=== PATIENT | female | born 1955 | race Caucasian/White ===

== ENCOUNTER 2016-10-23 09:10 | Outpatient (CLI) | payer OTHER ==
[~2016-10-23] VITALS: Ht 139.7 cm; Wt 700.0 kg
[~2016-10-23 09:10] MED LIST: CATS CLAW OR; CIPR-250 PO; EFFE37.527 OR; FISH1000 OR; HYDR50TA8 OR; INFL10VL IV; NS 1,000 ML IV SCH; PAXI10TA OR; PRED5TAB OR; PRIMI25TA OR; SIMV40TA2 OR; TYL PO; VICO5TAB16 PO; VITAMIN D50000 UNT OR; ZOCO5TAB OR; [UNRECOGNIZED DRUG - OTHER] OR; diphenhydrAMINE 25 MG CAP PO SCH
[2016-10-23] MEDS ORDERED: inFLIXimab INJECTION 700 MG in NS 180 ML IV ONE (09:15)
== END 2016-10-23 12:00 | disposition home or self-care (01) ==
LOC: M INFU 09:10
PROVIDERS: ATTEND Internal Medicine Gastroenterology
DX: K50.00 Crohn's disease of small intestine without complications (principal); Z79.52 Long term (current) use of systemic steroids; Z79.899 Other long term (current) drug therapy; Z88.2 Allergy status to sulfonamides; Z88.8 Allergy status to other drugs, medicaments and biological substances
CPT/HCPCS: 96413; 96415; J1745

== ENCOUNTER 2016-11-16 09:13 | Outpatient (CLI) | payer OTHER ==
[~2016-11-16] VITALS: Ht 139.7 cm; Wt 62.0 kg
[~2016-11-16 09:13] MED LIST changes: -NS 1,000 ML IV SCH; -diphenhydrAMINE 25 MG CAP PO SCH
[2016-11-16] MEDS ORDERED: NS 1,000 ML IV SCH (09:15)
[2016-11-16] MEDS ORDERED: diphenhydrAMINE 25 MG CAP PO ONE (09:30)
[2016-11-16] MEDS ORDERED: inFLIXimab INJECTION 700 MG in NS 180 ML IV ONE (10:00)
== END 2016-11-16 12:15 | disposition home or self-care (01) ==
LOC: M INFU 09:13
PROVIDERS: ATTEND Internal Medicine Gastroenterology
DX: K50.00 Crohn's disease of small intestine without complications (principal); Z91.041 Radiographic dye allergy status; Z88.8 Allergy status to other drugs, medicaments and biological substances; Z88.1 Allergy status to other antibiotic agents; Z88.2 Allergy status to sulfonamides; Z79.899 Other long term (current) drug therapy
CPT/HCPCS: 96413; 96415; J1745

== ENCOUNTER 2016-12-14 08:44 | Outpatient (CLI) | payer OTHER ==
[~2016-12-14] VITALS: Ht 139.7 cm; Wt 62.0 kg
[~2016-12-14 08:44] MED LIST changes: +diphenhydrAMINE 25 MG CAP PO SCH
[2016-12-14] MEDS ORDERED: NS 1,000 ML IV SCH (09:00)
[2016-12-14] MEDS ORDERED: inFLIXimab INJECTION 700 MG in NS 180 ML IV ONE (09:00)
== END 2016-12-14 11:45 | disposition home or self-care (01) ==
LOC: M INFU 08:44
PROVIDERS: ATTEND Internal Medicine Gastroenterology
DX: K50.00 Crohn's disease of small intestine without complications (principal); Z79.899 Other long term (current) drug therapy; Z88.8 Allergy status to other drugs, medicaments and biological substances; Z88.2 Allergy status to sulfonamides
CPT/HCPCS: 96413; 96415; J1745

== ENCOUNTER → 2016-12-21 | Outpatient (CLI) | payer OTHER ==
[~2016-12-21] MED LIST changes: -diphenhydrAMINE 25 MG CAP PO SCH
--- NOTE | 2016-12-21 18:15 | REP ---
RIGHT KNEE: HISTORY: Swelling and pain. COMPARISON: 10/31/2006. There is tricompartmental marginal osteophytosis which has increased. Two limited views show no evidence of an acute fracture. 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 These two limited views show no evidence of an acute fracture. IMPRESSION: Chronic changes as described above. If an effusion is of clinical concern, then an MRI would be warranted. Signed by Drew Domingo DO 12/21/2016 06:43 P
== END ==
LOC: M RAD 16:59
PROVIDERS: ATTEND Physician Assistant Medical
DX: M25.561 Pain in right knee (principal); M79.89 Other specified soft tissue disorders

== ENCOUNTER 2017-01-11 09:30 | Outpatient (CLI) | payer OTHER ==
[~2017-01-11] VITALS: Ht 139.7 cm; Wt 62.0 kg
[~2017-01-11 09:30] MED LIST changes: +diphenhydrAMINE 25 MG CAP PO SCH
[2017-01-11] MEDS ORDERED: NS 1,000 ML IV SCH (09:45)
[2017-01-11] MEDS ORDERED: inFLIXimab INJECTION 700 MG in NS 180 ML IV ONE (09:45)
== END 2017-01-11 12:35 | disposition home or self-care (01) ==
LOC: M INFU 09:30
PROVIDERS: ATTEND Internal Medicine Gastroenterology
DX: K50.00 Crohn's disease of small intestine without complications (principal); Z79.899 Other long term (current) drug therapy; Z79.52 Long term (current) use of systemic steroids; Z88.8 Allergy status to other drugs, medicaments and biological substances
CPT/HCPCS: 96413; 96415; J1745

== ENCOUNTER 2017-02-08 08:57 | Outpatient (CLI) | payer OTHER ==
[~2017-02-08] VITALS: Ht 139.7 cm; Wt 62.0 kg
[2017-02-08] MEDS ORDERED: NS 1,000 ML IV SCH (09:15)
[2017-02-08] MEDS ORDERED: inFLIXimab INJECTION 700 MG in NS 180 ML IV ONE (10:00)
== END 2017-02-08 12:00 | disposition home or self-care (01) ==
LOC: M INFU 08:57
PROVIDERS: ATTEND Internal Medicine Gastroenterology
DX: K50.00 Crohn's disease of small intestine without complications (principal); Z91.041 Radiographic dye allergy status; Z88.8 Allergy status to other drugs, medicaments and biological substances; Z88.2 Allergy status to sulfonamides; Z88.1 Allergy status to other antibiotic agents; Z79.899 Other long term (current) drug therapy
CPT/HCPCS: 96413; 96415; J1745

== ENCOUNTER → 2017-03-06 | Outpatient (CLI) | payer OTHER ==
[~2017-03-06] MED LIST changes: -diphenhydrAMINE 25 MG CAP PO SCH
[2017-03-06 14:16] LABS: BASO % 0.4 % (0.0-1.0); EOS # 0.1 K/mm3 (0.0-0.50); LARGE UNSTAINED CELL # 0.1 K/mm3 (0.0-0.4); LARGE UNSTAINED CELL % 2.8 % (0.0-4.0); LYMPH # 1.6 K/mm3 (1.5-4.5); LYMPH % 38.8 % (24.0-44.0); MEAN CORPUSCULAR HEMOGLOBIN 30.7 pg (27.0-33.0); MEAN CORPUSCULAR HGB CONC 32.9 g/dl (32.0-36.5); MEAN CORPUSCULAR VOLUME 93.3 fl (80.0-96.0); MONO # 0.3 K/mm3 (0.0-0.8); MONO % 6.8 % (0.0-5.0); NEUTROPHILS # 1.9 K/mm3 (1.8-7.7); NEUTROPHILS % 49.3 % (36.0-66.0); PLATELET COUNT, AUTOMATED 289 k/mm3 (150-450); RED CELL DISTRIBUTION WIDTH 14.6 % (11.5-14.5); WHITE BLOOD COUNT 3.9 K/mm3 (4.0-10.0)
[2017-03-06 15:26] LABS: ALBUMIN 3.9 GM/DL (3.2-5.2); ALBUMIN/GLOBULIN RATIO 1.18 (1.00-1.93); ALKALINE PHOSPHATASE 52 U/L (45-117); ALT/SGPT 55 U/L (12-78); ANION GAP 8 MEQ/L (8-16); AST/SGOT 27 U/L (15-37); BILIRUBIN,TOTAL 0.3 MG/DL (0.2-1.0); BLOOD UREA NITROGEN 14 MG/DL (7-18); CALCIUM LEVEL 9.2 MG/DL (8.8-10.2); CARBON DIOXIDE LEVEL 29 MEQ/L (21-32); CHLORIDE LEVEL 103 MEQ/L (98-107); CHOLESTEROL LEVEL 204 MG/DL (<200); CREATININE FOR GFR 0.79 MG/DL (0.55-1.02); GLOMERULAR FILTRATION RATE > 60.0 (>45); GLUCOSE, FASTING 85 MG/DL (80-110); POTASSIUM SERUM 4.7 MEQ/L (3.5-5.1); SODIUM LEVEL 140 MEQ/L (136-145); TOTAL PROTEIN 7.2 GM/DL (6.4-8.2); TRIGLYCERIDES LEVEL 180 MG/DL (<150)
== END ==
LOC: M SMT 11:52
PROVIDERS: ATTEND Family Medicine
DX: E78.2 Mixed hyperlipidemia (principal); K21.9 Gastro-esophageal reflux disease without esophagitis

== ENCOUNTER 2017-03-08 08:29 | Outpatient (CLI) | payer OTHER ==
[~2017-03-08] VITALS: Ht 139.7 cm; Wt 62.0 kg
[~2017-03-08 08:29] MED LIST changes: +diphenhydrAMINE 25 MG CAP PO SCH
[2017-03-08] MEDS ORDERED: NS 1,000 ML IV SCH (08:45)
[2017-03-08] MEDS ORDERED: inFLIXimab INJECTION 700 MG in NS 180 ML IV ONE (09:00)
== END 2017-03-08 11:35 | disposition home or self-care (01) ==
LOC: M INFU 08:29
PROVIDERS: ATTEND Internal Medicine Gastroenterology
DX: K50.00 Crohn's disease of small intestine without complications (principal); Z91.041 Radiographic dye allergy status; Z88.8 Allergy status to other drugs, medicaments and biological substances; Z88.2 Allergy status to sulfonamides; Z88.1 Allergy status to other antibiotic agents; Z79.899 Other long term (current) drug therapy
CPT/HCPCS: 96413; 96415; J1745

== ENCOUNTER → 2017-04-02 | Outpatient (CLI) | payer OTHER ==
[~2017-04-02] MED LIST changes: -diphenhydrAMINE 25 MG CAP PO SCH
--- NOTE | 2017-04-04 10:50 | REPMRS ---
Patient History The patient states she had a clinical breast exam in 12/15 Patient is postmenopausal and had first child at age 31. Family history of prostate cancer in maternal grandfather at age 81. Digital Woman Screen Mammo: April 02, 2017 - Exam #: [id number] Bilateral CC and MLO view(s) were taken. Technologist: Christelle Alatorre, Technologist Prior study comparison: November 19, 2015, digital woman screen mammo performed at [facility] to [facility]. February 17, 2014, digital woman screen mammo performed at [facility] to [facility]. November 18, 2012, digital woman screen mammo performed at [facility]. FINDINGS: The breast tissue is heterogeneously dense. This may lower the sensitivity of mammography. There is a moderate amount of heterogeneously dense fibroglandular tissue which is fairly symmetric. There is no interval development of dominant mass, architectural distortion, or clustered microcalcification typical of malignancy. There has been no change in the appearance of the mammogram from the prior studies. ASSESSMENT: BI-RADS/ACR category 1 mammogram. Negative. Recommendation Routine screening mammogram of both breasts in 1 year (for women over age 40). This mammogram was interpreted with the aid of an FDA-approved computer-aided dectection system. Electronically Signed By: Kyrie Dewey MD 04/04/17 [id number]
== END ==
LOC: M WHC 14:33
PROVIDERS: ATTEND Family Medicine
DX: Z12.31 Encounter for screening mammogram for malignant neoplasm of breast (principal)

== ENCOUNTER 2017-04-04 08:00 | Outpatient (CLI) | payer OTHER ==
[~2017-04-04 08:00] MED LIST changes: +diphenhydrAMINE 25 MG CAP PO SCH
[2017-04-04] MEDS ORDERED: inFLIXimab INJECTION 700 MG in NS 180 ML IV ONE (09:00)
[2017-04-04] MEDS ORDERED: NS 1,000 ML IV SCH (09:00)
== END 2017-04-04 11:00 | disposition home or self-care (01) ==
LOC: M INFU 08:00
PROVIDERS: ATTEND Internal Medicine Gastroenterology
DX: K50.00 Crohn's disease of small intestine without complications (principal); Z79.899 Other long term (current) drug therapy; Z91.041 Radiographic dye allergy status; Z88.8 Allergy status to other drugs, medicaments and biological substances; Z88.2 Allergy status to sulfonamides
CPT/HCPCS: 96413; 96415; J1745

== ENCOUNTER 2017-05-01 08:53 | Outpatient (CLI) | payer OTHER ==
[2017-05-01] MEDS ORDERED: NS 1,000 ML IV SCH (09:15)
[2017-05-01] MEDS ORDERED: inFLIXimab INJECTION 700 MG in NS 180 ML IV ONE (09:15)
== END 2017-05-01 12:00 | disposition home or self-care (01) ==
LOC: M INFU 08:53
PROVIDERS: ATTEND Internal Medicine Gastroenterology
DX: K50.00 Crohn's disease of small intestine without complications (principal); Z91.041 Radiographic dye allergy status; Z88.8 Allergy status to other drugs, medicaments and biological substances; Z88.2 Allergy status to sulfonamides; Z88.1 Allergy status to other antibiotic agents; Z79.899 Other long term (current) drug therapy
CPT/HCPCS: 96413; 96415; J1745

== ENCOUNTER → 2017-05-02 | Outpatient (CLI) | payer OTHER ==
[~2017-05-02] MED LIST changes: +E-Z-GAS II EFFERVESCENT PACKET (SODIUM BICARB./CITRIC ACID/SIMETHICONE) As Ordered ONE; +E-Z-HD 98% w/w 340GM SUSP BTL As Ordered ONE; +E-Z-PAQUE 96% w/w SUSP 176GM BTL As Ordered ONE; -diphenhydrAMINE 25 MG CAP PO SCH
--- NOTE | 2017-05-02 16:50 | REP ---
UPPER GI, AIR CONTRAST, AND SMALL BOWEL FOLLOW THROUGH: The procedure was performed under the direct supervision of Dr. Sebastian. The images were reviewed with Dr. Sebastian. The formulator compounder film shows no organomegaly or pathological masses. The intestinal gas pattern is nonspecific. There is suggestion of bilateral sacroiliitis. Liquid barium and gas-producing granules were given in the erect position as well as liquid barium in the prone oblique positions in order to perform a double contrast upper GI examination. Additionally, liquid barium was given at the end of the examination in order to perform a small bowel follow through. The oral and pharyngeal stages of deglutition are unremarkable. Esophageal transport is prompt and efficient and there is no esophagitis, stricture, mucosal ring or hiatal hernia. Gastroesophageal reflux is not demonstrated on this examination. Within the stomach, there is question of nodularity within the folds. However, this may be due to lack of distention. The stomach is otherwise unremarkable. The duodenal liao are normally outlined. The mucosal folds are smooth and regular. There is no duodenitis, pancreatitis, peptic ulcer disease or neoplasm. The visualized portion of the proximal small bowel appears normal in course and caliber. The barium column was followed through the small bowel to the level of the terminal ileum. Small bowel transit time is approximately 30 minutes. During fluoroscopy, gentle palpation shows all loops are freely movable and pliable. There are no fixed or angulated loops. The small bowel mucosal pattern is normal in course and caliber. There is no transition to suggest a partial small bowel obstruction. Spot filming of the terminal ileum shows it to be unremarkable. There is no evidence of Crohn's disease on today's examination. IMPRESSION: 1. Within the stomach, there is questionable nodularity within the gastric folds, however, this may be due to lack of distention. 2. Small bowel follow through examination within normal limits. There is no evidence of Crohn's disease on today's examination. 2 minutes and 28 seconds of fluoroscopy time was utilized for this procedure. Reviewed by WILY Woods 05/03/2017 05:40 PEdited and Signed by Lambert Sebastian MD 05/03/2017 06:48 P
== END ==
LOC: M RAD 09:15
PROVIDERS: ATTEND Internal Medicine Gastroenterology
DX: K50.00 Crohn's disease of small intestine without complications (principal)

== ENCOUNTER → 2017-05-09 | Outpatient (CLI) | payer OTHER ==
[~2017-05-09] MED LIST changes: -E-Z-GAS II EFFERVESCENT PACKET (SODIUM BICARB./CITRIC ACID/SIMETHICONE) As Ordered ONE; -E-Z-HD 98% w/w 340GM SUSP BTL As Ordered ONE; -E-Z-PAQUE 96% w/w SUSP 176GM BTL As Ordered ONE
[2017-05-09 11:13] LABS: BASO % 0.4 % (0.0-1.0); EOS # 0.1 K/mm3 (0.0-0.50); EOS % 1.7 % (0.0-3.0); LARGE UNSTAINED CELL # 0.2 K/mm3 (0.0-0.4); LARGE UNSTAINED CELL % 4.4 % (0.0-4.0); LYMPH # 1.1 K/mm3 (1.5-4.5); LYMPH % 30.4 % (24.0-44.0); MEAN CORPUSCULAR HEMOGLOBIN 31.2 pg (27.0-33.0); MEAN CORPUSCULAR HGB CONC 32.8 g/dl (32.0-36.5); MEAN CORPUSCULAR VOLUME 95.3 fl (80.0-96.0); MONO # 0.2 K/mm3 (0.0-0.8); MONO % 5.9 % (0.0-5.0); NEUTROPHILS # 2.1 K/mm3 (1.8-7.7); NEUTROPHILS % 57.2 % (36.0-66.0); PLATELET COUNT, AUTOMATED 301 k/mm3 (150-450); RED CELL DISTRIBUTION WIDTH 14.5 % (11.5-14.5); WHITE BLOOD COUNT 3.6 K/mm3 (4.0-10.0)
[2017-05-09 11:40] LABS: ERYTHROCYTE SEDIMENTATION RATE 17 mm/hr (0-30)
[2017-05-09 11:53] LABS: ALBUMIN 3.9 GM/DL (3.2-5.2); ALBUMIN/GLOBULIN RATIO 1.11 (1.00-1.93); ALKALINE PHOSPHATASE 55 U/L (45-117); ALT/SGPT 60 U/L (12-78); ANION GAP 5 MEQ/L (8-16); AST/SGOT 36 U/L (15-37); BILIRUBIN,TOTAL 0.3 MG/DL (0.2-1.0); BLOOD UREA NITROGEN 11 MG/DL (7-18); CARBON DIOXIDE LEVEL 30 MEQ/L (21-32); CHLORIDE LEVEL 103 MEQ/L (98-107); CREATININE FOR GFR 0.73 MG/DL (0.55-1.02); GLOMERULAR FILTRATION RATE > 60.0 (>45); GLUCOSE, FASTING 86 MG/DL (80-110); POTASSIUM SERUM 4.5 MEQ/L (3.5-5.1); SODIUM LEVEL 138 MEQ/L (136-145); TOTAL PROTEIN 7.4 GM/DL (6.4-8.2)
[2017-05-11 00:06] LABS: PHENOBARBITAL (PRIMIDONE) 12 ug/mL (15-40)
== END ==
LOC: M LAB 10:14
PROVIDERS: ATTEND Psychiatry & Neurology Neurology
DX: R51 Headache (principal)

== ENCOUNTER 2017-05-29 11:55 | Outpatient (CLI) | payer OTHER ==
[2017-05-29] MEDS ORDERED: NS 1,000 ML IV SCH (12:15)
[2017-05-29] MEDS ORDERED: diphenhydrAMINE 25 MG CAP PO ONE (12:15)
[2017-05-29] MEDS ORDERED: inFLIXimab INJECTION 700 MG in NS 180 ML IV ONE (12:15)
== END 2017-05-29 15:00 | disposition home or self-care (01) ==
LOC: M INFU 11:55
PROVIDERS: ATTEND Internal Medicine Gastroenterology
DX: K50.00 Crohn's disease of small intestine without complications (principal); Z91.041 Radiographic dye allergy status; Z88.1 Allergy status to other antibiotic agents; Z88.2 Allergy status to sulfonamides; Z88.8 Allergy status to other drugs, medicaments and biological substances; Z79.899 Other long term (current) drug therapy
CPT/HCPCS: 96413; 96415; J1745

== ENCOUNTER 2017-06-26 08:42 | Outpatient (CLI) | payer OTHER ==
[2017-06-26] MEDS ORDERED: diphenhydrAMINE 25 MG CAP PO ONE (09:00)
[2017-06-26] MEDS ORDERED: NS 1,000 ML IV SCH (09:00)
[2017-06-26] MEDS ORDERED: inFLIXimab INJECTION 700 MG in NS 180 ML IV ONE (09:00)
== END 2017-06-26 11:40 | disposition home or self-care (01) ==
LOC: M INFU 08:42
PROVIDERS: ATTEND Internal Medicine Gastroenterology
DX: K50.00 Crohn's disease of small intestine without complications (principal); Q07.00 Arnold-Chiari syndrome without spina bifida or hydrocephalus; Z72.0 Tobacco use; Z88.8 Allergy status to other drugs, medicaments and biological substances; Z88.2 Allergy status to sulfonamides; Z91.041 Radiographic dye allergy status; Z88.3 Allergy status to other anti-infective agents; Z79.899 Other long term (current) drug therapy
CPT/HCPCS: 96413; 96415; J1745

== ENCOUNTER 2017-07-24 08:23 | Outpatient (CLI) | payer OTHER ==
[~2017-07-24] VITALS: Ht 139.7 cm; Wt 62.0 kg
[2017-07-24] MEDS ORDERED: diphenhydrAMINE 25 MG CAP PO ONE (08:45)
[2017-07-24] MEDS ORDERED: NS 1,000 ML IV SCH (08:45)
[2017-07-24] MEDS ORDERED: ACETAMINOPHEN TAB 650MG DOSE (2X325MG) PO ONE (08:45)
[2017-07-24] MEDS ORDERED: INFLIXIMAB BIOSIMILAR 700 MG in NS 180 ML IV ONE (09:00)
== END 2017-07-24 12:20 | disposition home or self-care (01) ==
LOC: M INFU 08:23
PROVIDERS: ATTEND Internal Medicine Gastroenterology
DX: K50.00 Crohn's disease of small intestine without complications (principal); K21.9 Gastro-esophageal reflux disease without esophagitis; I10 Essential (primary) hypertension; E78.00 Pure hypercholesterolemia, unspecified; M54.2 Cervicalgia; M19.90 Unspecified osteoarthritis, unspecified site; F17.210 Nicotine dependence, cigarettes, uncomplicated; Z79.891 Long term (current) use of opiate analgesic; Z79.899 Other long term (current) drug therapy; Z88.2 Allergy status to sulfonamides; Z88.3 Allergy status to other anti-infective agents; Z88.8 Allergy status to other drugs, medicaments and biological substances; Z91.041 Radiographic dye allergy status
CPT/HCPCS: 96413; 96415; Q5102

== ENCOUNTER 2017-08-22 07:59 | Outpatient (CLI) | payer OTHER ==
[2017-08-22] MEDS ORDERED: NS 1,000 ML IV SCH (08:30)
[2017-08-22] MEDS ORDERED: diphenhydrAMINE 25 MG CAP PO ONE (08:30)
[2017-08-22] MEDS ORDERED: ACETAMINOPHEN TAB 650MG DOSE (2X325MG) PO ONE (08:30)
[2017-08-22] MEDS ORDERED: inFLIXimab INJECTION 700 MG in NS 180 ML IV ONE (09:00)
== END 2017-08-22 11:05 | disposition home or self-care (01) ==
LOC: M INFU 07:59
PROVIDERS: ATTEND Internal Medicine Gastroenterology
DX: K50.00 Crohn's disease of small intestine without complications (principal); Q07.00 Arnold-Chiari syndrome without spina bifida or hydrocephalus; Z91.041 Radiographic dye allergy status; Z88.8 Allergy status to other drugs, medicaments and biological substances; Z88.2 Allergy status to sulfonamides; Z88.3 Allergy status to other anti-infective agents; Z72.0 Tobacco use; Z79.899 Other long term (current) drug therapy
CPT/HCPCS: 96413; 96415; J1745

== ENCOUNTER 2017-10-04 08:54 | Outpatient (CLI) | payer OTHER ==
[2017-10-04] MEDS: diphenhydrAMINE 25 MG CAP PO (09:09)
[2017-10-04] MEDS: NS 1,000 ML IV (09:10)
[2017-10-04] MEDS: inFLIXimab INJECTION 700 MG in NS 180 ML IV (09:16)
== END 2017-10-04 11:30 | disposition home or self-care (01) ==
LOC: M INFU 08:54
DX: K50.00 Crohn's disease of small intestine without complications (principal); Z79.899 Other long term (current) drug therapy; I10 Essential (primary) hypertension; M19.90 Unspecified osteoarthritis, unspecified site; M54.2 Cervicalgia; Z87.891 Personal history of nicotine dependence; Z88.2 Allergy status to sulfonamides; Z88.3 Allergy status to other anti-infective agents
CPT/HCPCS: 96413

== ENCOUNTER 2017-11-05 08:00 | Outpatient (CLI) | payer OTHER ==
[2017-11-05] MEDS: diphenhydrAMINE 25 MG CAP PO (08:25)
[2017-11-05] MEDS: NS 1,000 ML IV (08:25)
[2017-11-05] MEDS: inFLIXimab INJECTION 700 MG in NS 180 ML IV (08:49)
== END 2017-11-05 11:05 | disposition home or self-care (01) ==
LOC: M INFU 08:00
DX: K50.00 Crohn's disease of small intestine without complications (principal); Z79.899 Other long term (current) drug therapy; Z91.041 Radiographic dye allergy status; Z88.8 Allergy status to other drugs, medicaments and biological substances; Z88.3 Allergy status to other anti-infective agents; Z88.2 Allergy status to sulfonamides
CPT/HCPCS: J1745

== ENCOUNTER 2017-12-03 08:41 | Outpatient (CLI) | payer OTHER ==
[2017-12-03] MEDS: ACETAMINOPHEN TAB 650MG DOSE (2X325MG) PO (09:00)
[2017-12-03] MEDS: diphenhydrAMINE 25 MG CAP PO (09:00)
[2017-12-03] MEDS: NS 1,000 ML IV (09:06)
[2017-12-03] MEDS: inFLIXimab INJECTION 700 MG in NS 180 ML IV (09:43)
[2017-12-03] MEDS ORDERED: INFLIXIMAB BIOSIMILAR 700 MG in NS 180 ML IV (10:00)
== END 2017-12-03 12:15 | disposition home or self-care (01) ==
LOC: M INFU 08:41
DX: K50.10 Crohn's disease of large intestine without complications (principal); K21.9 Gastro-esophageal reflux disease without esophagitis; M19.90 Unspecified osteoarthritis, unspecified site; M54.2 Cervicalgia; F17.210 Nicotine dependence, cigarettes, uncomplicated; Z79.899 Other long term (current) drug therapy; Z91.040 Latex allergy status; Z88.8 Allergy status to other drugs, medicaments and biological substances
CPT/HCPCS: J1745

== ENCOUNTER 2018-01-10 08:31 | Outpatient (CLI) | payer OTHER ==
[2018-01-10] MEDS: diphenhydrAMINE 25 MG CAP PO (09:14)
[2018-01-10] MEDS: NS 1,000 ML IV (09:14)
[2018-01-10] MEDS: inFLIXimab INJECTION 700 MG in NS 180 ML IV (09:31)
== END 2018-01-10 11:35 | disposition home or self-care (01) ==
LOC: M INFU 08:31
DX: K50.00 Crohn's disease of small intestine without complications (principal); K21.9 Gastro-esophageal reflux disease without esophagitis; F17.210 Nicotine dependence, cigarettes, uncomplicated; M12.9 Arthropathy, unspecified; Z79.891 Long term (current) use of opiate analgesic; Z79.899 Other long term (current) drug therapy; Z91.041 Radiographic dye allergy status; Z88.8 Allergy status to other drugs, medicaments and biological substances
CPT/HCPCS: J1745

== ENCOUNTER → 2018-01-31 | Outpatient (CLI) | payer OTHER ==
[2018-01-31 18:26] LABS: BASO % 0.6 % (0.0-1.0); EOS # 0.1 10^3/uL (0.0-0.50); EOS % 1.9 % (0.0-3.0); HEMATOCRIT 35.4 % (36.0-47.0); HEMOGLOBIN 11.5 g/dl (12.0-15.5); LYMPH # 1.6 10^3/uL (1.5-4.5); LYMPH % 42.9 % (24.0-44.0); MEAN CORPUSCULAR HEMOGLOBIN 31.4 pg (27.0-33.0); MEAN CORPUSCULAR HGB CONC 32.5 g/dl (32.0-36.5); MEAN CORPUSCULAR VOLUME 96.7 fl (80.0-96.0); MONO # 0.4 10^3/uL (0.0-0.8); MONO % 9.7 % (0.0-5.0); NEUTROPHILS # 1.6 10^3/uL (1.8-7.7); NEUTROPHILS % 44.9 % (36.0-66.0); PLATELET COUNT, AUTOMATED 309 10^3/uL (150-450); RED BLOOD COUNT 3.66 10^6/uL (4.00-5.40); RED CELL DISTRIBUTION WIDTH 15.5 % (11.5-14.5); WHITE BLOOD COUNT 3.6 10^3/uL (4.0-10.0)
[2018-01-31 18:57] LABS: ALBUMIN 3.6 GM/DL (3.2-5.2); ALBUMIN/GLOBULIN RATIO 1.03 (1.00-1.93); ALKALINE PHOSPHATASE 60 U/L (45-117); ALT/SGPT 74 U/L (12-78); ANION GAP 4 MEQ/L (8-16); AST/SGOT 32 U/L (7-37); BILIRUBIN,TOTAL 0.3 MG/DL (0.2-1.0); BLOOD UREA NITROGEN 10 MG/DL (7-18); CALCIUM LEVEL 8.7 MG/DL (8.8-10.2); CARBON DIOXIDE LEVEL 31 MEQ/L (21-32); CHLORIDE LEVEL 105 MEQ/L (98-107); CHOLESTEROL LEVEL 136 MG/DL (<200); CHOLESTEROL RISK RATIO 1.915 (<5); CREATININE FOR GFR 0.68 MG/DL (0.55-1.30); FREE T4 0.75 NG/DL (0.76-1.46); GLOMERULAR FILTRATION RATE > 60.0 (>45); GLUCOSE, FASTING 85 MG/DL (70-100); HDL CHOLESTEROL 71 MG/DL (>40); LDL CHOLESTEROL 46.2 MG/DL (<100); NON-HDL-C 65 MG/DL; POTASSIUM SERUM 4.6 MEQ/L (3.5-5.1); SODIUM LEVEL 140 MEQ/L (136-145); TOTAL PROTEIN 7.1 GM/DL (6.4-8.2); TRIGLYCERIDES LEVEL 94 MG/DL (<150)
== END ==
LOC: M SMT 13:50
DX: E78.2 Mixed hyperlipidemia (principal); K50.00 Crohn's disease of small intestine without complications
CPT/HCPCS: 84443

== ENCOUNTER → 2018-01-31 | Outpatient (CLI) | payer OTHER ==
[2018-01-31 18:47] LABS: ALBUMIN 3.6 GM/DL (3.2-5.2); ALBUMIN/GLOBULIN RATIO 1.06 (1.00-1.93); ALKALINE PHOSPHATASE 60 U/L (45-117); ALT/SGPT 79 U/L (12-78); ANION GAP 5 MEQ/L (8-16); AST/SGOT 33 U/L (7-37); BILIRUBIN,TOTAL 0.3 MG/DL (0.2-1.0); BLOOD UREA NITROGEN 10 MG/DL (7-18); CALCIUM LEVEL 8.6 MG/DL (8.8-10.2); CARBON DIOXIDE LEVEL 30 MEQ/L (21-32); CHLORIDE LEVEL 105 MEQ/L (98-107); CREATININE FOR GFR 0.68 MG/DL (0.55-1.30); GLOMERULAR FILTRATION RATE > 60.0 (>45); GLUCOSE, FASTING 86 MG/DL (70-100); POTASSIUM SERUM 4.6 MEQ/L (3.5-5.1); SODIUM LEVEL 140 MEQ/L (136-145)
== END ==
LOC: M SMT 13:45
DX: R94.5 Abnormal results of liver function studies (principal)
CPT/HCPCS: 80053

== ENCOUNTER 2018-02-07 08:28 | Outpatient (CLI) | payer OTHER ==
[2018-02-07] MEDS: ACETAMINOPHEN 650 MG PO PO (08:45)
[2018-02-07] MEDS ORDERED: NS 1,000 ML IV (08:45)
[2018-02-07] MEDS: diphenhydrAMINE 25 MG CAP PO (08:56)
[2018-02-07] MEDS: inFLIXimab INJECTION 700 MG in NS 180 ML IV (09:48)
[2018-02-07] MEDS: FILTER 1.2 MICRON (ADULT TPN/MANNITOL/REMICADE) XX (09:48)
== END 2018-02-07 12:30 | disposition home or self-care (01) ==
LOC: M INFU 08:28
DX: K50.00 Crohn's disease of small intestine without complications (principal); I10 Essential (primary) hypertension; K21.9 Gastro-esophageal reflux disease without esophagitis; M54.9 Dorsalgia, unspecified; F17.210 Nicotine dependence, cigarettes, uncomplicated; Z79.891 Long term (current) use of opiate analgesic; Z79.899 Other long term (current) drug therapy; Z88.8 Allergy status to other drugs, medicaments and biological substances; Z91.041 Radiographic dye allergy status; Z90.711 Acquired absence of uterus with remaining cervical stump
CPT/HCPCS: J1745

== ENCOUNTER → 2018-03-05 | Outpatient (CLI) | payer OTHER ==
[2018-03-05 17:42] LABS: FOLATE 14.9 NG/ML; VITAMIN B12 LEVEL 543 PG/ML
[2018-03-05 18:16] LABS: BASO % 0.5 % (0.0-1.0); EOS # 0.1 10^3/uL (0.0-0.50); EOS % 1.7 % (0.0-3.0); HEMATOCRIT 37.6 % (36.0-47.0); HEMOGLOBIN 12.4 g/dl (12.0-15.5); IMMATURE GRANULOCYTE % 0.2 % (0-3.0); LYMPH # 1.7 10^3/uL (1.5-4.5); MEAN CORPUSCULAR HEMOGLOBIN 31.6 pg (27.0-33.0); MEAN CORPUSCULAR VOLUME 95.9 fl (80.0-96.0); MONO # 0.4 10^3/uL (0.0-0.8); MONO % 9.5 % (0.0-5.0); NEUTROPHILS # 1.9 10^3/uL (1.8-7.7); NEUTROPHILS % 46.1 % (36.0-66.0); PLATELET COUNT, AUTOMATED 288 10^3/uL (150-450); RED BLOOD COUNT 3.92 10^6/uL (4.00-5.40); RED CELL DISTRIBUTION WIDTH 15.1 % (11.5-14.5); WHITE BLOOD COUNT 4.1 10^3/uL (4.0-10.0)
== END ==
LOC: M SMT 13:34
DX: D64.9 Anemia, unspecified (principal)

== ENCOUNTER 2018-03-07 14:56 | Outpatient (CLI) | payer OTHER ==
[2018-03-07] MEDS: ACETAMINOPHEN TAB 650MG DOSE (2X325MG) PO (15:00)
[2018-03-07] MEDS: diphenhydrAMINE 25 MG CAP PO (15:00)
[2018-03-07] MEDS: FILTER 1.2 MICRON (ADULT TPN/MANNITOL/REMICADE) XX (15:00)
[2018-03-07] MEDS: NS 1,000 ML IV (15:54)
[2018-03-07] MEDS: inFLIXimab INJECTION 700 MG in NS 180 ML IV (15:55)
== END 2018-03-07 18:25 | disposition home or self-care (01) ==
LOC: M INFU 14:56
DX: K50.014 Crohn's disease of small intestine with abscess (principal); I10 Essential (primary) hypertension; K21.9 Gastro-esophageal reflux disease without esophagitis; M12.9 Arthropathy, unspecified; M54.2 Cervicalgia; Z79.899 Other long term (current) drug therapy; Z88.8 Allergy status to other drugs, medicaments and biological substances; Z91.041 Radiographic dye allergy status; Z88.3 Allergy status to other anti-infective agents
CPT/HCPCS: J1745

== ENCOUNTER 2018-04-04 07:58 | Outpatient (CLI) | payer OTHER ==
[2018-04-04] MEDS ORDERED: NS 1,000 ML IV (08:15)
[2018-04-04] MEDS: ACETAMINOPHEN TAB 650MG DOSE (2X325MG) PO (08:15)
[2018-04-04] MEDS ORDERED: FILTER 1.2 MICRON (ADULT TPN/MANNITOL/REMICADE) XX (08:15)
[2018-04-04] MEDS: diphenhydrAMINE 25 MG CAP PO (08:21)
[2018-04-04] MEDS ORDERED: inFLIXimab INJECTION 700 MG in NS 180 ML IV (09:00)
== END 2018-04-04 11:20 | disposition home or self-care (01) ==
LOC: M INFU 07:58
DX: K50.00 Crohn's disease of small intestine without complications (principal); Z91.041 Radiographic dye allergy status; Z88.8 Allergy status to other drugs, medicaments and biological substances; Z88.3 Allergy status to other anti-infective agents; Z88.2 Allergy status to sulfonamides; Z79.899 Other long term (current) drug therapy
CPT/HCPCS: 96413

== ENCOUNTER → 2018-04-15 | Outpatient (CLI) | payer OTHER | LOC: M WHC 11:41 | DX: Z12.31 Encounter for screening mammogram for malignant neoplasm of breast (principal); M85.80 Other specified disorders of bone density and structure, unspecified site | CPT/HCPCS: 77067 ==

== ENCOUNTER → 2018-04-15 | Outpatient (REF) | payer OTHER | LOC: M SFHCWAGY 15:33 | DX: N76.6 Ulceration of vulva (principal) ==

== ENCOUNTER 2018-05-02 08:03 | Outpatient (CLI) | payer OTHER ==
[2018-05-02] MEDS: ACETAMINOPHEN TAB 650MG DOSE (2X325MG) PO (08:15)
[2018-05-02] MEDS: FILTER 1.2 MICRON (ADULT TPN/MANNITOL/REMICADE) XX (08:15)
[2018-05-02] MEDS: diphenhydrAMINE 25 MG CAP PO (08:26)
[2018-05-02] MEDS: NS 1,000 ML IV (08:27)
[2018-05-02] MEDS: inFLIXimab INJECTION 700 MG in NS 180 ML IV (08:42)
== END 2018-05-02 11:15 | disposition home or self-care (01) ==
LOC: M INFU 08:03
DX: K50.00 Crohn's disease of small intestine without complications (principal); Z91.041 Radiographic dye allergy status; Z88.8 Allergy status to other drugs, medicaments and biological substances; Z88.3 Allergy status to other anti-infective agents; Z88.2 Allergy status to sulfonamides; Z79.899 Other long term (current) drug therapy
CPT/HCPCS: J1745

== ENCOUNTER 2018-05-30 07:58 | Outpatient (CLI) | payer OTHER ==
[2018-05-30] MEDS ORDERED: diphenhydrAMINE 25 MG CAP As Ordered (08:13)
[2018-05-30] MEDS: diphenhydrAMINE 25 MG CAP PO (08:25)
[2018-05-30] MEDS ORDERED: NS 1,000 ML IV (08:30)
[2018-05-30] MEDS ORDERED: FILTER 1.2 MICRON (ADULT TPN/MANNITOL/REMICADE) XX (08:30)
[2018-05-30] MEDS: ACETAMINOPHEN TAB 650MG DOSE (2X325MG) PO (08:30)
[2018-05-30] MEDS: inFLIXimab INJECTION 700 MG in NS 180 ML IV (09:09)
== END 2018-05-30 11:30 | disposition home or self-care (01) ==
LOC: M INFU 07:58
DX: K50.00 Crohn's disease of small intestine without complications (principal); Z91.041 Radiographic dye allergy status; Z88.8 Allergy status to other drugs, medicaments and biological substances; Z88.2 Allergy status to sulfonamides; Z88.3 Allergy status to other anti-infective agents
CPT/HCPCS: J1745

== ENCOUNTER 2018-06-27 07:27 | Outpatient (CLI) | payer OTHER ==
[2018-06-27] MEDS: ACETAMINOPHEN TAB 650MG DOSE (2X325MG) PO (08:00)
[2018-06-27] MEDS ORDERED: NS 1,000 ML IV (08:00)
[2018-06-27] MEDS: FILTER 1.2 MICRON (ADULT TPN/MANNITOL/REMICADE) XX (08:00)
[2018-06-27] MEDS: diphenhydrAMINE 25 MG CAP PO (08:04)
[2018-06-27] MEDS: inFLIXimab INJECTION 700 MG in NS 180 ML IV (08:36)
== END 2018-06-27 11:30 | disposition home or self-care (01) ==
LOC: M INFU 07:27
DX: K50.00 Crohn's disease of small intestine without complications (principal); Z91.041 Radiographic dye allergy status; Z88.8 Allergy status to other drugs, medicaments and biological substances; Z88.2 Allergy status to sulfonamides; Z88.3 Allergy status to other anti-infective agents
CPT/HCPCS: J1745

== ENCOUNTER 2018-07-25 07:26 | Outpatient (CLI) | payer MEDICARE, OTHER ==
[2018-07-25] MEDS: diphenhydrAMINE 25 MG CAP PO (07:45)
[2018-07-25] MEDS: ACETAMINOPHEN TAB 650MG DOSE (2X325MG) PO (07:45)
[2018-07-25] MEDS ORDERED: NS 1,000 ML IV (08:00)
[2018-07-25] MEDS ORDERED: FILTER 1.2 MICRON (ADULT TPN/MANNITOL/REMICADE) XX (08:00)
[2018-07-25] MEDS: inFLIXimab INJECTION 700 MG in NS 180 ML IV (08:11)
== END 2018-07-25 10:55 | disposition home or self-care (01) ==
LOC: M INFU 07:26
DX: K50.90 Crohn's disease, unspecified, without complications (principal); Z79.891 Long term (current) use of opiate analgesic; Z79.899 Other long term (current) drug therapy; Z88.2 Allergy status to sulfonamides; Z88.3 Allergy status to other anti-infective agents; Z88.8 Allergy status to other drugs, medicaments and biological substances; Z91.041 Radiographic dye allergy status
CPT/HCPCS: J1745

== ENCOUNTER 2018-08-30 13:48 | Outpatient (CLI) | payer MEDICARE, OTHER ==
[2018-08-30] MEDS: diphenhydrAMINE 25MG PO PRIOR TO INFUSION PO (14:15)
[2018-08-30] MEDS: ACETAMINOPHEN 650MG PO PRIOR TO INFUSION PO (14:15)
[2018-08-30] MEDS ORDERED: NS 1,000 ML IV (14:15)
[2018-08-30] MEDS: FILTER 1.2 MICRON (ADULT TPN/MANNITOL/REMICADE) XX (14:30)
[2018-08-30] MEDS: inFLIXimab INJECTION 700 MG in NS 180 ML IV (14:34)
== END 2018-08-30 17:15 | disposition home or self-care (01) ==
LOC: M INFU 13:48
DX: K50.00 Crohn's disease of small intestine without complications (principal); Z79.899 Other long term (current) drug therapy; Z91.041 Radiographic dye allergy status; Z88.8 Allergy status to other drugs, medicaments and biological substances
CPT/HCPCS: J1745

== ENCOUNTER 2018-09-27 10:30 | Outpatient (CLI) | payer MEDICARE, OTHER ==
[~2018-09-27] VITALS: Ht 138.7 cm; Wt 62.0 kg
[2018-09-27] VITALS (9 sets, daily range): BP systolic 118–147; BP diastolic 60–87
[2018-09-27] MEDS ORDERED: ACETAMINOPHEN 650MG PO PRIOR TO INFUSION PO ONE (11:00)
[2018-09-27] MEDS ORDERED: FILTER 1.2 MICRON (ADULT TPN/MANNITOL/REMICADE) XX ONE (11:00)
[2018-09-27] MEDS ORDERED: inFLIXimab INJECTION 700 MG in NS 180 ML IV ONE (11:00)
[2018-09-27] MEDS ORDERED: diphenhydrAMINE 25MG PO PRIOR TO INFUSION PO ONE (11:00)
[2018-09-27] MEDS ORDERED: NS 1,000 ML IV SCH (11:00)
== END 2018-09-27 13:15 | disposition home or self-care (01) ==
LOC: M INFU 10:30
PROVIDERS: ATTEND Internal Medicine Gastroenterology
DX: K50.00 Crohn's disease of small intestine without complications (principal)
CPT/HCPCS: 96413; 96415; J1745

== ENCOUNTER 2018-10-29 07:54 | Outpatient (CLI) | payer MEDICARE, OTHER ==
[~2018-10-29] VITALS: Ht 139.7 cm; Wt 62.0 kg
[2018-10-29 08:00] VITALS: BP 133/87
[2018-10-29] MEDS ORDERED: FILTER 1.2 MICRON (ADULT TPN/MANNITOL/REMICADE) XX ONE (08:15)
[2018-10-29] MEDS ORDERED: diphenhydrAMINE 25MG PO PRIOR TO INFUSION PO ONE (08:15)
[2018-10-29] MEDS ORDERED: ACETAMINOPHEN 650MG PO PRIOR TO INFUSION PO ONE (08:15)
[2018-10-29] MEDS ORDERED: inFLIXimab INJECTION 700 MG in NS 180 ML IV ONE (08:15)
[2018-10-29] MEDS ORDERED: NS 1,000 ML IV SCH (08:15)
[2018-10-29 09:15] VITALS: BP 143/67
[2018-10-29 09:30] VITALS: BP 134/68
[2018-10-29 09:45] VITALS: BP 124/68
[2018-10-29 10:00] VITALS: BP 113/60
[2018-10-29 10:30] VITALS: BP 125/63
== END 2018-10-29 11:20 | disposition home or self-care (01) ==
LOC: M INFU 07:54
PROVIDERS: ATTEND Internal Medicine Gastroenterology
DX: K50.00 Crohn's disease of small intestine without complications (principal)
CPT/HCPCS: 96413; 96415; J1745

== ENCOUNTER 2018-11-26 08:50 | Outpatient (CLI) | payer MEDICARE, OTHER ==
[~2018-11-26] VITALS: Ht 134.6 cm; Wt 62.0 kg
[2018-11-26] VITALS (8 sets, daily range): BP systolic 128–168; BP diastolic 60–79
[2018-11-26] MEDS ORDERED: diphenhydrAMINE 25MG PO PRIOR TO INFUSION PO ONE (09:15)
[2018-11-26] MEDS ORDERED: FILTER 1.2 MICRON (ADULT TPN/MANNITOL/REMICADE) XX ONE (09:15)
[2018-11-26] MEDS ORDERED: ACETAMINOPHEN 650MG PO PRIOR TO INFUSION PO ONE (09:15)
[2018-11-26] MEDS ORDERED: NS 1,000 ML IV SCH (09:15)
[2018-11-26] MEDS ORDERED: inFLIXimab INJECTION 700 MG in NS 180 ML IV ONE (09:15)
== END 2018-11-26 12:15 | disposition home or self-care (01) ==
LOC: M INFU 08:50
PROVIDERS: ATTEND Internal Medicine Gastroenterology
DX: K50.00 Crohn's disease of small intestine without complications (principal); Z79.899 Other long term (current) drug therapy; Z88.1 Allergy status to other antibiotic agents; Z88.3 Allergy status to other anti-infective agents; Z88.8 Allergy status to other drugs, medicaments and biological substances; Z91.041 Radiographic dye allergy status
CPT/HCPCS: 96413; 96415; J1745

== ENCOUNTER → 2018-12-20 | Outpatient (CLI) | payer MEDICARE, OTHER ==
[2018-12-20 18:37] LABS: CHOLESTEROL RISK RATIO 1.654 (<5); IMMUNOGLOBULIN E 11.4 IU/ML (<100)
== END ==
LOC: M SMT 13:39
PROVIDERS: ATTEND Otolaryngology
DX: J30.89 Other allergic rhinitis (principal); Z79.899 Other long term (current) drug therapy

== ENCOUNTER 2018-12-24 08:48 | Outpatient (CLI) | payer MEDICARE, OTHER ==
[~2018-12-24] VITALS: Ht 134.6 cm; Wt 62.0 kg
[2018-12-24] VITALS (9 sets, daily range): BP systolic 124–164; BP diastolic 68–86
[2018-12-24] MEDS ORDERED: ACETAMINOPHEN 650MG PO PRIOR TO INFUSION PO ONE (09:00)
[2018-12-24] MEDS ORDERED: NS 1,000 ML IV SCH (09:00)
[2018-12-24] MEDS ORDERED: FILTER 1.2 MICRON (ADULT TPN/MANNITOL/REMICADE) XX ONE (09:00)
[2018-12-24] MEDS ORDERED: diphenhydrAMINE 25MG PO PRIOR TO INFUSION PO ONE (09:00)
[2018-12-24] MEDS ORDERED: inFLIXimab INJECTION 700 MG in NS 180 ML IV ONE (09:00)
== END 2018-12-24 12:45 | disposition home or self-care (01) ==
LOC: M INFU 08:48
PROVIDERS: ATTEND Internal Medicine Gastroenterology
DX: K50.80 Crohn's disease of both small and large intestine without complications (principal); Z79.899 Other long term (current) drug therapy; Z88.1 Allergy status to other antibiotic agents; Z88.3 Allergy status to other anti-infective agents; Z88.8 Allergy status to other drugs, medicaments and biological substances; Z91.041 Radiographic dye allergy status
CPT/HCPCS: 96413; 96415; J1745

== ENCOUNTER → 2019-01-08 | Outpatient (CLI) | payer MEDICARE, OTHER ==
[~2019-01-08] MED LIST changes: -VICO5TAB16 PO; +VICO5TAB17 PO
[2019-01-08 17:57] LABS: BASO % 0.2 % (0.0-1.0); EOS # 0.1 10^3/uL (0.0-0.50); HEMATOCRIT 35.5 % (36.0-47.0); HEMOGLOBIN 11.4 g/dl (12.0-15.5); LYMPH # 2.1 10^3/uL (1.5-4.5); LYMPH % 40.5 % (24.0-44.0); MEAN CORPUSCULAR HEMOGLOBIN 33.3 pg (27.0-33.0); MEAN CORPUSCULAR HGB CONC 32.1 g/dl (32.0-36.5); MEAN CORPUSCULAR VOLUME 103.8 fl (80.0-96.0); MONO # 0.5 10^3/uL (0.0-0.8); MONO % 9.3 % (0.0-5.0); NEUTROPHILS # 2.5 10^3/uL (1.8-7.7); NEUTROPHILS % 48.8 % (36.0-66.0); PLATELET COUNT, AUTOMATED 315 10^3/uL (150-450); RED BLOOD COUNT 3.42 10^6/uL (4.00-5.40); WHITE BLOOD COUNT 5.2 10^3/uL (4.0-10.0)
[2019-01-08 18:45] LABS: FREE T4 0.78 NG/DL (0.76-1.46); THYROID STIMULATING HORMONE 1.53 uIU/ML (0.358-3.740)
== END ==
LOC: M SMT 15:10
PROVIDERS: ATTEND Family Medicine
DX: R63.4 Abnormal weight loss (principal)

== ENCOUNTER 2019-01-28 09:20 | Outpatient (CLI) | payer MEDICARE, OTHER ==
[~2019-01-28] VITALS: Ht 139.7 cm; Wt 62.0 kg
[2019-01-28] MEDS ORDERED: FILTER 1.2 MICRON (ADULT TPN/MANNITOL/REMICADE) XX ONE (09:45)
[2019-01-28] MEDS ORDERED: NS 1,000 ML IV SCH (09:45)
[2019-01-28 10:05] VITALS: BP 159/73
[2019-01-28] MEDS ORDERED: diphenhydrAMINE 25MG PO PRIOR TO INFUSION PO ONE (10:30)
[2019-01-28] MEDS ORDERED: ACETAMINOPHEN 650MG PO PRIOR TO INFUSION PO ONE (10:30)
[2019-01-28] MEDS ORDERED: inFLIXimab INJECTION 700 MG in NS 180 ML IV ONE (11:00)
[2019-01-28 12:30] VITALS: BP 124/68
== END 2019-01-28 12:50 | disposition home or self-care (01) ==
LOC: M INFU 09:20
PROVIDERS: ATTEND Internal Medicine Gastroenterology
DX: K50.00 Crohn's disease of small intestine without complications (principal)
CPT/HCPCS: 96413; 96415; J1745

== ENCOUNTER 2019-02-25 08:30 | Outpatient (CLI) | payer MEDICARE, OTHER ==
[~2019-02-25] VITALS: Ht 149.9 cm; Wt 62.0 kg
[2019-02-25 08:40] VITALS: BP 148/68
[2019-02-25] MEDS ORDERED: diphenhydrAMINE 25MG PO PRIOR TO INFUSION PO ONE (09:00)
[2019-02-25] MEDS ORDERED: ACETAMINOPHEN 650MG PO PRIOR TO INFUSION PO ONE (09:00)
[2019-02-25] MEDS ORDERED: NS 1,000 ML IV SCH (09:00)
[2019-02-25] MEDS ORDERED: FILTER 1.2 MICRON (ADULT TPN/MANNITOL/REMICADE) XX ONE (09:00)
[2019-02-25] MEDS ORDERED: inFLIXimab INJECTION 700 MG in NS 180 ML IV ONE (09:00)
== END 2019-02-25 11:20 | disposition home or self-care (01) ==
LOC: M INFU 08:30
PROVIDERS: ATTEND Internal Medicine Gastroenterology
DX: K50.90 Crohn's disease, unspecified, without complications (principal); Z79.899 Other long term (current) drug therapy; Z88.2 Allergy status to sulfonamides; Z88.3 Allergy status to other anti-infective agents; Z88.8 Allergy status to other drugs, medicaments and biological substances; Z91.041 Radiographic dye allergy status
CPT/HCPCS: 96413; 96415; J1745

== ENCOUNTER 2019-03-25 09:00 | Outpatient (CLI) | payer MEDICARE, OTHER ==
[~2019-03-25] VITALS: Ht 142.2 cm; Wt 62.0 kg
[2019-03-25 09:12] VITALS: BP 132/86
[2019-03-25] MEDS: NS 1,000 ML IV SCH ×2 (09:30→10:43)
[2019-03-25] MEDS: inFLIXimab INJECTION 700 MG in NS 180 ML IV ONE ×2 (09:45→10:41)
[2019-03-25] MEDS ORDERED: FILTER 1.2 MICRON (ADULT TPN/MANNITOL/REMICADE) XX ONE (10:00)
[2019-03-25] MEDS ORDERED: diphenhydrAMINE 25MG PO PRIOR TO INFUSION PO ONE (10:00)
[2019-03-25] MEDS ORDERED: ACETAMINOPHEN 650MG PO PRIOR TO INFUSION PO ONE (10:00)
[2019-03-25 12:26] VITALS: BP 131/70
== END 2019-03-25 12:30 | disposition home or self-care (01) ==
LOC: M INFU 09:00
PROVIDERS: ATTEND Internal Medicine Gastroenterology
DX: K50.00 Crohn's disease of small intestine without complications (principal); Z91.041 Radiographic dye allergy status; Z88.1 Allergy status to other antibiotic agents; Z88.2 Allergy status to sulfonamides; Z88.4 Allergy status to anesthetic agent; Z88.8 Allergy status to other drugs, medicaments and biological substances
CPT/HCPCS: 96413; 96415; J1745

== ENCOUNTER → 2019-04-16 | Outpatient (REF) | payer MEDICARE, OTHER ==
[2019-04-16 14:10] LABS: CHOLESTEROL RISK RATIO 1.644 (<5); FREE T4 0.77 NG/DL (0.76-1.46); THYROID STIMULATING HORMONE 2.38 uIU/ML (0.358-3.740)
== END ==
LOC: M LABSMT 13:03
PROVIDERS: ATTEND Physician Assistant
DX: R63.4 Abnormal weight loss (principal); E78.2 Mixed hyperlipidemia

== ENCOUNTER 2019-04-22 08:47 | Outpatient (CLI) | payer MEDICARE, OTHER ==
[~2019-04-22] VITALS: Ht 142.2 cm; Wt 62.0 kg
[2019-04-22 08:45] VITALS: BP 143/75
[2019-04-22] MEDS ORDERED: FILTER 1.2 MICRON (ADULT TPN/MANNITOL/REMICADE) XX ONE (09:30)
[2019-04-22] MEDS ORDERED: ACETAMINOPHEN 650MG PO PRIOR TO INFUSION PO ONE (09:30)
[2019-04-22] MEDS ORDERED: diphenhydrAMINE 25MG PO PRIOR TO INFUSION PO ONE (09:30)
[2019-04-22] MEDS ORDERED: NS 1,000 ML IV SCH (09:30)
[2019-04-22] MEDS ORDERED: inFLIXimab INJECTION 700 MG in NS 180 ML IV ONE (10:00)
[2019-04-22 12:19] VITALS: BP 139/62
== END 2019-04-22 12:15 | disposition home or self-care (01) ==
LOC: M INFU 08:47
PROVIDERS: ATTEND Internal Medicine Gastroenterology
DX: K50.00 Crohn's disease of small intestine without complications (principal); Z88.1 Allergy status to other antibiotic agents; Z88.2 Allergy status to sulfonamides; Z88.6 Allergy status to analgesic agent; Z88.8 Allergy status to other drugs, medicaments and biological substances; Z91.041 Radiographic dye allergy status
CPT/HCPCS: 96413; 96415; J1745

== ENCOUNTER 2019-05-20 08:55 | Outpatient (CLI) | payer MEDICARE, OTHER ==
[2019-05-20] VITALS (8 sets, daily range): BP systolic 130–149; BP diastolic 60–83
[~2019-05-20] VITALS: Ht 142.2 cm; Wt 53.3 kg
[2019-05-20] MEDS: diphenhydrAMINE 25MG PO PRIOR TO INFUSION PO ONE (09:33)
[2019-05-20] MEDS: ACETAMINOPHEN 650MG PO PRIOR TO INFUSION PO ONE (09:33)
[2019-05-20] MEDS: FILTER 1.2 MICRON (ADULT TPN/MANNITOL/REMICADE) XX ONE (09:34)
[2019-05-20] MEDS: NS 1,000 ML IV SCH (09:34)
[2019-05-20] MEDS: inFLIXimab INJECTION 700 MG in NS 180 ML IV ONE (09:52)
[2019-05-20] MEDS ORDERED: AZAT50TA2 PO (12:14)
[2019-05-20] MEDS ORDERED: B-12100T2 PO (12:15)
[2019-05-20] MEDS ORDERED: FLON1SPR NARES (12:16)
== END 2019-05-20 12:10 | disposition home or self-care (01) ==
LOC: M INFU 08:55
PROVIDERS: ATTEND Internal Medicine Gastroenterology
DX: K50.00 Crohn's disease of small intestine without complications (principal); Z79.899 Other long term (current) drug therapy; Z91.041 Radiographic dye allergy status; Z88.2 Allergy status to sulfonamides; Z88.3 Allergy status to other anti-infective agents; Z88.8 Allergy status to other drugs, medicaments and biological substances
CPT/HCPCS: 96413; 96415; J1745

== ENCOUNTER 2019-06-17 08:56 | Outpatient (CLI) | payer MEDICARE, OTHER ==
[~2019-06-17] VITALS: Ht 142.2 cm; Wt 62.0 kg
[~2019-06-17 08:56] MED LIST changes: +AZAT50TA2 PO; +B-12100T2 PO; +FLON1SPR NARES
[2019-06-17 09:00] VITALS: BP 140/60
[2019-06-17] MEDS ORDERED: inFLIXimab INJECTION 700 MG in NS 180 ML IV ONE (09:30)
[2019-06-17] MEDS ORDERED: NS 1,000 ML IV SCH (09:30)
[2019-06-17] MEDS ORDERED: ACETAMINOPHEN 650MG PO PRIOR TO INFUSION PO ONE (09:30)
[2019-06-17] MEDS ORDERED: diphenhydrAMINE 25MG PO PRIOR TO INFUSION PO ONE (09:30)
[2019-06-17] MEDS ORDERED: FILTER 1.2 MICRON (ADULT TPN/MANNITOL/REMICADE) XX ONE (09:30)
[2019-06-17 12:40] VITALS: BP 142/66
== END 2019-06-17 12:40 | disposition home or self-care (01) ==
LOC: M INFU 08:56
PROVIDERS: ATTEND Internal Medicine Gastroenterology
DX: K50.00 Crohn's disease of small intestine without complications (principal); Z91.041 Radiographic dye allergy status; Z88.8 Allergy status to other drugs, medicaments and biological substances; Z88.2 Allergy status to sulfonamides; Z88.3 Allergy status to other anti-infective agents
CPT/HCPCS: 96413; 96415; J1745

== ENCOUNTER 2019-07-15 08:57 | Outpatient (CLI) | payer MEDICARE, OTHER ==
[~2019-07-15] VITALS: Ht 142.2 cm; Wt 62.0 kg
[2019-07-15 09:00] VITALS: BP 115/71
[2019-07-15] MEDS ORDERED: FILTER 1.2 MICRON (ADULT TPN/MANNITOL/REMICADE) XX ONE (09:15)
[2019-07-15] MEDS ORDERED: diphenhydrAMINE 25MG PO PRIOR TO INFUSION PO ONE (09:15)
[2019-07-15] MEDS ORDERED: ACETAMINOPHEN 650MG PO PRIOR TO INFUSION PO ONE (09:15)
[2019-07-15] MEDS ORDERED: NS 1,000 ML IV SCH (09:15)
[2019-07-15] MEDS ORDERED: inFLIXimab INJECTION 700 MG in NS 180 ML IV ONE (09:15)
[2019-07-15] MEDS ORDERED: VALA500T5 PO (11:35)
[2019-07-15 11:45] VITALS: BP 156/67
== END 2019-07-15 11:45 | disposition home or self-care (01) ==
LOC: M INFU 08:57
PROVIDERS: ATTEND Internal Medicine Gastroenterology
DX: K50.00 Crohn's disease of small intestine without complications (principal); Z88.2 Allergy status to sulfonamides; Z88.3 Allergy status to other anti-infective agents; Z88.8 Allergy status to other drugs, medicaments and biological substances; Z91.041 Radiographic dye allergy status
CPT/HCPCS: 96413; 96415; J1745

== ENCOUNTER 2019-08-14 08:58 | Outpatient (CLI) | payer MEDICARE, OTHER ==
[~2019-08-14] VITALS: Ht 142.2 cm; Wt 62.0 kg
[~2019-08-14 08:58] MED LIST changes: +VALA500T5 PO
[2019-08-14 09:00] VITALS: BP 120/58
[2019-08-14] MEDS ORDERED: inFLIXimab INJECTION 700 MG in NS 180 ML IV ONE (09:30)
[2019-08-14] MEDS ORDERED: NS 1,000 ML IV SCH (09:30)
[2019-08-14] MEDS ORDERED: diphenhydrAMINE 25MG PO PRIOR TO INFUSION PO ONE (09:30)
[2019-08-14] MEDS ORDERED: ACETAMINOPHEN 650MG PO PRIOR TO INFUSION PO ONE (09:30)
[2019-08-14] MEDS ORDERED: FILTER 1.2 MICRON (ADULT TPN/MANNITOL/REMICADE) XX ONE (09:30)
[2019-08-14 11:05] VITALS: BP 134/80
== END 2019-08-14 11:05 | disposition home or self-care (01) ==
LOC: M INFU 08:58
PROVIDERS: ATTEND Internal Medicine Gastroenterology
DX: K50.00 Crohn's disease of small intestine without complications (principal); Z88.2 Allergy status to sulfonamides; Z88.6 Allergy status to analgesic agent; Z88.8 Allergy status to other drugs, medicaments and biological substances; Z91.041 Radiographic dye allergy status
CPT/HCPCS: 96413; J1745

== ENCOUNTER → 2019-08-26 | Outpatient (CLI) | payer MEDICARE, OTHER ==
[2019-08-26 14:08] LABS: BASO % 0.3 % (0.0-1.0); EOS # 0.1 10^3/uL (0.0-0.5); EOS % 2.8 % (0.0-3.0); HEMATOCRIT 35.6 % (36.0-47.0); HEMOGLOBIN 11.3 g/dl (12.0-15.5); LYMPH # 1.4 10^3/uL (1.5-5.0); LYMPH % 45.6 % (24.0-44.0); MEAN CORPUSCULAR HEMOGLOBIN 33.1 pg (27.0-33.0); MEAN CORPUSCULAR HGB CONC 31.7 g/dl (32.0-36.5); MEAN CORPUSCULAR VOLUME 104.4 fl (80.0-96.0); MONO # 0.2 10^3/uL (0.0-0.8); NEUTROPHILS # 1.4 10^3/uL (1.5-8.5); PLATELET COUNT, AUTOMATED 313 10^3/uL (150-450); RED BLOOD COUNT 3.41 10^6/uL (4.00-5.40); WHITE BLOOD COUNT 3.2 10^3/uL (4.0-10.0)
[2019-08-26 14:25] LABS: ALBUMIN 3.7 GM/DL (3.2-5.2); ALT/SGPT 65 U/L (12-78); BILIRUBIN,TOTAL 0.4 MG/DL (0.2-1.0); BLOOD UREA NITROGEN 18 MG/DL (7-18); CARBON DIOXIDE LEVEL 29 MEQ/L (21-32); CHLORIDE LEVEL 104 MEQ/L (98-107); CHOLESTEROL LEVEL 130 MG/DL (<200); CHOLESTEROL RISK RATIO 1.585 (<5); FREE T4 0.89 NG/DL (0.76-1.46); GLOMERULAR FILTRATION RATE > 60.0 (>45); GLUCOSE, FASTING 81 MG/DL (70-100); HDL CHOLESTEROL 82 MG/DL (>40); LDL CHOLESTEROL 32 MG/DL (<100); NON-HDL-C 48 MG/DL; POTASSIUM SERUM 4.6 MEQ/L (3.5-5.1); SODIUM LEVEL 140 MEQ/L (136-145); TOTAL PROTEIN 7.2 GM/DL (6.4-8.2); TRIGLYCERIDES LEVEL 80 MG/DL (<150)
== END ==
LOC: M PLALAB 11:31
PROVIDERS: ATTEND Family Medicine
DX: E78.2 Mixed hyperlipidemia (principal); K50.00 Crohn's disease of small intestine without complications

== ENCOUNTER 2019-09-11 08:59 | Outpatient (CLI) | payer MEDICARE, OTHER ==
[~2019-09-11] VITALS: Ht 142.2 cm; Wt 62.0 kg
[2019-09-11 09:05] VITALS: BP 136/87
[2019-09-11] MEDS ORDERED: ACETAMINOPHEN 650MG PO PRIOR TO INFUSION PO ONE (10:00)
[2019-09-11] MEDS ORDERED: diphenhydrAMINE 25MG PO PRIOR TO INFUSION PO ONE (10:00)
[2019-09-11] MEDS ORDERED: inFLIXimab INJECTION 700 MG in NS 180 ML IV ONE (10:00)
[2019-09-11] MEDS ORDERED: NS 1,000 ML IV SCH (10:00)
== END 2019-09-11 11:00 | disposition home or self-care (01) ==
LOC: M INFU 08:59
PROVIDERS: ATTEND Internal Medicine Gastroenterology
DX: K50.00 Crohn's disease of small intestine without complications (principal); Z88.2 Allergy status to sulfonamides; Z88.6 Allergy status to analgesic agent; Z88.8 Allergy status to other drugs, medicaments and biological substances; Z91.041 Radiographic dye allergy status
CPT/HCPCS: 96413; J1745

== ENCOUNTER 2019-10-09 08:53 | Outpatient (CLI) | payer MEDICARE, OTHER ==
[~2019-10-09] VITALS: Ht 142.2 cm; Wt 62.0 kg
[2019-10-09 09:00] VITALS: BP 122/75
[2019-10-09] MEDS ORDERED: ACETAMINOPHEN 650MG PO PRIOR TO INFUSION PO ONE (10:00)
[2019-10-09] MEDS ORDERED: NS 1,000 ML IV SCH (10:00)
[2019-10-09] MEDS ORDERED: diphenhydrAMINE 25MG PO PRIOR TO INFUSION PO ONE (10:00)
[2019-10-09] MEDS ORDERED: inFLIXimab INJECTION 700 MG in NS 180 ML IV ONE (10:00)
[2019-10-09 12:30] VITALS: BP 119/69
== END 2019-10-09 12:30 | disposition home or self-care (01) ==
LOC: M INFU 08:53
PROVIDERS: ATTEND Internal Medicine Gastroenterology
DX: K50.00 Crohn's disease of small intestine without complications (principal); Z88.1 Allergy status to other antibiotic agents; Z88.2 Allergy status to sulfonamides; Z88.3 Allergy status to other anti-infective agents; Z91.041 Radiographic dye allergy status
CPT/HCPCS: 96413; 96415; J1745

== ENCOUNTER 2019-11-13 09:44 | Outpatient (CLI) | payer MEDICARE, OTHER ==
[~2019-11-13] VITALS: Ht 167.6 cm; Wt 51.0 kg
[2019-11-13] MEDS ORDERED: inFLIXimab INJECTION 600 MG in NS 190 ML IV ONE (11:00)
[2019-11-13] MEDS ORDERED: ACETAMINOPHEN 650MG PO PRIOR TO INFUSION PO ONE (11:00)
[2019-11-13] MEDS ORDERED: NS 1,000 ML IV SCH (11:00)
[2019-11-13] MEDS ORDERED: diphenhydrAMINE 25MG PO PRIOR TO INFUSION PO ONE (11:00)
[2019-11-13 11:50] VITALS: BP 133/64
== END 2019-11-13 12:00 | disposition home or self-care (01) ==
LOC: M INFU 09:44
PROVIDERS: ATTEND Internal Medicine Gastroenterology
DX: K50.00 Crohn's disease of small intestine without complications (principal); Z88.2 Allergy status to sulfonamides; Z88.6 Allergy status to analgesic agent; Z91.041 Radiographic dye allergy status
CPT/HCPCS: 96413; J1745

== ENCOUNTER 2019-12-11 09:25 | Outpatient (CLI) | payer MEDICARE, OTHER ==
[~2019-12-11] VITALS: Ht 142.2 cm; Wt 51.0 kg
[2019-12-11] MEDS ORDERED: inFLIXimab INJECTION 600 MG in NS 190 ML IV ONE (10:00)
[2019-12-11] MEDS ORDERED: diphenhydrAMINE 25MG PO PRIOR TO INFUSION PO ONE (10:00)
[2019-12-11] MEDS ORDERED: ACETAMINOPHEN 650MG PO PRIOR TO INFUSION PO ONE (10:00)
[2019-12-11] MEDS ORDERED: NS 1,000 ML IV SCH (10:00)
[2019-12-11 11:40] VITALS: BP 147/68
== END 2019-12-11 11:40 | disposition home or self-care (01) ==
LOC: M INFU 09:25
PROVIDERS: ATTEND Internal Medicine Gastroenterology
DX: K50.00 Crohn's disease of small intestine without complications (principal); Z88.6 Allergy status to analgesic agent; Z91.041 Radiographic dye allergy status; Z88.8 Allergy status to other drugs, medicaments and biological substances
CPT/HCPCS: 96413; J1745

== ENCOUNTER 2020-01-08 08:56 | Outpatient (CLI) | payer MEDICARE, OTHER ==
[~2020-01-08] VITALS: Ht 142.2 cm; Wt 51.0 kg
[2020-01-08 09:00] VITALS: BP 133/78
[2020-01-08] MEDS ORDERED: inFLIXimab INJECTION 600 MG in NS 190 ML IV ONE (09:30)
[2020-01-08] MEDS ORDERED: NS 1,000 ML IV SCH (09:30)
[2020-01-08] MEDS ORDERED: diphenhydrAMINE 25MG PO PRIOR TO INFUSION PO ONE (09:30)
[2020-01-08] MEDS ORDERED: ACETAMINOPHEN 650MG PO PRIOR TO INFUSION PO ONE (09:30)
[2020-01-08 11:00] VITALS: BP 124/72
== END 2020-01-08 11:00 | disposition home or self-care (01) ==
LOC: M INFU 08:56
PROVIDERS: ATTEND Internal Medicine Gastroenterology
DX: K50.90 Crohn's disease, unspecified, without complications (principal); Z88.2 Allergy status to sulfonamides; Z88.6 Allergy status to analgesic agent; Z88.8 Allergy status to other drugs, medicaments and biological substances; Z91.041 Radiographic dye allergy status
CPT/HCPCS: 96413; J1745

== ENCOUNTER → 2020-01-22 | Outpatient (CLI) | payer MEDICARE, OTHER ==
[2020-01-22 12:24] LABS: BASO % 0.3 % (0.0-1.0); EOS % 1.2 % (0.0-3.0); HEMATOCRIT 35.1 % (36.0-47.0); HEMOGLOBIN 11.4 g/dl (12.0-15.5); LYMPH % 46.9 % (24.0-44.0); MEAN CORPUSCULAR HEMOGLOBIN 34.1 pg (27.0-33.0); MEAN CORPUSCULAR HGB CONC 32.5 g/dl (32.0-36.5); MEAN CORPUSCULAR VOLUME 105.1 fl (80.0-96.0); MONO % 7.7 % (0.0-5.0); NEUTROPHILS % 43.6 % (36.0-66.0); PLATELET COUNT, AUTOMATED 262 10^3/uL (150-450); RED BLOOD COUNT 3.34 10^6/uL (4.00-5.40); WHITE BLOOD COUNT 3.4 10^3/uL (4.0-10.0)
[2020-01-22 12:25] LABS: LYMPH # 1.6 10^3/uL (1.5-5.0); MONO # 0.3 10^3/uL (0.0-0.8); NEUTROPHILS # 1.5 10^3/uL (1.5-8.5)
[2020-01-22 13:02] LABS: ALBUMIN 3.4 GM/DL (3.2-5.2); ALT/SGPT 66 U/L (12-78); BILIRUBIN,TOTAL 0.3 MG/DL (0.2-1.0); BLOOD UREA NITROGEN 17 MG/DL (7-18); CALCIUM LEVEL 8.5 MG/DL (8.8-10.2); CARBON DIOXIDE LEVEL 28 MEQ/L (21-32); CHLORIDE LEVEL 106 MEQ/L (98-107); CHOLESTEROL LEVEL 126 MG/DL (<200); CHOLESTEROL RISK RATIO 1.536 (<5); CREATININE FOR GFR 0.66 MG/DL (0.55-1.30); FREE T4 0.84 NG/DL (0.76-1.46); GLOMERULAR FILTRATION RATE > 60.0 (>45); GLUCOSE, FASTING 90 MG/DL (70-100); HDL CHOLESTEROL 82 MG/DL (>40); LDL CHOLESTEROL 33 MG/DL (<100); NON-HDL-C 44 MG/DL; POTASSIUM SERUM 4.5 MEQ/L (3.5-5.1); SODIUM LEVEL 141 MEQ/L (136-145); TRIGLYCERIDES LEVEL 54 MG/DL (<150)
[2020-01-22 13:06] LABS: TOTAL 25(OH) VITAMIN D 91.6 NG/ML (30.0-100.0)
[2020-01-22 13:07] LABS: FOLATE 12.9 NG/ML; VITAMIN B12 LEVEL > 2000 PG/ML
== END ==
LOC: M PLALAB 10:03
PROVIDERS: ATTEND Family Medicine
DX: D51.9 Vitamin B12 deficiency anemia, unspecified (principal); K50.00 Crohn's disease of small intestine without complications; E78.2 Mixed hyperlipidemia

== ENCOUNTER 2020-02-05 09:21 | Outpatient (CLI) | payer MEDICARE, OTHER ==
[~2020-02-05] VITALS: Ht 144.8 cm; Wt 51.0 kg
[2020-02-05 09:25] VITALS: BP 120/82
[2020-02-05] MEDS ORDERED: ACETAMINOPHEN 650MG PO PRIOR TO INFUSION PO ONE (09:30)
[2020-02-05] MEDS ORDERED: diphenhydrAMINE 25MG PO PRIOR TO INFUSION PO ONE (09:30)
[2020-02-05] MEDS ORDERED: NS 1,000 ML IV SCH (09:30)
[2020-02-05] MEDS ORDERED: inFLIXimab INJECTION 600 MG in NS 190 ML IV ONE (09:30)
[2020-02-05 10:00] VITALS: BP 120/82
[2020-02-05 10:15] VITALS: BP 137/63
[2020-02-05 11:15] VITALS: BP 133/60
== END 2020-02-05 11:15 | disposition home or self-care (01) ==
LOC: M INFU 09:21
PROVIDERS: ATTEND Internal Medicine Gastroenterology
DX: K50.90 Crohn's disease, unspecified, without complications (principal); Z88.2 Allergy status to sulfonamides; Z88.8 Allergy status to other drugs, medicaments and biological substances; Z88.4 Allergy status to anesthetic agent; Z91.041 Radiographic dye allergy status
CPT/HCPCS: 96413; J1745

== ENCOUNTER 2020-03-04 08:57 | Outpatient (CLI) | payer MEDICARE, OTHER ==
[~2020-03-04] VITALS: Ht 167.6 cm; Wt 51.0 kg
[2020-03-04] MEDS ORDERED: NS 1,000 ML IV SCH (09:15)
[2020-03-04] MEDS ORDERED: diphenhydrAMINE 25MG PO PRIOR TO INFUSION PO ONE (09:15)
[2020-03-04] MEDS ORDERED: ACETAMINOPHEN 650MG PO PRIOR TO INFUSION PO ONE (09:15)
[2020-03-04] MEDS ORDERED: inFLIXimab INJECTION 600 MG in NS 190 ML IV ONE (09:15)
[2020-03-04 09:20] VITALS: BP 145/76
[2020-03-04 09:45] VITALS: BP 153/70
[2020-03-04 10:33] VITALS: BP 130/60
== END 2020-03-04 10:40 | disposition home or self-care (01) ==
LOC: M INFU 08:57
PROVIDERS: ATTEND Internal Medicine Gastroenterology
DX: K50.00 Crohn's disease of small intestine without complications (principal); Z88.2 Allergy status to sulfonamides; Z88.4 Allergy status to anesthetic agent; Z88.8 Allergy status to other drugs, medicaments and biological substances; Z91.041 Radiographic dye allergy status
CPT/HCPCS: 96413; J1745

== ENCOUNTER 2020-04-01 08:55 | Outpatient (CLI) | payer MEDICARE, OTHER ==
[~2020-04-01] VITALS: Ht 142.2 cm; Wt 51.0 kg
[2020-04-01] MEDS ORDERED: diphenhydrAMINE 25MG PO PRIOR TO INFUSION PO ONE (09:15)
[2020-04-01] MEDS ORDERED: NS 1,000 ML IV SCH (09:15)
[2020-04-01] MEDS ORDERED: ACETAMINOPHEN 650MG PO PRIOR TO INFUSION PO ONE (09:15)
[2020-04-01] MEDS ORDERED: inFLIXimab INJECTION 600 MG in NS 190 ML IV ONE (09:15)
[2020-04-01 09:50] VITALS: BP 135/77
[2020-04-01 10:06] VITALS: BP 131/68
[2020-04-01 10:50] VITALS: BP 139/68
== END 2020-04-01 10:50 | disposition home or self-care (01) ==
LOC: M INFU 08:55
PROVIDERS: ATTEND Internal Medicine Gastroenterology
DX: K50.00 Crohn's disease of small intestine without complications (principal); Z88.2 Allergy status to sulfonamides; Z88.6 Allergy status to analgesic agent; Z88.8 Allergy status to other drugs, medicaments and biological substances; Z91.041 Radiographic dye allergy status
CPT/HCPCS: 96413; J1745

== ENCOUNTER 2020-04-29 12:00 | Outpatient (CLI) | payer MEDICARE, OTHER ==
[~2020-04-29 12:00] MED LIST changes: +inFLIXimab 100MG/10ML VIAL (REMICADE) J1745 PER 10MG ONE
[2020-04-29] MEDS ORDERED: ACETAMINOPHEN TAB 650MG DOSE (2X325MG) As Ordered ONE (12:14)
[2020-04-29] MEDS ORDERED: diphenhydrAMINE 25MG CAP As Ordered ONE (12:15)
== END 2020-04-29 13:45 | disposition home or self-care (01) ==
LOC: M INFU 12:00
PROVIDERS: ATTEND Internal Medicine Gastroenterology
DX: K50.00 Crohn's disease of small intestine without complications (principal)
CPT/HCPCS: 96413; J1745

== ENCOUNTER → 2020-05-20 | Outpatient (CLI) | payer MEDICARE, OTHER ==
[~2020-05-20] MED LIST changes: -inFLIXimab 100MG/10ML VIAL (REMICADE) J1745 PER 10MG ONE
[2020-05-20 15:52] LABS: ALBUMIN 3.9 GM/DL (3.2-5.2); ALT/SGPT 56 U/L (12-78); BILIRUBIN,TOTAL 0.4 MG/DL (0.2-1.0); BLOOD UREA NITROGEN 17 MG/DL (7-18); CALCIUM LEVEL 9.2 MG/DL (8.8-10.2); CARBON DIOXIDE LEVEL 32 MEQ/L (21-32); CHLORIDE LEVEL 103 MEQ/L (98-107); CHOLESTEROL LEVEL 190 MG/DL (<200); CHOLESTEROL RISK RATIO 2.209 (<5); CREATININE FOR GFR 0.74 MG/DL (0.55-1.30); GLOMERULAR FILTRATION RATE > 60.0 (>45); GLUCOSE, FASTING 87 MG/DL (70-100); HDL CHOLESTEROL 86 MG/DL (>40); LDL CHOLESTEROL 85 MG/DL (<100); NON-HDL-C 104 MG/DL; POTASSIUM SERUM 4.5 MEQ/L (3.5-5.1); SODIUM LEVEL 138 MEQ/L (136-145); TOTAL PROTEIN 7.7 GM/DL (6.4-8.2); TRIGLYCERIDES LEVEL 93 MG/DL (<150)
== END ==
LOC: M PLALAB 09:26
PROVIDERS: ATTEND Family Medicine
DX: E78.2 Mixed hyperlipidemia (principal)

== ENCOUNTER → 2020-05-25 | Outpatient (CLI) | payer MEDICARE, OTHER ==
--- NOTE | 2020-05-26 16:25 | REPMRS ---
Patient History The patient states she has not had a clinical breast exam in over a year. Family history of prostate cancer at age 81 in maternal grandfather. No Hormone Replacement Therapy Digital Woman Screen Mammo: May 25, 2020 - Exam #: [id number] Bilateral CC and MLO view(s) were taken. Technologist: Rosana Henson, Technologist Prior study comparison: April 17, 2019, bilateral digital mammo screening bilat, performed at [facility]. April 15, 2018, bilateral digital woman screen mammo performed at [facility]. April 02, 2017, digital woman screen mammo performed at [facility]. FINDINGS: The breast tissue is heterogeneously dense. This may lower the sensitivity of mammography. The Volpara volumetric breast density category is: C. There is a moderate amount of heterogeneously dense fibroglandular tissue which is fairly symmetric. There is no interval development of dominant mass, architectural distortion, or grouped microcalcification typical of malignancy. There has been no change in the appearance of the mammogram from the prior studies. 3-D tomosynthesis shows no additional findings. Assessment: BI-RADS/ACR category 1 mammogram. Negative Mammogram. Recommendation Routine screening mammogram of both breasts in 1 year (for women over age 40). This patient's Lifetime Breast Cancer RIsk is estimated at 7.7 %. This mammogram was interpreted with the aid of an FDA-approved computer-aided dectection system. Electronically Signed By: Kyrie Dewey MD 05/26/20 [id number]
== END ==
LOC: M WHC 13:05
PROVIDERS: ATTEND Family Medicine
DX: Z12.31 Encounter for screening mammogram for malignant neoplasm of breast (principal)

== ENCOUNTER 2020-05-27 08:53 | Outpatient (CLI) | payer MEDICARE, OTHER ==
[~2020-05-27] VITALS: Ht 147.3 cm; Wt 51.0 kg
[2020-05-27] MEDS ORDERED: ACETAMINOPHEN 650MG PO PRIOR TO INFUSION PO ONE (09:00)
[2020-05-27] MEDS ORDERED: inFLIXimab INJECTION 600 MG in NS 190 ML IV ONE (09:00)
[2020-05-27] MEDS ORDERED: NS 1,000 ML IV SCH (09:00)
[2020-05-27] MEDS ORDERED: diphenhydrAMINE 25MG PO PRIOR TO INFUSION PO ONE (09:00)
[2020-05-27 09:03] VITALS: BP 128/75
[2020-05-27 09:10] VITALS: BP 128/75
[2020-05-27] MEDS ORDERED: ACETAMINOPHEN TAB 650MG DOSE (2X325MG) As Ordered ONE (09:15)
[2020-05-27] MEDS ORDERED: diphenhydrAMINE 25MG CAP As Ordered ONE (09:16)
[2020-05-27 09:30] VITALS: BP 128/75
[2020-05-27 09:45] VITALS: BP 132/74
[2020-05-27 10:30] VITALS: BP 138/81
[2020-05-27 10:50] VITALS: BP 138/81
== END 2020-05-27 10:50 | disposition home or self-care (01) ==
LOC: M INFU 08:53
PROVIDERS: ATTEND Internal Medicine Gastroenterology
DX: K50.00 Crohn's disease of small intestine without complications (principal)
CPT/HCPCS: 96413; J1745

== ENCOUNTER 2020-06-24 09:47 | Outpatient (CLI) | payer MEDICARE, OTHER ==
[~2020-06-24] VITALS: Ht 142.2 cm; Wt 51.0 kg
[2020-06-24] MEDS ORDERED: ACETAMINOPHEN TAB 650MG DOSE (2X325MG) As Ordered ONE (09:57)
[2020-06-24] MEDS ORDERED: diphenhydrAMINE 25MG CAP As Ordered ONE (09:57)
[2020-06-24 10:00] VITALS: BP 132/63
[2020-06-24] MEDS ORDERED: inFLIXimab INJECTION 600 MG in NS 190 ML IV ONE (10:00)
[2020-06-24] MEDS ORDERED: ACETAMINOPHEN 650MG PO PRIOR TO INFUSION PO ONE (10:00)
[2020-06-24] MEDS ORDERED: diphenhydrAMINE 25MG PO PRIOR TO INFUSION PO ONE (10:00)
[2020-06-24] MEDS ORDERED: NS 1,000 ML IV SCH (10:00)
[2020-06-24 10:25] VITALS: BP 132/63
[2020-06-24 10:40] VITALS: BP 124/59
[2020-06-24 11:30] VITALS: BP 124/59
== END 2020-06-24 11:45 | disposition home or self-care (01) ==
LOC: M INFU 09:47
PROVIDERS: ATTEND Internal Medicine Gastroenterology
DX: K50.00 Crohn's disease of small intestine without complications (principal)
CPT/HCPCS: 96413; J1745

== ENCOUNTER 2020-07-22 08:55 | Outpatient (CLI) | payer MEDICARE, OTHER ==
[~2020-07-22] VITALS: Ht 142.2 cm; Wt 46.8 kg
[2020-07-22] MEDS ORDERED: inFLIXimab INJECTION 600 MG in NS 190 ML IV ONE (09:00)
[2020-07-22] MEDS ORDERED: diphenhydrAMINE 25MG PO PRIOR TO INFUSION PO ONE (09:00)
[2020-07-22] MEDS ORDERED: ACETAMINOPHEN 650MG PO PRIOR TO INFUSION PO ONE (09:00)
[2020-07-22] MEDS ORDERED: NS 1,000 ML IV SCH (09:00)
[2020-07-22 09:10] VITALS: BP 138/65
[2020-07-22 09:35] VITALS: BP 138/65
[2020-07-22 09:48] VITALS: BP 133/63
[2020-07-22 10:39] VITALS: BP 131/67
[2020-07-22 11:00] VITALS: BP 129/72
== END 2020-07-22 11:00 | disposition home or self-care (01) ==
LOC: M INFU 08:55
PROVIDERS: ATTEND Internal Medicine Gastroenterology
DX: K50.00 Crohn's disease of small intestine without complications (principal)
CPT/HCPCS: 96413; J1745

== ENCOUNTER 2020-08-19 08:46 | Outpatient (CLI) | payer MEDICARE, OTHER ==
[~2020-08-19] VITALS: Ht 147.3 cm; Wt 51.0 kg
[2020-08-19 08:55] VITALS: BP 128/76
[2020-08-19 08:56] VITALS: BP 128/76
[2020-08-19] MEDS ORDERED: NS 1,000 ML IV SCH (09:00)
[2020-08-19] MEDS ORDERED: ACETAMINOPHEN 650MG PO PRIOR TO INFUSION PO ONE (09:00)
[2020-08-19] MEDS ORDERED: diphenhydrAMINE 25MG PO PRIOR TO INFUSION PO ONE (09:00)
[2020-08-19] MEDS ORDERED: inFLIXimab INJECTION 600 MG in NS 190 ML IV ONE (09:00)
[2020-08-19 09:41] VITALS: BP 148/66
[2020-08-19 10:32] VITALS: BP 128/64
== END 2020-08-19 10:30 | disposition home or self-care (01) ==
LOC: M INFU 08:46
PROVIDERS: ATTEND Internal Medicine Gastroenterology
DX: K50.00 Crohn's disease of small intestine without complications (principal); Z88.2 Allergy status to sulfonamides; Z88.8 Allergy status to other drugs, medicaments and biological substances; Z91.041 Radiographic dye allergy status
CPT/HCPCS: 96413; J1745

== ENCOUNTER 2020-09-16 08:49 | Outpatient (CLI) | payer MEDICARE, OTHER ==
[2020-09-16] VITALS (7 sets, daily range): BP systolic 128–148; BP diastolic 48–74
[~2020-09-16] VITALS: Ht 172.7 cm; Wt 51.0 kg
[2020-09-16] MEDS ORDERED: diphenhydrAMINE 25MG PO PRIOR TO INFUSION PO ONE (09:00)
[2020-09-16] MEDS ORDERED: inFLIXimab INJECTION 600 MG in NS 190 ML IV ONE (09:00)
[2020-09-16] MEDS ORDERED: NS 1,000 ML IV SCH (09:00)
[2020-09-16] MEDS ORDERED: ACETAMINOPHEN 650MG PO PRIOR TO INFUSION PO ONE (09:00)
== END 2020-09-16 11:35 | disposition home or self-care (01) ==
LOC: M INFU 08:49
PROVIDERS: ATTEND Internal Medicine Gastroenterology
DX: K50.00 Crohn's disease of small intestine without complications (principal); Z88.1 Allergy status to other antibiotic agents; Z88.8 Allergy status to other drugs, medicaments and biological substances; Z91.041 Radiographic dye allergy status; M31.5 Giant cell arteritis with polymyalgia rheumatica
CPT/HCPCS: 36415; 85025; 96365; 96366; J1745

== ENCOUNTER → 2020-09-16 | Outpatient (CLI) | payer MEDICARE, OTHER ==
[2020-09-16 15:52] LABS: BASO % 0.3 % (0.0-1.0); EOS % 0.5 % (0.0-3.0); HEMATOCRIT 34.3 % (36.0-47.0); HEMOGLOBIN 11.3 g/dl (12.0-15.5); LYMPH # 1.8 10^3/uL (1.5-5.0); LYMPH % 48.1 % (24.0-44.0); MEAN CORPUSCULAR HEMOGLOBIN 35.1 pg (27.0-33.0); MEAN CORPUSCULAR HGB CONC 32.9 g/dl (32.0-36.5); MEAN CORPUSCULAR VOLUME 106.5 fl (80.0-96.0); MONO # 0.6 10^3/uL (0.0-0.8); MONO % 14.9 % (0.0-5.0); NEUTROPHILS # 1.3 10^3/uL (1.5-8.5); NEUTROPHILS % 35.9 % (36.0-66.0); PLATELET COUNT, AUTOMATED 231 10^3/uL (150-450); RED BLOOD COUNT 3.22 10^6/uL (4.00-5.40); WHITE BLOOD COUNT 3.7 10^3/uL (4.0-10.0)
== END ==
LOC: M PLALAB 13:27
PROVIDERS: ATTEND Internal Medicine Rheumatology
DX: M31.5 Giant cell arteritis with polymyalgia rheumatica (principal)

== ENCOUNTER → 2020-10-13 | Outpatient (CLI) | payer MEDICARE, OTHER ==
[2020-10-13 16:05] LABS: BASO % 0.5 % (0.0-1.0); EOS # 0.1 10^3/uL (0.0-0.5); EOS % 1.4 % (0.0-3.0); HEMATOCRIT 36.4 % (36.0-47.0); HEMOGLOBIN 11.5 g/dl (12.0-15.5); LYMPH # 1.9 10^3/uL (1.5-5.0); LYMPH % 42.9 % (24.0-44.0); MEAN CORPUSCULAR HEMOGLOBIN 33.4 pg (27.0-33.0); MEAN CORPUSCULAR HGB CONC 31.6 g/dl (32.0-36.5); MEAN CORPUSCULAR VOLUME 105.8 fl (80.0-96.0); MONO # 0.3 10^3/uL (0.0-0.8); MONO % 7.3 % (0.0-5.0); NEUTROPHILS # 2.1 10^3/uL (1.5-8.5); NEUTROPHILS % 47.4 % (36.0-66.0); PLATELET COUNT, AUTOMATED 249 10^3/uL (150-450); RED BLOOD COUNT 3.44 10^6/uL (4.00-5.40); WHITE BLOOD COUNT 4.4 10^3/uL (4.0-10.0)
== END ==
LOC: M PLALAB 13:29
PROVIDERS: ATTEND Internal Medicine Rheumatology
DX: R79.89 Other specified abnormal findings of blood chemistry (principal)

== ENCOUNTER 2020-10-19 10:19 | Outpatient (CLI) | payer MEDICARE, OTHER ==
[~2020-10-19] VITALS: Ht 147.3 cm; Wt 51.0 kg
[~2020-10-19 10:19] MED LIST changes: +ACETAMINOPHEN 650MG PO PRIOR TO INFUSION PO ONE; +NS 1,000 ML IV SCH; +diphenhydrAMINE 25MG PO PRIOR TO INFUSION PO ONE; +inFLIXimab INJECTION 600 MG in NS 190 ML IV ONE
[2020-10-19] MEDS ORDERED: ACETAMINOPHEN 650MG ER TAB (TYLENOL ARTHRITIS) PO ONE (10:30)
[2020-10-19] MEDS ORDERED: NS 1,000 ML IV SCH (10:30)
[2020-10-19] MEDS ORDERED: diphenhydrAMINE 25MG CAP PO ONE (10:30)
[2020-10-19] MEDS ORDERED: inFLIXimab INJECTION 600 MG in NS 190 ML IV ONE (10:30)
[2020-10-19 10:31] VITALS: BP 127/88
[2020-10-19 10:37] VITALS: BP 127/80
[2020-10-19 11:05] VITALS: BP 127/60
[2020-10-19 12:18] VITALS: BP 133/70
== END 2020-10-19 12:20 | disposition home or self-care (01) ==
LOC: M INFU 10:19
PROVIDERS: ATTEND Internal Medicine Gastroenterology
DX: K50.00 Crohn's disease of small intestine without complications (principal); Z88.6 Allergy status to analgesic agent; Z88.8 Allergy status to other drugs, medicaments and biological substances; Z91.041 Radiographic dye allergy status
CPT/HCPCS: 96413; J1745

== ENCOUNTER → 2020-11-10 | Outpatient (CLI) | payer MEDICARE, OTHER ==
[~2020-11-10] MED LIST changes: -ACETAMINOPHEN 650MG PO PRIOR TO INFUSION PO ONE; -NS 1,000 ML IV SCH; -diphenhydrAMINE 25MG PO PRIOR TO INFUSION PO ONE; -inFLIXimab INJECTION 600 MG in NS 190 ML IV ONE
[2020-11-10 13:53] LABS: BASO % 0.7 % (0.0-1.0); EOS # 0.1 10^3/uL (0.0-0.5); EOS % 1.9 % (0.0-3.0); HEMATOCRIT 36.6 % (36.0-47.0); HEMOGLOBIN 12.4 g/dl (12.0-15.5); LYMPH # 2.2 10^3/uL (1.5-5.0); LYMPH % 52.5 % (24.0-44.0); MEAN CORPUSCULAR HEMOGLOBIN 33.9 pg (27.0-33.0); MEAN CORPUSCULAR HGB CONC 33.9 g/dl (32.0-36.5); MONO # 0.6 10^3/uL (0.0-0.8); MONO % 13.5 % (0.0-5.0); NEUTROPHILS # 1.3 10^3/uL (1.5-8.5); NEUTROPHILS % 31.2 % (36.0-66.0); PLATELET COUNT, AUTOMATED 219 10^3/uL (150-450); RED BLOOD COUNT 3.66 10^6/uL (4.00-5.40); WHITE BLOOD COUNT 4.2 10^3/uL (4.0-10.0)
[2020-11-10 14:26] LABS: ALBUMIN 3.8 GM/DL (3.2-5.2); ALT/SGPT 31 U/L (12-78); BILIRUBIN,TOTAL 0.1 MG/DL (0.2-1.0); BLOOD UREA NITROGEN 14 MG/DL (7-18); CALCIUM LEVEL 9.2 MG/DL (8.8-10.2); CARBON DIOXIDE LEVEL 30 MEQ/L (21-32); CHLORIDE LEVEL 102 MEQ/L (98-107); CHOLESTEROL LEVEL 257 MG/DL (<200); CHOLESTEROL RISK RATIO 2.336 (<5); FREE T4 0.73 NG/DL (0.76-1.46); GLOMERULAR FILTRATION RATE > 60.0 (>45); GLUCOSE, FASTING 89 MG/DL (70-100); HDL CHOLESTEROL 110 MG/DL (>40); LDL CHOLESTEROL 124 MG/DL (<100); NON-HDL-C 147 MG/DL; POTASSIUM SERUM 4.7 MEQ/L (3.5-5.1); SODIUM LEVEL 138 MEQ/L (136-145); TOTAL PROTEIN 7.2 GM/DL (6.4-8.2); TRIGLYCERIDES LEVEL 113 MG/DL (<150)
[2020-11-10 14:31] LABS: FOLATE 9.4 NG/ML; VITAMIN B12 LEVEL 1726 PG/ML
== END ==
LOC: M PLALAB 11:30
PROVIDERS: ATTEND Physician Assistant
DX: D51.9 Vitamin B12 deficiency anemia, unspecified (principal); E78.2 Mixed hyperlipidemia

== ENCOUNTER 2020-11-16 08:53 | Outpatient (CLI) | payer MEDICARE, OTHER ==
[2020-11-16] VITALS (7 sets, daily range): BP systolic 115–144; BP diastolic 65–75
[~2020-11-16] VITALS: Ht 147.3 cm; Wt 45.0 kg
[2020-11-16] MEDS ORDERED: diphenhydrAMINE 25MG PO PRIOR TO INFUSION PO ONE (09:00)
[2020-11-16] MEDS ORDERED: inFLIXimab INJECTION 500 MG in NS 200 ML IV ONE (09:00)
[2020-11-16] MEDS ORDERED: NS 1,000 ML IV SCH (09:00)
[2020-11-16] MEDS ORDERED: inFLIXimab INJECTION 600 MG in NS 190 ML IV ONE (09:00)
[2020-11-16] MEDS ORDERED: ACETAMINOPHEN 650MG PO PRIOR TO INFUSION PO ONE (09:00)
== END 2020-11-16 11:40 | disposition home or self-care (01) ==
LOC: M INFU 08:53
PROVIDERS: ATTEND Internal Medicine Gastroenterology
DX: K50.00 Crohn's disease of small intestine without complications (principal); Z88.6 Allergy status to analgesic agent; Z88.8 Allergy status to other drugs, medicaments and biological substances; Z91.041 Radiographic dye allergy status
CPT/HCPCS: 96413; 96415; J1745

== ENCOUNTER 2020-12-16 07:40 | Outpatient (CLI) | payer MEDICARE, OTHER ==
[~2020-12-16] VITALS: Ht 147.3 cm; Wt 45.0 kg
[~2020-12-16 07:40] MED LIST changes: +ACETAMINOPHEN TAB 650MG DOSE (2X325MG) PO ONE; +NS 1,000 ML IV SCH; +diphenhydrAMINE 25MG CAP PO ONE; +inFLIXimab INJECTION 500 MG in NS 200 ML IV ONE
[2020-12-16] MEDS ORDERED: diphenhydrAMINE 25MG CAP PO ONE (08:00)
[2020-12-16] MEDS ORDERED: inFLIXimab INJECTION 500 MG in NS 200 ML IV ONE (08:00)
[2020-12-16] MEDS ORDERED: ACETAMINOPHEN TAB 650MG DOSE (2X325MG) PO ONE (08:00)
[2020-12-16] MEDS ORDERED: NS 1,000 ML IV SCH (08:00)
[2020-12-16 08:50] VITALS: BP 139/72
[2020-12-16 09:05] VITALS: BP 128/61
[2020-12-16 09:20] VITALS: BP 125/64
[2020-12-16 09:35] VITALS: BP 118/62
[2020-12-16 09:50] VITALS: BP 118/62
[2020-12-16 10:20] VITALS: BP 122/64
== END 2020-12-16 11:10 | disposition home or self-care (01) ==
LOC: M INFU 07:40
PROVIDERS: ATTEND Internal Medicine Gastroenterology
DX: K50.00 Crohn's disease of small intestine without complications (principal); Z88.2 Allergy status to sulfonamides; Z88.6 Allergy status to analgesic agent; Z88.8 Allergy status to other drugs, medicaments and biological substances; Z91.041 Radiographic dye allergy status
CPT/HCPCS: 96413; 96415; J1745

== ENCOUNTER 2021-01-13 08:43 | Outpatient (CLI) | payer MEDICARE, OTHER ==
[~2021-01-13] VITALS: Ht 147.3 cm; Wt 45.0 kg
[~2021-01-13 08:43] MED LIST changes: -ACETAMINOPHEN TAB 650MG DOSE (2X325MG) PO ONE; -NS 1,000 ML IV SCH; -diphenhydrAMINE 25MG CAP PO ONE; -inFLIXimab INJECTION 500 MG in NS 200 ML IV ONE
[2021-01-13 08:45] VITALS: BP 137/82
[2021-01-13] MEDS ORDERED: ACETAMINOPHEN 650MG PO PRIOR TO INFUSION PO ONE (09:00)
[2021-01-13] MEDS ORDERED: diphenhydrAMINE 25MG PO PRIOR TO INFUSION PO ONE (09:00)
[2021-01-13] MEDS ORDERED: inFLIXimab INJECTION 500 MG in NS 200 ML IV ONE (09:00)
[2021-01-13] MEDS ORDERED: NS 1,000 ML IV SCH (09:00)
[2021-01-13 09:07] VITALS: BP 137/82
[2021-01-13 09:48] VITALS: BP 131/60
[2021-01-13 10:38] VITALS: BP 122/69
== END 2021-01-13 10:45 | disposition home or self-care (01) ==
LOC: M INFU 08:43
PROVIDERS: ATTEND Internal Medicine Gastroenterology
DX: K50.00 Crohn's disease of small intestine without complications (principal); Z88.6 Allergy status to analgesic agent; Z88.8 Allergy status to other drugs, medicaments and biological substances
CPT/HCPCS: 96413; J1745

== ENCOUNTER 2021-02-10 08:43 | Outpatient (CLI) | payer MEDICARE, OTHER ==
[~2021-02-10] VITALS: Ht 147.3 cm; Wt 45.0 kg
[2021-02-10 08:59] VITALS: BP 144/80
[2021-02-10] MEDS ORDERED: diphenhydrAMINE 25MG PO PRIOR TO INFUSION PO ONE (09:00)
[2021-02-10] MEDS ORDERED: ACETAMINOPHEN 650MG PO PRIOR TO INFUSION PO ONE (09:00)
[2021-02-10] MEDS ORDERED: inFLIXimab INJECTION 500 MG in NS 200 ML IV ONE (09:00)
[2021-02-10] MEDS ORDERED: NS 1,000 ML IV SCH (09:00)
[2021-02-10 09:45] VITALS: BP 131/67
[2021-02-10 10:00] VITALS: BP 123/59
[2021-02-10 10:30] VITALS: BP 127/64
[2021-02-10 11:37] VITALS: BP 145/68
== END 2021-02-10 11:35 | disposition home or self-care (01) ==
LOC: M INFU 08:43
PROVIDERS: ATTEND Internal Medicine Gastroenterology
DX: K50.00 Crohn's disease of small intestine without complications (principal); Z88.6 Allergy status to analgesic agent; Z88.8 Allergy status to other drugs, medicaments and biological substances; Z91.041 Radiographic dye allergy status
CPT/HCPCS: 96365; 96366; J1745

== ENCOUNTER 2021-03-10 11:24 | Outpatient (CLI) | payer MEDICARE, OTHER ==
[2021-03-10] VITALS (7 sets, daily range): BP systolic 114–133; BP diastolic 60–89
[~2021-03-10] VITALS: Ht 147.3 cm; Wt 45.0 kg
[2021-03-10] MEDS ORDERED: ACETAMINOPHEN 650MG PO PRIOR TO INFUSION PO ONE (11:30)
[2021-03-10] MEDS ORDERED: inFLIXimab INJECTION 500 MG in NS 200 ML IV ONE (11:30)
[2021-03-10] MEDS ORDERED: diphenhydrAMINE 25MG PO PRIOR TO INFUSION PO ONE (11:30)
[2021-03-10] MEDS ORDERED: NS 1,000 ML IV SCH (11:30)
== END 2021-03-10 14:35 | disposition home or self-care (01) ==
LOC: M INFU 11:24
PROVIDERS: ATTEND Internal Medicine Gastroenterology
DX: K50.00 Crohn's disease of small intestine without complications (principal)
CPT/HCPCS: 96413; 96415; J1745

== ENCOUNTER → 2021-04-06 | Outpatient (CLI) | payer MEDICARE, OTHER ==
[2021-04-06 17:28] LABS: BASO % 0.6 % (0.0-1.0); EOS # 0.1 10^3/uL (0.0-0.5); EOS % 1.6 % (0.0-3.0); HEMATOCRIT 35.9 % (36.0-47.0); HEMOGLOBIN 11.5 g/dl (12.0-15.5); LYMPH # 1.4 10^3/uL (1.5-5.0); LYMPH % 45.8 % (24.0-44.0); MEAN CORPUSCULAR HEMOGLOBIN 32.4 pg (27.0-33.0); MEAN CORPUSCULAR VOLUME 101.1 fl (80.0-96.0); MONO # 0.4 10^3/uL (0.0-0.8); MONO % 11.2 % (2.0-8.0); NEUTROPHILS # 1.3 10^3/uL (1.5-8.5); NEUTROPHILS % 40.5 % (36.0-66.0); PLATELET COUNT, AUTOMATED 274 10^3/uL (150-450); RED BLOOD COUNT 3.55 10^6/uL (4.00-5.40); WHITE BLOOD COUNT 3.1 10^3/uL (4.0-10.0)
[2021-04-06 17:58] LABS: ALBUMIN 3.7 GM/DL (3.2-5.2); ALT/SGPT 42 U/L (12-78); BLOOD UREA NITROGEN 14 MG/DL (7-18); C REACTIVE PROTEIN QUANTITATIV < 0.30 MG/DL (0.00-0.30); CREATININE FOR GFR 0.62 MG/DL (0.55-1.30); GLOMERULAR FILTRATION RATE > 60.0 (>45)
[2021-04-06 17:59] LABS: ERYTHROCYTE SEDIMENTATION RATE 18 mm/hr (0-30)
== END ==
LOC: M PLALAB 13:09
PROVIDERS: ATTEND Physician Assistant Medical
DX: M05.79 Rheumatoid arthritis with rheumatoid factor of multiple sites without organ or systems involvement (principal); K50.90 Crohn's disease, unspecified, without complications; Z79.899 Other long term (current) drug therapy

== ENCOUNTER 2021-04-07 08:54 | Outpatient (CLI) | payer MEDICARE, OTHER ==
[~2021-04-07] VITALS: Ht 142.2 cm; Wt 45.0 kg
[2021-04-07 09:00] VITALS: BP 154/71
[2021-04-07] MEDS ORDERED: ACETAMINOPHEN 650MG PO PRIOR TO INFUSION PO ONE (09:00)
[2021-04-07] MEDS ORDERED: inFLIXimab INJECTION 500 MG in NS 200 ML IV ONE (09:00)
[2021-04-07] MEDS ORDERED: diphenhydrAMINE 25MG PO PRIOR TO INFUSION PO ONE (09:00)
[2021-04-07] MEDS ORDERED: NS 1,000 ML IV SCH (09:00)
[2021-04-07 09:30] VITALS: BP 154/71
[2021-04-07 09:57] VITALS: BP 117/56
[2021-04-07 11:04] VITALS: BP 145/72
== END 2021-04-07 11:00 | disposition home or self-care (01) ==
LOC: M INFU 08:54
PROVIDERS: ATTEND Internal Medicine Gastroenterology
DX: K50.00 Crohn's disease of small intestine without complications (principal)
CPT/HCPCS: 96413; J1745

== ENCOUNTER → 2021-04-29 | Outpatient (CLI) | payer MEDICARE, OTHER ==
[2021-04-29 16:07] LABS: BASO % 0.4 % (0.0-1.0); EOS % 0.8 % (0.0-3.0); HEMATOCRIT 35.9 % (36.0-47.0); HEMOGLOBIN 11.7 g/dl (12.0-15.5); LYMPH % 42.8 % (24.0-44.0); MEAN CORPUSCULAR HEMOGLOBIN 32.6 pg (27.0-33.0); MEAN CORPUSCULAR HGB CONC 32.6 g/dl (32.0-36.5); MONO # 0.5 10^3/uL (0.0-0.8); NEUTROPHILS # 2.1 10^3/uL (1.5-8.5); NEUTROPHILS % 44.6 % (36.0-66.0); PLATELET COUNT, AUTOMATED 242 10^3/uL (150-450); RED BLOOD COUNT 3.59 10^6/uL (4.00-5.40); WHITE BLOOD COUNT 4.7 10^3/uL (4.0-10.0)
== END ==
LOC: M PLALAB 14:30
PROVIDERS: ATTEND Physician Assistant Medical
DX: R79.89 Other specified abnormal findings of blood chemistry (principal)

== ENCOUNTER 2021-05-10 08:45 | Outpatient (CLI) | payer MEDICARE, OTHER ==
[~2021-05-10] VITALS: Ht 142.2 cm; Wt 45.0 kg
[~2021-05-10 08:45] MED LIST changes: +ACETAMINOPHEN 650MG PO PRIOR TO INFUSION PO ONE; +NS 1,000 ML IV SCH; +diphenhydrAMINE 25MG PO PRIOR TO INFUSION PO ONE; +inFLIXimab INJECTION 500 MG in NS 200 ML IV ONE
[2021-05-10 08:55] VITALS: BP 136/90
[2021-05-10] MEDS ORDERED: diphenhydrAMINE 25MG PO PRIOR TO INFUSION PO ONE (09:00)
[2021-05-10] MEDS ORDERED: ACETAMINOPHEN 650MG PO PRIOR TO INFUSION PO ONE (09:00)
[2021-05-10] MEDS ORDERED: inFLIXimab INJECTION 500 MG in NS 200 ML IV ONE (09:00)
[2021-05-10] MEDS ORDERED: NS 1,000 ML IV SCH (09:00)
[2021-05-10 10:15] VITALS: BP 134/72
[2021-05-10 10:45] VITALS: BP 124/71
[2021-05-10 11:15] VITALS: BP 122/68
[2021-05-10 11:55] VITALS: BP 127/62
== END 2021-05-10 11:55 | disposition home or self-care (01) ==
LOC: M INFU 08:45
PROVIDERS: ATTEND Internal Medicine Gastroenterology
DX: K50.00 Crohn's disease of small intestine without complications (principal); Z88.6 Allergy status to analgesic agent; Z88.8 Allergy status to other drugs, medicaments and biological substances
CPT/HCPCS: 96413; 96415; J1745

== ENCOUNTER → 2021-05-19 | Outpatient (CLI) | payer MEDICARE, OTHER ==
[~2021-05-19] MED LIST changes: -ACETAMINOPHEN 650MG PO PRIOR TO INFUSION PO ONE; -NS 1,000 ML IV SCH; -diphenhydrAMINE 25MG PO PRIOR TO INFUSION PO ONE; -inFLIXimab INJECTION 500 MG in NS 200 ML IV ONE
[2021-05-19 16:22] LABS: BLOOD UREA NITROGEN 14 MG/DL (7-18); CALCIUM LEVEL 9.4 MG/DL (8.8-10.2); CARBON DIOXIDE LEVEL 31 MEQ/L (21-32); CHLORIDE LEVEL 102 MEQ/L (98-107); CHOLESTEROL LEVEL 274 MG/DL (<200); CHOLESTEROL RISK RATIO 2.245 (<5); CREATININE FOR GFR 0.72 MG/DL (0.55-1.30); FERRITIN 39 NG/ML (8-252); GLOMERULAR FILTRATION RATE > 60.0 (>45); GLUCOSE, FASTING 90 MG/DL (70-100); HDL CHOLESTEROL 122 MG/DL (>40); IRON (FE) 116 UG/DL (50-170); LDL CHOLESTEROL 132 MG/DL (<100); NON-HDL-C 152 MG/DL; PERCENT SATURATION 43.4 % (13.2-45.0); SODIUM LEVEL 138 MEQ/L (136-145); TOTAL IRON BINDING CAPACITY 267 UG/DL (250-450); TRIGLYCERIDES LEVEL 100 MG/DL (<150); VITAMIN B12 LEVEL 549 PG/ML
[2021-05-19 16:23] LABS: FOLATE 12.2 NG/ML
== END ==
LOC: M PLALAB 11:52
PROVIDERS: ATTEND Family Medicine
DX: D51.9 Vitamin B12 deficiency anemia, unspecified (principal); E78.2 Mixed hyperlipidemia; M05.70 Rheumatoid arthritis with rheumatoid factor of unspecified site without organ or systems involvement

== ENCOUNTER → 2021-06-08 | Outpatient (CLI) | payer MEDICARE, OTHER ==
--- NOTE | 2021-06-08 11:41 | REPMRS ---
Patient History The patient states she has not had a clinical breast exam in over a year. Patient is postmenopausal and had first child at age 31. Family history of prostate cancer at age 81 in maternal grandfather, breast cancer at age 91 and pancreatic cancer at age 91 in mother. No Hormone Replacement Therapy Patient states no breast complaints today. Patient has signed MRS History Sheet. Digital Woman Screen Mammo: June 08, 2021 - Exam #: [id number] Bilateral CC and MLO view(s) were taken. Technologist: Christelle Alatorre, Technologist Prior study comparison: May 25, 2020, bilateral digital woman screen mammo performed at [facility]. April 17, 2019, bilateral digital mammo screening bilat, performed at [facility]. FINDINGS: The breast tissue is heterogeneously dense. This may lower the sensitivity of mammography. Screening. Digital screening (2D) mammography was performed bilaterally in the CC and MLO projections. Additionally, breast tomosynthesis (3D mammography) was performed bilaterally in the CC and MLO projections. Todays exam was compared to the prior exam/exams. By history, the patient has no complaints of a palpable breast abnormality or other significant breast complaints. The breasts are unchanged in size and shape. Once again, dense heterogenous fibroglandular elements are seen bilaterally in a stable appearing pattern but to such a degree that the sensitivity of the mammogram in detecting cancer is decreased.There are no robert-soft tissue densities or spiculated masses. There is no internal architectural distortion. Once again, stable benign appearing calcifications are seen.There are no suspicious robert-calcific clusters. Skin thickening or nipple retraction is not present. IMPRESSION: BI-RADS Category 2- Benign Findings. There is no evidence of malignant alteration of the breasts. Followup examination recommended in one year. The Volpara volumetric breast density category is C, the breasts are heterogenously dense which may obscure small masses. This mammogram was read with the assistance of [employer],an FDA approved computer aided detection system for mammography. The lifetime Tyrer-Cuzick score is 13.6 % Due to the density of the breasts or Tyrer Cuzick score of 20% or greater, MRI/whole breast screening ultrasound is warranted. Negative x-ray reports should not delay surgical consultation if a dominant or clinically suspicious mass is present. Not all breast cancers can be identified by mammography. Therefore, we recommend that you continue to perform regular breast self-examination and physical examination and then promptly contact your physician of any concerns or changes. Adenosis and dense breasts may obscure an underlying neoplasm. Assessment: BI-RADS/ACR category 2 mammogram. Benign Findings. Recommendation Routine screening mammogram of both breasts in 1 year. Electronically Signed By: Drew Domingo DO 06/08/21 [id number]
--- NOTE | 2021-06-08 13:06 | DEXAMM ---
INDICATION: NURSING HOME USE OF SYSTEMIC STEROIDS, OTHER DISORDER OF BONE. COMPARISON: 04/15/2018 as well as other prior exams. TECHNIQUE: Bone density was measured using dual-energy x-ray absorptiometry (DEXA). FINDINGS: AP SPINE L1-L4 BMD 0.876 g/cm2 Young Adult T-Score -2.6 Age Matched Z-Score -0.9. LT FEMUR, TOTAL BMD 0.952 g/cm2 Young Adult T-Score -0.4 Age Matched Z-Score 0.9. LT NECK BMD 0.848 g/cm2 Young Adult T-Score -1.4 Age Matched Z-Score 0.2. RT FEMUR, TOTAL BMD 0.974 g/cm2 Young Adult T-Score -0.3 Age Matched Z-Score 1.1. RT NECK BMD 0.878 g/cm2 Young Adult T-Score -1.1 Age Matched Z-Score 0.4. IMPRESSION: There is osteoporosis of the spine. There is low bone density of the left hip. There is low bone density of the right hip. The density of the spine has decreased 18.1% since the initial exam on 05/15/2007. The density of the spine decreased 13.4% since most recent exam on 04/15/2018. The density of the left hip has decreased 10.4% since initial exam on 05/15/2007. The density of the left hip has decreased 5.9% since most recent exam on 04/15/2018. The density of the right hip has decreased 9.0% since the initial exam on 05/15/2007. The density of the right hip has decreased 6.6% since the most recent exam on 04/15/2018. FOLLOW-UP: Recommendation for the next bone density exam: 2 years. <Electronically signed by Edi Rivas > 06/08/21 [id number]
== END ==
LOC: M WHC 10:49
PROVIDERS: ATTEND Physician Assistant
DX: Z12.31 Encounter for screening mammogram for malignant neoplasm of breast (principal); Z79.52 Long term (current) use of systemic steroids; M85.80 Other specified disorders of bone density and structure, unspecified site

== ENCOUNTER 2021-06-09 08:17 | Outpatient (CLI) | payer MEDICARE, OTHER ==
[2021-06-09] VITALS (7 sets, daily range): BP systolic 118–152; BP diastolic 57–71
[~2021-06-09] VITALS: Ht 142.2 cm; Wt 45.0 kg
[~2021-06-09 08:17] MED LIST changes: +ACETAMINOPHEN 650MG PO PRIOR TO INFUSION PO ONE; +NS 1,000 ML IV SCH; +diphenhydrAMINE 25MG PO PRIOR TO INFUSION PO ONE; +inFLIXimab INJECTION 500 MG in NS 200 ML IV ONE
== END 2021-06-09 11:20 | disposition home or self-care (01) ==
LOC: M INFU 08:17
PROVIDERS: ATTEND Internal Medicine Gastroenterology
DX: K50.00 Crohn's disease of small intestine without complications (principal); Z88.6 Allergy status to analgesic agent; Z88.8 Allergy status to other drugs, medicaments and biological substances
CPT/HCPCS: 96413; 96415; J1745

== ENCOUNTER → 2021-07-01 | Outpatient (CLI) | payer MEDICARE, OTHER ==
[~2021-07-01] MED LIST changes: -ACETAMINOPHEN 650MG PO PRIOR TO INFUSION PO ONE; -NS 1,000 ML IV SCH; -diphenhydrAMINE 25MG PO PRIOR TO INFUSION PO ONE; -inFLIXimab INJECTION 500 MG in NS 200 ML IV ONE
[2021-07-04 14:08] LABS: G6PD2 3.63 x10E6/uL (3.77-5.28)
== END ==
LOC: M PLALAB 12:00
PROVIDERS: ATTEND Physician Assistant Medical
DX: M05.79 Rheumatoid arthritis with rheumatoid factor of multiple sites without organ or systems involvement (principal); Z79.899 Other long term (current) drug therapy

== ENCOUNTER 2021-07-07 08:57 | Outpatient (CLI) | payer MEDICARE, OTHER ==
[~2021-07-07] VITALS: Ht 139.7 cm; Wt 48.1 kg
[2021-07-07] MEDS ORDERED: inFLIXimab INJECTION 500 MG in NS 200 ML IV ONE (09:00)
[2021-07-07] MEDS ORDERED: NS 1,000 ML IV SCH (09:00)
[2021-07-07] MEDS ORDERED: diphenhydrAMINE 25MG PO PRIOR TO INFUSION PO ONE (09:00)
[2021-07-07] MEDS ORDERED: ACETAMINOPHEN 650MG PO PRIOR TO INFUSION PO ONE (09:00)
[2021-07-07 09:10] VITALS: BP 128/75
[2021-07-07 09:16] VITALS: BP 128/75
[2021-07-07 10:00] VITALS: BP 126/64
[2021-07-07 10:50] VITALS: BP 143/70
== END 2021-07-07 11:00 | disposition home or self-care (01) ==
LOC: M INFU 08:57
PROVIDERS: ATTEND Internal Medicine Gastroenterology
DX: K50.90 Crohn's disease, unspecified, without complications (principal); Z88.8 Allergy status to other drugs, medicaments and biological substances; Z88.6 Allergy status to analgesic agent
CPT/HCPCS: 96413; J1745

== ENCOUNTER 2021-08-04 08:57 | Outpatient (CLI) | payer MEDICARE, OTHER ==
[~2021-08-04] VITALS: Ht 147.3 cm; Wt 48.1 kg
[2021-08-04] VITALS (7 sets, daily range): BP systolic 121–146; BP diastolic 64–84
[~2021-08-04 08:57] MED LIST changes: +ACETAMINOPHEN 650MG PO PRIOR TO INFUSION PO ONE; +NS 1,000 ML IV SCH; +diphenhydrAMINE 25MG PO PRIOR TO INFUSION PO ONE; +inFLIXimab INJECTION 500 MG in NS 200 ML IV ONE
[2021-08-04] MEDS ORDERED: ACETAMINOPHEN 650MG PO PRIOR TO INFUSION PO ONE (09:00)
[2021-08-04] MEDS ORDERED: diphenhydrAMINE 25MG PO PRIOR TO INFUSION PO ONE (09:00)
[2021-08-04] MEDS ORDERED: inFLIXimab INJECTION 500 MG in NS 200 ML IV ONE (09:00)
[2021-08-04] MEDS ORDERED: NS 1,000 ML IV SCH (09:00)
== END 2021-08-04 10:15 | disposition home or self-care (01) ==
LOC: M INFU 08:57
PROVIDERS: ATTEND Internal Medicine Gastroenterology
DX: K50.019 Crohn's disease of small intestine with unspecified complications (principal); Z88.2 Allergy status to sulfonamides; Z88.6 Allergy status to analgesic agent; Z88.8 Allergy status to other drugs, medicaments and biological substances
CPT/HCPCS: 96413; 96415; J1745

== ENCOUNTER 2021-09-01 08:39 | Outpatient (CLI) | payer MEDICARE, OTHER ==
[~2021-09-01] VITALS: Ht 147.3 cm; Wt 48.1 kg
[2021-09-01 08:45] VITALS: BP 140/79
[2021-09-01 09:00] VITALS: BP 140/79
[2021-09-01 09:45] VITALS: BP 148/66
[2021-09-01 10:20] VITALS: BP 146/67
== END 2021-09-01 10:30 | disposition home or self-care (01) ==
LOC: M INFU 08:39
PROVIDERS: ATTEND Internal Medicine Gastroenterology
DX: K50.90 Crohn's disease, unspecified, without complications (principal); Z88.2 Allergy status to sulfonamides; Z88.6 Allergy status to analgesic agent; Z88.8 Allergy status to other drugs, medicaments and biological substances
CPT/HCPCS: 96413; J1745

== ENCOUNTER → 2021-09-19 | Outpatient (CLI) | payer MEDICARE, OTHER ==
[~2021-09-19] MED LIST changes: -ACETAMINOPHEN 650MG PO PRIOR TO INFUSION PO ONE; -NS 1,000 ML IV SCH; -diphenhydrAMINE 25MG PO PRIOR TO INFUSION PO ONE; -inFLIXimab INJECTION 500 MG in NS 200 ML IV ONE
[2021-09-19 15:22] LABS: BASO % 0.3 % (0.0-1.0); EOS # 0.1 10^3/uL (0.0-0.5); EOS % 1.4 % (0.0-3.0); HEMATOCRIT 35.7 % (36.0-47.0); HEMOGLOBIN 11.5 g/dl (12.0-15.5); LYMPH # 1.5 10^3/uL (1.5-5.0); LYMPH % 41.9 % (24.0-44.0); MEAN CORPUSCULAR HEMOGLOBIN 31.9 pg (27.0-33.0); MEAN CORPUSCULAR HGB CONC 32.2 g/dl (32.0-36.5); MEAN CORPUSCULAR VOLUME 99.2 fl (80.0-96.0); MONO # 0.3 10^3/uL (0.0-0.8); MONO % 9.4 % (2.0-8.0); NEUTROPHILS # 1.7 10^3/uL (1.5-8.5); PLATELET COUNT, AUTOMATED 257 10^3/uL (150-450); WHITE BLOOD COUNT 3.6 10^3/uL (4.0-10.0)
[2021-09-19 15:45] LABS: ALBUMIN 3.7 GM/DL (3.2-5.2); ALT/SGPT 30 U/L (12-78); BILIRUBIN,TOTAL 0.3 MG/DL (0.2-1.0); BLOOD UREA NITROGEN 16 MG/DL (7-18); CALCIUM LEVEL 9.2 MG/DL (8.8-10.2); CARBON DIOXIDE LEVEL 31 MEQ/L (21-32); CHLORIDE LEVEL 106 MEQ/L (98-107); CHOLESTEROL LEVEL 217 MG/DL (<200); CHOLESTEROL RISK RATIO 2.106 (<5); CREATININE FOR GFR 0.76 MG/DL (0.55-1.30); GLOMERULAR FILTRATION RATE > 60.0 (>45); GLUCOSE, FASTING 85 MG/DL (70-100); HDL CHOLESTEROL 103 MG/DL (>40); LDL CHOLESTEROL 95 MG/DL (<100); NON-HDL-C 114 MG/DL; POTASSIUM SERUM 4.8 MEQ/L (3.5-5.1); SODIUM LEVEL 139 MEQ/L (136-145); TOTAL PROTEIN 7.1 GM/DL (6.4-8.2); TRIGLYCERIDES LEVEL 93 MG/DL (<150)
== END ==
LOC: M PLALAB 12:07
PROVIDERS: ATTEND Family Medicine
DX: E78.2 Mixed hyperlipidemia (principal)

== ENCOUNTER 2021-09-29 08:50 | Outpatient (CLI) | payer MEDICARE, OTHER ==
[~2021-09-29] VITALS: Ht 139.7 cm; Wt 50.0 kg
[2021-09-29 08:55] VITALS: BP 129/74
[2021-09-29] MEDS ORDERED: diphenhydrAMINE 25MG PO PRIOR TO INFUSION PO ONE (09:00)
[2021-09-29] MEDS ORDERED: ACETAMINOPHEN 650MG PO PRIOR TO INFUSION PO ONE (09:00)
[2021-09-29] MEDS ORDERED: NS 1,000 ML IV SCH (09:00)
[2021-09-29] MEDS ORDERED: inFLIXimab INJECTION 500 MG in NS 200 ML IV ONE (09:00)
[2021-09-29 09:40] VITALS: BP 129/74
[2021-09-29 09:59] VITALS: BP 146/61
[2021-09-29 10:30] VITALS: BP 132/66
[2021-09-29 11:10] VITALS: BP 127/60
== END 2021-09-29 11:10 | disposition home or self-care (01) ==
LOC: M INFU 08:50
PROVIDERS: ATTEND Internal Medicine Gastroenterology
DX: K50.00 Crohn's disease of small intestine without complications (principal); Z88.6 Allergy status to analgesic agent
CPT/HCPCS: 96413; 96415; J1745

== ENCOUNTER 2021-10-27 09:32 | Outpatient (CLI) | payer MEDICARE, OTHER ==
[~2021-10-27] VITALS: Ht 147.3 cm; Wt 45.0 kg
[~2021-10-27 09:32] MED LIST changes: +ACETAMINOPHEN 650MG PO PRIOR TO INFUSION PO ONE; +NS 1,000 ML IV SCH; +diphenhydrAMINE 25MG PO PRIOR TO INFUSION PO ONE; +inFLIXimab INJECTION 500 MG in NS 200 ML IV ONE
[2021-10-27 09:47] VITALS: BP 167/86
[2021-10-27 10:30] VITALS: BP 140/82
[2021-10-27 11:00] VITALS: BP 151/71
[2021-10-27 11:30] VITALS: BP 143/68
[2021-10-27 12:15] VITALS: BP 124/67
== END 2021-10-27 12:30 | disposition home or self-care (01) ==
LOC: M INFU 09:32
PROVIDERS: ATTEND Internal Medicine Gastroenterology
DX: K50.00 Crohn's disease of small intestine without complications (principal); Z88.6 Allergy status to analgesic agent; Z88.8 Allergy status to other drugs, medicaments and biological substances
CPT/HCPCS: 96413; 96415; J1745

== ENCOUNTER 2021-11-24 09:04 | Outpatient (CLI) | payer MEDICARE, OTHER ==
[~2021-11-24] VITALS: Ht 147.3 cm; Wt 45.0 kg
[2021-11-24 09:10] VITALS: BP 193/86
[2021-11-24 10:10] VITALS: BP 173/81
[2021-11-24 10:25] VITALS: BP 145/76
[2021-11-24 10:55] VITALS: BP 143/81
[2021-11-24 12:00] VITALS: BP 145/76
== END 2021-11-24 12:00 | disposition home or self-care (01) ==
LOC: M INFU 09:04
PROVIDERS: ATTEND Internal Medicine Gastroenterology
DX: K50.00 Crohn's disease of small intestine without complications (principal); Z88.6 Allergy status to analgesic agent; Z88.8 Allergy status to other drugs, medicaments and biological substances; Z91.041 Radiographic dye allergy status
CPT/HCPCS: 96413; 96415; J1745

== ENCOUNTER → 2021-11-29 | Outpatient (CLI) | payer MEDICARE, OTHER ==
[~2021-11-29] MED LIST changes: -ACETAMINOPHEN 650MG PO PRIOR TO INFUSION PO ONE; -NS 1,000 ML IV SCH; -diphenhydrAMINE 25MG PO PRIOR TO INFUSION PO ONE; -inFLIXimab INJECTION 500 MG in NS 200 ML IV ONE
[2021-11-29 13:12] LABS: BASO % 0.3 % (0.0-1.0); EOS # 0.1 10^3/uL (0.0-0.5); EOS % 2.1 % (0.0-3.0); HEMATOCRIT 35.5 % (36.0-47.0); HEMOGLOBIN 11.3 g/dl (12.0-15.5); LYMPH # 1.6 10^3/uL (1.5-5.0); LYMPH % 46.6 % (24.0-44.0); MEAN CORPUSCULAR HEMOGLOBIN 32.1 pg (27.0-33.0); MEAN CORPUSCULAR HGB CONC 31.8 g/dl (32.0-36.5); MEAN CORPUSCULAR VOLUME 100.9 fl (80.0-96.0); MONO # 0.2 10^3/uL (0.0-0.8); MONO % 5.9 % (2.0-8.0); NEUTROPHILS # 1.5 10^3/uL (1.5-8.5); NEUTROPHILS % 44.8 % (36.0-66.0); PLATELET COUNT, AUTOMATED 277 10^3/uL (150-450); RED BLOOD COUNT 3.52 10^6/uL (4.00-5.40); WHITE BLOOD COUNT 3.4 10^3/uL (4.0-10.0)
[2021-11-29 13:43] LABS: ALBUMIN 3.6 GM/DL (3.2-5.2); ALT/SGPT 47 U/L (12-78); BILIRUBIN,TOTAL 0.3 MG/DL (0.2-1.0); BLOOD UREA NITROGEN 15 MG/DL (7-18); CARBON DIOXIDE LEVEL 31 MEQ/L (21-32); CHLORIDE LEVEL 106 MEQ/L (98-107); CHOLESTEROL LEVEL 151 MG/DL (<200); CHOLESTEROL RISK RATIO 1.438 (<5); CREATININE FOR GFR 0.71 MG/DL (0.55-1.30); FREE T4 0.74 NG/DL (0.76-1.46); GLOMERULAR FILTRATION RATE > 60.0 (>45); GLUCOSE, FASTING 90 MG/DL (70-100); HDL CHOLESTEROL 105 MG/DL (>40); LDL CHOLESTEROL 38 MG/DL (<100); NON-HDL-C 46 MG/DL; POTASSIUM SERUM 4.3 MEQ/L (3.5-5.1); SODIUM LEVEL 141 MEQ/L (136-145); TOTAL PROTEIN 7.3 GM/DL (6.4-8.2); TRIGLYCERIDES LEVEL 42 MG/DL (<150)
[2021-12-01 11:17] LABS: VITAMIN B12 LEVEL 543 PG/ML (247-911)
== END ==
LOC: M PLALAB 11:24
PROVIDERS: ATTEND Family Medicine
DX: D51.9 Vitamin B12 deficiency anemia, unspecified (principal); Z79.899 Other long term (current) drug therapy

== ENCOUNTER 2021-12-22 09:00 | Outpatient (CLI) | payer MEDICARE, OTHER ==
[~2021-12-22] VITALS: Ht 147.3 cm; Wt 45.0 kg
[~2021-12-22 09:00] MED LIST changes: +ACETAMINOPHEN 650MG PO PRIOR TO INFUSION PO ONE; +NS 1,000 ML IV SCH; +diphenhydrAMINE 25MG PO PRIOR TO INFUSION PO ONE; +inFLIXimab INJECTION 500 MG in NS 200 ML IV ONE
[2021-12-22 09:12] VITALS: BP 139/76
[2021-12-22 10:00] VITALS: BP 126/67
[2021-12-22 10:15] VITALS: BP 126/73
[2021-12-22 10:45] VITALS: BP 130/70
[2021-12-22 11:15] VITALS: BP 127/60
[2021-12-22 11:42] VITALS: BP 138/65
== END 2021-12-22 11:50 | disposition home or self-care (01) ==
LOC: M INFU 09:00
PROVIDERS: ATTEND Internal Medicine Gastroenterology
DX: K50.00 Crohn's disease of small intestine without complications (principal); Z88.6 Allergy status to analgesic agent; Z88.8 Allergy status to other drugs, medicaments and biological substances; Z91.041 Radiographic dye allergy status
CPT/HCPCS: 96413; 96415; J1745

== ENCOUNTER 2022-01-24 09:22 | Outpatient (CLI) | payer MEDICARE, OTHER ==
[~2022-01-24] VITALS: Ht 147.3 cm; Wt 45.0 kg
[~2022-01-24 09:22] MED LIST changes: +ACETAMINOPHEN 650MG PO PRIOR TO INFUSION PO ONE; +NS 1,000 ML IV SCH; +diphenhydrAMINE 25MG PO PRIOR TO INFUSION PO ONE; +inFLIXimab INJECTION 500 MG in NS 200 ML IV ONE
[2022-01-24 10:19] VITALS: BP 141/64
[2022-01-24 10:45] VITALS: BP 114/57
[2022-01-24 12:33] VITALS: BP 119/61
== END 2022-01-24 12:35 | disposition home or self-care (01) ==
LOC: M INFU 09:22
PROVIDERS: ATTEND Internal Medicine Gastroenterology
DX: K50.00 Crohn's disease of small intestine without complications (principal); I10 Essential (primary) hypertension; Z88.6 Allergy status to analgesic agent; Z88.8 Allergy status to other drugs, medicaments and biological substances; Z91.041 Radiographic dye allergy status
CPT/HCPCS: 36592; 80048; 96413; 96415; J1745

== ENCOUNTER → 2022-01-24 | Outpatient (CLI) | payer MEDICARE, OTHER ==
[~2022-01-24] MED LIST changes: -ACETAMINOPHEN 650MG PO PRIOR TO INFUSION PO ONE; -NS 1,000 ML IV SCH; -diphenhydrAMINE 25MG PO PRIOR TO INFUSION PO ONE; -inFLIXimab INJECTION 500 MG in NS 200 ML IV ONE
[2022-01-24 10:56] LABS: BLOOD UREA NITROGEN 17 MG/DL (7-18); CALCIUM LEVEL 8.9 MG/DL (8.8-10.2); CARBON DIOXIDE LEVEL 28 MEQ/L (21-32); CHLORIDE LEVEL 104 MEQ/L (98-107); CREATININE FOR GFR 0.75 MG/DL (0.55-1.30); GLOMERULAR FILTRATION RATE > 60.0 (>45); GLUCOSE, FASTING 86 MG/DL (70-100); POTASSIUM SERUM 4.4 MEQ/L (3.5-5.1); SODIUM LEVEL 138 MEQ/L (136-145)
== END ==
LOC: M LAB 09:25
PROVIDERS: ATTEND Family Medicine
DX: I10 Essential (primary) hypertension (principal)

== ENCOUNTER 2022-02-22 09:03 | Outpatient (CLI) | payer MEDICARE, OTHER ==
[~2022-02-22 09:03] MED LIST changes: -AZAT50TA2 PO; +AZAT50TA37 PO
[2022-02-22 09:45] VITALS: BP 132/66
[2022-02-22 11:49] VITALS: BP 135/65
== END 2022-02-22 11:50 | disposition home or self-care (01) ==
LOC: M INFU 09:03
PROVIDERS: ATTEND Internal Medicine Gastroenterology
DX: K50.00 Crohn's disease of small intestine without complications (principal); Z88.6 Allergy status to analgesic agent; Z88.8 Allergy status to other drugs, medicaments and biological substances; Z91.041 Radiographic dye allergy status
CPT/HCPCS: 96413; 96415; J1745

== ENCOUNTER → 2022-03-09 | Outpatient (CLI) | payer MEDICARE, OTHER ==
[~2022-03-09] MED LIST changes: -ACETAMINOPHEN 650MG PO PRIOR TO INFUSION PO ONE; -NS 1,000 ML IV SCH; -diphenhydrAMINE 25MG PO PRIOR TO INFUSION PO ONE; -inFLIXimab INJECTION 500 MG in NS 200 ML IV ONE
[2022-03-09 15:24] LABS: HEMATOCRIT 33.9 % (36.0-47.0); HEMOGLOBIN 10.9 g/dl (12.0-15.5); MEAN CORPUSCULAR HEMOGLOBIN 33.4 pg (27.0-33.0); MEAN CORPUSCULAR HGB CONC 32.2 g/dl (32.0-36.5); PLATELET COUNT, AUTOMATED 354 10^3/uL (150-450); RED BLOOD COUNT 3.26 10^6/uL (4.00-5.40)
[2022-03-09 15:56] LABS: ALBUMIN 3.7 GM/DL (3.2-5.2); ALT/SGPT 47 U/L (12-78); BILIRUBIN,TOTAL 0.4 MG/DL (0.2-1.0); BLOOD UREA NITROGEN 13 MG/DL (7-18); CALCIUM LEVEL 9.5 MG/DL (8.8-10.2); CARBON DIOXIDE LEVEL 27 MEQ/L (21-32); CHLORIDE LEVEL 102 MEQ/L (98-107); CHOLESTEROL LEVEL 130 MG/DL (<200); CHOLESTEROL RISK RATIO 1.547 (<5); CREATININE FOR GFR 0.68 MG/DL (0.55-1.30); FREE T4 0.86 NG/DL (0.76-1.46); GLOMERULAR FILTRATION RATE > 60.0 (>45); GLUCOSE, FASTING 86 MG/DL (70-100); HDL CHOLESTEROL 84 MG/DL (>40); LDL CHOLESTEROL 33 MG/DL (<100); NON-HDL-C 46 MG/DL; SODIUM LEVEL 137 MEQ/L (136-145); TOTAL PROTEIN 7.5 GM/DL (6.4-8.2); TRIGLYCERIDES LEVEL 63 MG/DL (<150)
[2022-03-09 16:01] LABS: VITAMIN B12 LEVEL > 2000 PG/ML (247-911)
[2022-03-09 16:40] LABS: ATYPICAL LYMPH 6 % (0-5); EOSINOPHILS 1 % (0-3); LYMPHOCYTES 40 % (16-44); MONOCYTES 2 % (0-5); MYELOCYTES 2 % (0-0); NEUTROPHILS 48 % (28-66); PLATELET ESTIMATE NORMAL (NORMAL)
[2022-03-10 08:41] LABS: MONO REFLEX EBV COMP NEGATIVE (NEGATIVE)
[2022-03-11 17:09] LABS: EBV VIRAL CAPSID AG IgG >600.0 U/mL (0.0-17.9); EBV VIRAL CAPSID AG IgM <36.0 U/mL (0.0-35.9)
== END ==
LOC: M PLAIMG 12:51
PROVIDERS: ATTEND Family Medicine
DX: R07.81 Pleurodynia (principal); D72.820 Lymphocytosis (symptomatic); I10 Essential (primary) hypertension; E78.2 Mixed hyperlipidemia; D51.9 Vitamin B12 deficiency anemia, unspecified

== ENCOUNTER 2022-03-23 08:55 | Outpatient (CLI) | payer MEDICARE, OTHER ==
[~2022-03-23] VITALS: Ht 147.3 cm; Wt 45.0 kg
[2022-03-23] MEDS ORDERED: diphenhydrAMINE 25MG PO PRIOR TO INFUSION PO ONE (09:00)
[2022-03-23] MEDS ORDERED: inFLIXimab INJECTION 500 MG in NS 200 ML IV ONE (09:00)
[2022-03-23] MEDS ORDERED: ACETAMINOPHEN 650MG PO PRIOR TO INFUSION PO ONE (09:00)
[2022-03-23] MEDS ORDERED: NS 1,000 ML IV SCH (09:00)
[2022-03-23 09:01] VITALS: BP 134/67
[2022-03-23 10:00] VITALS: BP 112/59
[2022-03-23 10:30] VITALS: BP 116/66
[2022-03-23 11:37] VITALS: BP 118/61
== END 2022-03-23 11:45 | disposition home or self-care (01) ==
LOC: M INFU 08:55
PROVIDERS: ATTEND Internal Medicine Gastroenterology
DX: K50.00 Crohn's disease of small intestine without complications (principal); Z88.8 Allergy status to other drugs, medicaments and biological substances; Z88.6 Allergy status to analgesic agent; Z88.2 Allergy status to sulfonamides; Z91.041 Radiographic dye allergy status; Z91.89 Other specified personal risk factors, not elsewhere classified
CPT/HCPCS: 96413; 96415; J1745

== ENCOUNTER → 2022-04-06 | Outpatient (CLI) | payer MEDICARE, OTHER ==
[2022-04-06 17:05] LABS: BASO % 0.4 % (0.0-1.0); EOS % 1.5 % (0.0-3.0); HEMOGLOBIN 10.7 g/dl (12.0-15.5); LYMPH # 1.2 10^3/uL (1.5-5.0); LYMPH % 46.3 % (24.0-44.0); MEAN CORPUSCULAR HEMOGLOBIN 34.9 pg (27.0-33.0); MEAN CORPUSCULAR HGB CONC 33.4 g/dl (32.0-36.5); MEAN CORPUSCULAR VOLUME 104.2 fl (80.0-96.0); MONO # 0.4 10^3/uL (0.0-0.8); MONO % 13.4 % (2.0-8.0); PLATELET COUNT, AUTOMATED 356 10^3/uL (150-450); RED BLOOD COUNT 3.07 10^6/uL (4.00-5.40); WHITE BLOOD COUNT 2.7 10^3/uL (4.0-10.0)
== END ==
LOC: M PLALAB 14:59
PROVIDERS: ATTEND Internal Medicine Rheumatology
DX: M05.79 Rheumatoid arthritis with rheumatoid factor of multiple sites without organ or systems involvement (principal); Z79.899 Other long term (current) drug therapy

== ENCOUNTER → 2022-04-17 | Outpatient (CLI) | payer MEDICARE, OTHER | LOC: M WHC 08:57 | PROVIDERS: ATTEND Advanced Practice Midwife | DX: Z53.9 Procedure and treatment not carried out, unspecified reason (principal) ==

== ENCOUNTER 2022-04-20 09:00 | Outpatient (CLI) | payer MEDICARE, OTHER ==
[~2022-04-20] VITALS: Ht 147.3 cm; Wt 45.0 kg
[2022-04-20 09:00] VITALS: BP 131/72
[~2022-04-20 09:00] MED LIST changes: +ACETAMINOPHEN 650MG PO PRIOR TO INFUSION PO ONE; +NS 1,000 ML IV SCH; +diphenhydrAMINE 25MG PO PRIOR TO INFUSION PO ONE; +inFLIXimab INJECTION 500 MG in NS 200 ML IV ONE
[2022-04-20 09:45] VITALS: BP 105/61
[2022-04-20] MEDS ORDERED: LISI5TAB11 PO (10:20)
[2022-04-20] MEDS ORDERED: VITAMIN B12 IM (10:24)
[2022-04-20] MEDS ORDERED: AZAT50TA37 PO (10:25)
[2022-04-20 10:43] VITALS: BP 115/65
[2022-04-21] MEDS ORDERED: SIMV40TA20 PO (10:18)
[2022-04-21] MEDS ORDERED: D 50CAP2 PO (10:18)
[2022-04-21] MEDS ORDERED: VENL37TA PO (10:18)
[2022-04-21] MEDS ORDERED: HYDR-3363 PO (10:18)
[2022-04-21] MEDS ORDERED: PRIM250T8 PO (10:18)
== END 2022-04-20 10:45 | disposition home or self-care (01) ==
LOC: M INFU 09:00
PROVIDERS: ATTEND Internal Medicine Gastroenterology
DX: K50.00 Crohn's disease of small intestine without complications (principal); Z88.2 Allergy status to sulfonamides; Z88.6 Allergy status to analgesic agent; Z88.8 Allergy status to other drugs, medicaments and biological substances; Z91.041 Radiographic dye allergy status
CPT/HCPCS: 96413; J1745

== ENCOUNTER → 2022-05-01 | Outpatient (CLI) | payer MEDICARE, OTHER ==
[~2022-05-01] MED LIST changes: +ACET-683 PO; -ACETAMINOPHEN 650MG PO PRIOR TO INFUSION PO ONE; +D 50CAP2 PO; +HYDR-3363 PO; +LIDOCAINE 1% MDV 20ML VIAL As Ordered ONE; +LISI5TAB11 PO; -NS 1,000 ML IV SCH; +PRIM250T8 PO; +SIMV40TA20 PO; +VENL37TA PO; +VITACAP31 PO; +VITAMIN B12 IM; -diphenhydrAMINE 25MG PO PRIOR TO INFUSION PO ONE; -inFLIXimab INJECTION 500 MG in NS 200 ML IV ONE
[2022-05-01 12:42] LABS: BASO % 0.5 % (0.0-1.0); EOS # 0.1 10^3/uL (0.0-0.5); EOS % 1.6 % (0.0-3.0); HEMATOCRIT 34.3 % (36.0-47.0); HEMOGLOBIN 11.6 g/dl (12.0-15.5); LYMPH # 1.6 10^3/uL (1.5-5.0); LYMPH % 41.2 % (24.0-44.0); MEAN CORPUSCULAR HEMOGLOBIN 34.4 pg (27.0-33.0); MEAN CORPUSCULAR HGB CONC 33.8 g/dl (32.0-36.5); MEAN CORPUSCULAR VOLUME 101.8 fl (80.0-96.0); MONO # 0.4 10^3/uL (0.0-0.8); MONO % 10.1 % (2.0-8.0); NEUTROPHILS # 1.8 10^3/uL (1.5-8.5); NEUTROPHILS % 46.3 % (36.0-66.0); PLATELET COUNT, AUTOMATED 230 10^3/uL (150-450); RED BLOOD COUNT 3.37 10^6/uL (4.00-5.40); WHITE BLOOD COUNT 3.9 10^3/uL (4.0-10.0)
[2022-05-01 13:07] VITALS: BP 150/77
== END ==
LOC: M IRPRO 12:04
PROVIDERS: ATTEND Internal Medicine Medical Oncology
DX: D72.829 Elevated white blood cell count, unspecified (principal)

== ENCOUNTER 2022-05-18 09:10 | Outpatient (CLI) | payer MEDICARE, OTHER ==
[~2022-05-18] VITALS: Ht 147.3 cm; Wt 45.0 kg
[~2022-05-18 09:10] MED LIST changes: +ACETAMINOPHEN 650MG PO PRIOR TO INFUSION PO ONE; -LIDOCAINE 1% MDV 20ML VIAL As Ordered ONE; +NS 1,000 ML IV SCH; +diphenhydrAMINE 25MG PO PRIOR TO INFUSION PO ONE; +inFLIXimab INJECTION 500 MG in NS 200 ML IV ONE
[2022-05-18 09:20] VITALS: BP 152/68
[2022-05-18 12:01] VITALS: BP 125/74
== END 2022-05-18 12:00 | disposition home or self-care (01) ==
LOC: M INFU 09:10
PROVIDERS: ATTEND Internal Medicine Gastroenterology
DX: K50.00 Crohn's disease of small intestine without complications (principal); Z88.6 Allergy status to analgesic agent; Z88.8 Allergy status to other drugs, medicaments and biological substances
CPT/HCPCS: 96413; 96415; J1745

== ENCOUNTER 2022-06-27 08:30 | Outpatient (CLI) | payer MEDICARE, OTHER ==
[~2022-06-27] VITALS: Ht 147.3 cm; Wt 45.0 kg
[2022-06-27 08:48] VITALS: BP 128/69
[2022-06-27 10:00] VITALS: BP 117/64
[2022-06-27 11:48] VITALS: BP 131/60
== END 2022-06-27 11:45 | disposition home or self-care (01) ==
LOC: M INFU 08:30
PROVIDERS: ATTEND Internal Medicine Gastroenterology
DX: K50.00 Crohn's disease of small intestine without complications (principal); Z88.2 Allergy status to sulfonamides; Z88.8 Allergy status to other drugs, medicaments and biological substances; Z88.6 Allergy status to analgesic agent
CPT/HCPCS: 96413; 96415; J1745

== ENCOUNTER 2022-07-25 09:30 | Outpatient (CLI) | payer MEDICARE, OTHER ==
[~2022-07-25] VITALS: Ht 147.3 cm; Wt 45.0 kg
[2022-07-25 09:46] VITALS: BP 125/63
[2022-07-25 10:40] VITALS: BP 131/64
[2022-07-25 11:35] VITALS: BP 128/64
== END 2022-07-25 11:40 | disposition home or self-care (01) ==
LOC: M INFU 09:30
PROVIDERS: ATTEND Internal Medicine Gastroenterology
DX: K50.00 Crohn's disease of small intestine without complications (principal); Z88.6 Allergy status to analgesic agent; Z88.8 Allergy status to other drugs, medicaments and biological substances; Z88.2 Allergy status to sulfonamides
CPT/HCPCS: 96413; J1745

== ENCOUNTER → 2022-07-26 | Outpatient (CLI) | payer MEDICARE, OTHER ==
[~2022-07-26] MED LIST changes: -ACETAMINOPHEN 650MG PO PRIOR TO INFUSION PO ONE; -NS 1,000 ML IV SCH; -diphenhydrAMINE 25MG PO PRIOR TO INFUSION PO ONE; -inFLIXimab INJECTION 500 MG in NS 200 ML IV ONE
== END ==
LOC: M SOG 15:21
PROVIDERS: ATTEND Orthopaedic Surgery
DX: M25.511 Pain in right shoulder (principal)

== ENCOUNTER → 2022-07-31 | Outpatient (CLI) | payer MEDICARE, OTHER | LOC: M WHC 15:02 | PROVIDERS: ATTEND Family Medicine | DX: Z12.31 Encounter for screening mammogram for malignant neoplasm of breast (principal) ==

== ENCOUNTER 2022-08-22 09:00 | Outpatient (CLI) | payer MEDICARE, OTHER ==
[~2022-08-22] VITALS: Ht 147.3 cm; Wt 45.0 kg
[~2022-08-22 09:00] MED LIST changes: +ACETAMINOPHEN 650MG PO PRIOR TO INFUSION PO ONE; +NS 1,000 ML IV SCH; +diphenhydrAMINE 25MG PO PRIOR TO INFUSION PO ONE; +inFLIXimab INJECTION 500 MG in NS 200 ML IV ONE
[2022-08-22 09:01] VITALS: BP 119/74
[2022-08-22 10:15] VITALS: BP 128/64
[2022-08-22 12:03] VITALS: BP 115/64
== END 2022-08-22 12:00 | disposition home or self-care (01) ==
LOC: M INFU 09:00
PROVIDERS: ATTEND Internal Medicine Gastroenterology
DX: K50.00 Crohn's disease of small intestine without complications (principal); Z88.6 Allergy status to analgesic agent; Z88.8 Allergy status to other drugs, medicaments and biological substances; Z88.2 Allergy status to sulfonamides
CPT/HCPCS: 96413; 96415; J1745

== ENCOUNTER 2022-10-03 10:00 | Outpatient (CLI) | payer MEDICARE, OTHER ==
[2022-10-03 10:10] VITALS: BP 136/76
[2022-10-03 11:44] VITALS: BP 125/58
== END 2022-10-03 11:40 | disposition home or self-care (01) ==
LOC: M INFU 10:00
PROVIDERS: ATTEND Internal Medicine Gastroenterology
DX: K50.00 Crohn's disease of small intestine without complications (principal); Z88.6 Allergy status to analgesic agent; Z88.8 Allergy status to other drugs, medicaments and biological substances; Z88.3 Allergy status to other anti-infective agents
CPT/HCPCS: 96413; J1745

== ENCOUNTER 2022-11-14 09:30 | Outpatient (CLI) | payer MEDICARE, OTHER ==
[2022-11-14 10:01] VITALS: BP 158/67
[2022-11-14 10:15] VITALS: BP 146/68
[2022-11-14 11:00] VITALS: BP 140/71
== END 2022-11-14 11:10 | disposition home or self-care (01) ==
LOC: M INFU 09:30
PROVIDERS: ATTEND Internal Medicine Gastroenterology
DX: K50.00 Crohn's disease of small intestine without complications (principal); Z88.6 Allergy status to analgesic agent; Z88.8 Allergy status to other drugs, medicaments and biological substances; Z88.3 Allergy status to other anti-infective agents; Z88.2 Allergy status to sulfonamides
CPT/HCPCS: 96413; J1745

== ENCOUNTER → 2022-12-01 | Outpatient (CLI) | payer MEDICARE, OTHER ==
[~2022-12-01] MED LIST changes: -ACETAMINOPHEN 650MG PO PRIOR TO INFUSION PO ONE; -NS 1,000 ML IV SCH; -diphenhydrAMINE 25MG PO PRIOR TO INFUSION PO ONE; -inFLIXimab INJECTION 500 MG in NS 200 ML IV ONE
[2022-12-01 15:52] LABS: BLOOD UREA NITROGEN 15 MG/DL (9-23); CREATININE FOR GFR 0.75 MG/DL (0.55-1.30); GLOMERULAR FILTRATION RATE > 60.0 (>45)
== END ==
LOC: M PLALAB 12:55
PROVIDERS: ATTEND Psychiatry & Neurology Neurology
DX: I10 Essential (primary) hypertension (principal)

== ENCOUNTER 2022-12-26 09:42 | Outpatient (CLI) | payer MEDICARE, OTHER ==
[~2022-12-26] VITALS: Ht 144.8 cm; Wt 45.0 kg
[~2022-12-26 09:42] MED LIST changes: +ACETAMINOPHEN 650MG PO PRIOR TO INFUSION PO ONE; +NS 1,000 ML IV SCH; +diphenhydrAMINE 25MG PO PRIOR TO INFUSION PO ONE; +inFLIXimab INJECTION 500 MG in NS 200 ML IV ONE
[2022-12-26 09:53] VITALS: BP 143/68
[2022-12-26 11:23] VITALS: BP 141/65
== END 2022-12-26 11:25 | disposition home or self-care (01) ==
LOC: M INFU 09:42
PROVIDERS: ATTEND Internal Medicine Gastroenterology
DX: K50.00 Crohn's disease of small intestine without complications (principal); Z88.6 Allergy status to analgesic agent; Z88.8 Allergy status to other drugs, medicaments and biological substances; Z88.3 Allergy status to other anti-infective agents; Z88.2 Allergy status to sulfonamides
CPT/HCPCS: 96413; J1745

== ENCOUNTER → 2022-12-28 | Outpatient (CLI) | payer MEDICARE, OTHER ==
[~2022-12-28] MED LIST changes: -ACETAMINOPHEN 650MG PO PRIOR TO INFUSION PO ONE; -NS 1,000 ML IV SCH; -diphenhydrAMINE 25MG PO PRIOR TO INFUSION PO ONE; -inFLIXimab INJECTION 500 MG in NS 200 ML IV ONE
== END ==
LOC: M RAD 09:34
PROVIDERS: ATTEND Surgery
DX: K43.2 Incisional hernia without obstruction or gangrene (principal)

== ENCOUNTER → 2023-01-05 | Outpatient (CLI) | payer MEDICARE, OTHER ==
[2023-01-05 14:18] LABS: BASO % 0.5 % (0.0-1.0); HEMATOCRIT 32.4 % (36.0-47.0); HEMOGLOBIN 10.4 g/dl (12.0-15.5); LYMPH # 1.7 10^3/uL (1.5-5.0); LYMPH % 40.2 % (24.0-44.0); MEAN CORPUSCULAR HEMOGLOBIN 34.1 pg (27.0-33.0); MEAN CORPUSCULAR HGB CONC 32.1 g/dl (32.0-36.5); MEAN CORPUSCULAR VOLUME 106.2 fl (80.0-96.0); MONO # 0.3 10^3/uL (0.0-0.8); MONO % 7.5 % (2.0-8.0); NEUTROPHILS # 2.1 10^3/uL (1.5-8.5); NEUTROPHILS % 50.6 % (36.0-66.0); PLATELET COUNT, AUTOMATED 271 10^3/uL (150-450); RED BLOOD COUNT 3.05 10^6/uL (4.00-5.40); WHITE BLOOD COUNT 4.1 10^3/uL (4.0-10.0)
[2023-01-05 14:38] LABS: ALBUMIN 3.8 G/DL (3.2-5.2); ALKALINE PHOSPHATASE 46 U/L (46-116); ALT/SGPT 24 U/L (7.0-40); AST/SGOT 18 U/L (<34); BILIRUBIN,TOTAL 0.4 MG/DL (0.3-1.2); BLOOD UREA NITROGEN 14 MG/DL (9-23); CALCIUM LEVEL 8.9 MG/DL (8.3-10.6); CARBON DIOXIDE LEVEL 31 MMOL/L (20-31); CHLORIDE LEVEL 102 MMOL/L (98-107); CHOLESTEROL LEVEL 191 MG/DL (<200); CHOLESTEROL RISK RATIO 2.01 (<5); CREATININE FOR GFR 0.71 MG/DL (0.55-1.30); GLOMERULAR FILTRATION RATE > 60.0 (>45); GLUCOSE, FASTING 81 MG/DL (74-106); HDL CHOLESTEROL 94.6 MG/DL (>40); LDL CHOLESTEROL 77.2 MG/DL (<100); NON-HDL-C 96.4 MG/DL; POTASSIUM SERUM 4.8 MMOL/L (3.5-5.1); SODIUM LEVEL 138 MMOL/L (136-145); TOTAL PROTEIN 6.9 G/DL (5.7-8.2); TRIGLYCERIDES LEVEL 96 MG/DL (<150)
[2023-01-05 14:39] LABS: FREE T4 0.87 NG/DL (0.89-1.76)
[2023-01-05 14:40] LABS: THYROID STIMULATING HORMONE 1.193 uIU/ML (0.55-4.78); TOTAL 25(OH) VITAMIN D 53.6 NG/ML (20.0-100.0)
[2023-01-05 14:41] LABS: FOLATE 14.15 NG/ML (>5.4); VITAMIN B12 LEVEL 532 PG/ML (211-911)
== END ==
LOC: M PLALAB 11:55
PROVIDERS: ATTEND Nurse Practitioner Adult Health
DX: E78.2 Mixed hyperlipidemia (principal); I10 Essential (primary) hypertension; D51.9 Vitamin B12 deficiency anemia, unspecified; M05.70 Rheumatoid arthritis with rheumatoid factor of unspecified site without organ or systems involvement; Z79.899 Other long term (current) drug therapy

== ENCOUNTER → 2023-02-02 | Outpatient (CLI) | payer MEDICARE, OTHER ==
[~2023-02-02] MED LIST changes: +CYAN1000VL IM; +VITA100093 PO
== END ==
LOC: M PLAIMG 10:18
PROVIDERS: ATTEND Otolaryngology
DX: H93.12 Tinnitus, left ear (principal)

== ENCOUNTER → 2023-02-05 | Outpatient (CLI) | payer MEDICARE, OTHER | LOC: M RAD 14:16 | PROVIDERS: ATTEND Otolaryngology | DX: H93.A2 Pulsatile tinnitus, left ear (principal) ==

== ENCOUNTER 2023-02-06 09:40 | Outpatient (CLI) | payer MEDICARE, OTHER ==
[~2023-02-06] VITALS: Ht 147.3 cm; Wt 45.0 kg
[~2023-02-06 09:40] MED LIST changes: +ACETAMINOPHEN 650MG PO PRIOR TO INFUSION PO ONE; -CYAN1000VL IM; +NS 1,000 ML IV SCH; -VITA100093 PO; +diphenhydrAMINE 25MG PO PRIOR TO INFUSION PO ONE; +inFLIXimab INJECTION 500 MG in NS 200 ML IV ONE
[2023-02-06 10:02] VITALS: BP 134/64
[2023-02-06 12:19] VITALS: BP 145/65
[2023-02-07] MEDS ORDERED: VITA100093 PO (07:53)
[2023-02-07] MEDS ORDERED: CYAN1000VL IM (07:53)
== END 2023-02-06 12:25 | disposition home or self-care (01) ==
LOC: M INFU 09:40
PROVIDERS: ATTEND Internal Medicine Gastroenterology
DX: K50.00 Crohn's disease of small intestine without complications (principal); Z88.6 Allergy status to analgesic agent; Z88.3 Allergy status to other anti-infective agents; Z88.2 Allergy status to sulfonamides; Z88.8 Allergy status to other drugs, medicaments and biological substances
CPT/HCPCS: 96413; 96415; J1745

== ENCOUNTER → 2023-02-21 | Day surgery (SDC) | payer MEDICARE, OTHER ==
[~2023-02-21] VITALS: Ht 139.7 cm; Wt 47.4 kg
[~2023-02-21] MED LIST changes: -ACETAMINOPHEN 650MG PO PRIOR TO INFUSION PO ONE; +CYAN1000VL IM; +LIDOCAINE 2% 100MG/5ML SDV (FOR ANES.) As Ordered ONE; +NS 1,000 ML IV ONE; -NS 1,000 ML IV SCH; +PRED5CON PO; +VITA100093 PO; -diphenhydrAMINE 25MG PO PRIOR TO INFUSION PO ONE; -inFLIXimab INJECTION 500 MG in NS 200 ML IV ONE; +propofoL 200 MG/20 ML VIAL As Ordered ONE
[2023-02-21 10:55] VITALS: BP 110/59
== END | disposition home or self-care (01) ==
LOC: M OPP 09:06
PROVIDERS: ATTEND Internal Medicine Gastroenterology
DX: D12.6 Benign neoplasm of colon, unspecified (principal); K50.10 Crohn's disease of large intestine without complications; K31.89 Other diseases of stomach and duodenum; K22.89 Other specified disease of esophagus; Z79.02 Long term (current) use of antithrombotics/antiplatelets; Z79.899 Other long term (current) drug therapy; Z88.2 Allergy status to sulfonamides; Z88.6 Allergy status to analgesic agent; Z88.8 Allergy status to other drugs, medicaments and biological substances; Z91.041 Radiographic dye allergy status

== ENCOUNTER 2023-03-20 09:26 | Outpatient (CLI) | payer MEDICARE, OTHER ==
[~2023-03-20 09:26] MED LIST changes: -LIDOCAINE 2% 100MG/5ML SDV (FOR ANES.) As Ordered ONE; -NS 1,000 ML IV ONE; -propofoL 200 MG/20 ML VIAL As Ordered ONE
[2023-03-20 09:30] VITALS: BP 127/72; O2SAT 97
[2023-03-20] MEDS ORDERED: diphenhydrAMINE 25MG PO PRIOR TO INFUSION PO ONE (09:30)
[2023-03-20] MEDS ORDERED: NS 1,000 ML IV SCH (09:30)
[2023-03-20] MEDS ORDERED: inFLIXimab INJECTION 500 MG in NS 200 ML IV ONE (09:30)
[2023-03-20] MEDS ORDERED: ACETAMINOPHEN 650MG PO PRIOR TO INFUSION PO ONE (09:30)
[2023-03-20 10:30] VITALS: BP 126/74; O2SAT 98
[2023-03-20 10:45] VITALS: BP 146/66; O2SAT 98
[2023-03-20 11:15] VITALS: BP 128/74; O2SAT 99
[2023-03-20 11:45] VITALS: BP 130/67; O2SAT 99
[2023-03-20 12:25] VITALS: BP 141/71; TEMP 36.4; O2SAT 100
== END 2023-03-20 12:25 ==
LOC: M INFU 09:26
PROVIDERS: ATTEND Internal Medicine Gastroenterology
DX: K50.00 Crohn's disease of small intestine without complications (principal); Z88.6 Allergy status to analgesic agent; Z88.8 Allergy status to other drugs, medicaments and biological substances; Z88.3 Allergy status to other anti-infective agents; Z88.2 Allergy status to sulfonamides
CPT/HCPCS: 96413; 96415; J1745

== ENCOUNTER → 2023-04-10 | Outpatient (CLI) | payer MEDICARE, OTHER ==
[2023-04-10 17:52] LABS: BASO % 0.6 % (0.0-1.0); EOS # 0.1 10^3/uL (0.0-0.5); EOS % 1.5 % (0.0-3.0); HEMOGLOBIN 10.4 g/dl (12.0-15.5); LYMPH # 1.3 10^3/uL (1.5-5.0); LYMPH % 40.2 % (24.0-44.0); MEAN CORPUSCULAR HEMOGLOBIN 34.8 pg (27.0-33.0); MEAN CORPUSCULAR HGB CONC 32.5 g/dl (32.0-36.5); MONO # 0.4 10^3/uL (0.0-0.8); MONO % 12.7 % (2.0-8.0); NEUTROPHILS # 1.5 10^3/uL (1.5-8.5); NEUTROPHILS % 44.7 % (36.0-66.0); PLATELET COUNT, AUTOMATED 291 10^3/uL (150-450); RED BLOOD COUNT 2.99 10^6/uL (4.00-5.40); WHITE BLOOD COUNT 3.3 10^3/uL (4.0-10.0)
[2023-04-10 18:12] LABS: ALBUMIN 3.6 G/DL (3.2-5.2); ALKALINE PHOSPHATASE 42 U/L (46-116); ALT/SGPT 11 U/L (7.0-40); AST/SGOT < 8 U/L (<34); BILIRUBIN,TOTAL 0.3 MG/DL (0.3-1.2); BLOOD UREA NITROGEN 17 MG/DL (9-23); CALCIUM LEVEL 8.9 MG/DL (8.3-10.6); CARBON DIOXIDE LEVEL 29 MMOL/L (20-31); CHLORIDE LEVEL 104 MMOL/L (98-107); CHOLESTEROL LEVEL 189 MG/DL (<200); CHOLESTEROL RISK RATIO 2.18 (<5); CREATININE FOR GFR 0.68 MG/DL (0.55-1.30); GLOMERULAR FILTRATION RATE > 60.0 (>45); GLUCOSE, FASTING 88 MG/DL (74-106); HDL CHOLESTEROL 86.6 MG/DL (>40); LDL CHOLESTEROL 78.4 MG/DL (<100); NON-HDL-C 102.4 MG/DL; POTASSIUM SERUM 4.7 MMOL/L (3.5-5.1); SODIUM LEVEL 137 MMOL/L (136-145); TOTAL PROTEIN 6.6 G/DL (5.7-8.2); TRIGLYCERIDES LEVEL 120 MG/DL (<150)
[2023-04-10 18:15] LABS: FREE T4 0.91 NG/DL (0.89-1.76); VITAMIN B12 LEVEL 419 PG/ML (211-911)
[2023-04-10 18:16] LABS: THYROID STIMULATING HORMONE 1.515 uIU/ML (0.55-4.78)
== END ==
LOC: M PLALAB 12:23
PROVIDERS: ATTEND Family Medicine
DX: E78.2 Mixed hyperlipidemia (principal); I10 Essential (primary) hypertension; D51.9 Vitamin B12 deficiency anemia, unspecified

== ENCOUNTER 2023-05-01 09:30 | Outpatient (CLI) | payer MEDICARE, OTHER ==
[2023-05-01 09:30] VITALS: BP 130/68; TEMP 98.1; O2SAT 97
[2023-05-01] MEDS ORDERED: NS 1,000 ML IV SCH (10:00)
[2023-05-01] MEDS ORDERED: ACETAMINOPHEN 650MG PO PRIOR TO INFUSION PO ONE (10:00)
[2023-05-01] MEDS ORDERED: inFLIXimab INJECTION 500 MG in NS 200 ML IV ONE (10:00)
[2023-05-01] MEDS ORDERED: diphenhydrAMINE 25MG PO PRIOR TO INFUSION PO ONE (10:00)
[2023-05-01 11:15] VITALS: BP 135/70; O2SAT 98
[2023-05-01 12:00] VITALS: BP 132/62; O2SAT 98
[2023-05-01 12:35] VITALS: BP 139/67; O2SAT 98
[2023-05-17] MEDS ORDERED: PRED5TA PO (14:48)
[2023-05-17] MEDS ORDERED: OMEP40CA5 PO (14:48)
== END 2023-05-01 12:40 | disposition home or self-care (01) ==
LOC: M INFU 09:30
PROVIDERS: ATTEND Internal Medicine Gastroenterology
DX: K50.00 Crohn's disease of small intestine without complications (principal); Z88.6 Allergy status to analgesic agent; Z88.3 Allergy status to other anti-infective agents; Z88.8 Allergy status to other drugs, medicaments and biological substances; Z88.2 Allergy status to sulfonamides
CPT/HCPCS: 96413; 96415; J1745

== ENCOUNTER 2023-06-12 09:20 | Outpatient (CLI) | payer MEDICARE, OTHER ==
[~2023-06-12] VITALS: Ht 139.7 cm; Wt 48.6 kg
[2023-06-12 09:20] VITALS: BP 138/65; O2SAT 99
[~2023-06-12 09:20] MED LIST changes: +OMEP40CA5 PO; +PRED5TA PO
[2023-06-12] MEDS ORDERED: inFLIXimab INJECTION 500 MG in NS 200 ML IV ONE (09:40)
[2023-06-12] MEDS ORDERED: NS 1,000 ML IV SCH (09:40)
[2023-06-12] MEDS ORDERED: ACETAMINOPHEN 650MG PO PRIOR TO INFUSION PO ONE (09:40)
[2023-06-12] MEDS ORDERED: diphenhydrAMINE 25MG PO PRIOR TO INFUSION PO ONE (09:40)
[2023-06-12 11:00] VITALS: BP 122/65; O2SAT 98
[2023-06-12 12:30] VITALS: BP 138/66; O2SAT 96
== END 2023-06-12 12:30 | disposition home or self-care (01) ==
LOC: M INFU 09:20
PROVIDERS: ATTEND Internal Medicine Gastroenterology
DX: K50.90 Crohn's disease, unspecified, without complications (principal); Z88.5 Allergy status to narcotic agent; Z88.6 Allergy status to analgesic agent; Z91.041 Radiographic dye allergy status
CPT/HCPCS: 96413; 96415; J1745

== ENCOUNTER → 2023-07-17 | Outpatient (CLI) | payer MEDICARE, OTHER ==
[2023-07-17 16:34] LABS: PERCENT SATURATION 35.4 % (13.2-45.0)
[2023-07-17 16:37] LABS: FOLATE 18.26 NG/ML (>5.4)
== END ==
LOC: M PLALAB 12:57
PROVIDERS: ATTEND Nurse Practitioner Adult Health
DX: D51.9 Vitamin B12 deficiency anemia, unspecified (principal)

== ENCOUNTER 2023-07-26 09:14 | Day surgery (SDC) | payer MEDICARE, OTHER ==
[~2023-07-26] VITALS: Ht 139.7 cm; Wt 47.7 kg
[2023-07-26] MEDS ORDERED: LR 1,000 ML IV SCH ×2 (10:10→11:30)
[2023-07-26] MEDS ORDERED: CIPRODEX OTIC SUSP 7.5ML As Ordered ONE (10:28)
[2023-07-26] MEDS ORDERED: ONDANSETRON 4MG 2ML VIAL As Ordered ONE (10:46)
[2023-07-26] MEDS ORDERED: dexmedeTOMIDine (4MCG/ML)200MCG/50ML BTL (PRECEDEX) As Ordered ONE (10:46)
[2023-07-26] MEDS ORDERED: propofoL 200 MG/20 ML VIAL As Ordered ONE (10:46)
[2023-07-26] MEDS ORDERED: fentaNYL 100 MCG/2 ML INJECTION As Ordered ONE (10:46)
[2023-07-26] MEDS ORDERED: LIDOCAINE 2% 100MG/5ML SDV (FOR ANES.) As Ordered ONE (10:46)
[2023-07-26] MEDS ORDERED: MIDAZOLAM INJ 2MG/2ML VIAL As Ordered ONE (10:47)
[2023-07-26] MEDS ORDERED: ACETAMINOPHEN 1000MG 100ML IV BAG As Ordered ONE (11:19)
[2023-07-26] MEDS ORDERED: ePHEDrine SULFATE 25 MG/5 ML(5MG/ML) SYRINGE As Ordered ONE (11:27)
[2023-07-26] MEDS ORDERED: oxyCODONE 5MG TAB PO PRN (11:30)
[2023-07-26] MEDS ORDERED: ONDANSETRON 4MG 2ML VIAL IV PRN (11:30)
[2023-07-26] MEDS ORDERED: fentaNYL 100 MCG/2 ML INJECTION IV PRN (11:30)
[2023-07-26] MEDS ORDERED: HYDROMORPHONE HCL 0.5 MG/ 0.5 ML SYRINGE IV PRN (11:30)
[2023-07-26 12:18] VITALS: BP 131/63; TEMP 98.5; O2SAT 95
== END 2023-07-26 12:46 | disposition home or self-care (01) ==
LOC: M SDC 09:14
PROVIDERS: ATTEND Otolaryngology
DX: H69.92 Unspecified Eustachian tube disorder, left ear (principal); H90.3 Sensorineural hearing loss, bilateral
CPT/HCPCS: 69436; J0131; J1100; J2250; J2405; J3010

== ENCOUNTER 2023-07-31 11:30 | Outpatient (CLI) | payer MEDICARE, OTHER ==
[~2023-07-31] VITALS: Ht 139.7 cm; Wt 48.2 kg
[2023-07-31 11:30] VITALS: BP 132/70; O2SAT 98
[~2023-07-31 11:30] MED LIST changes: +ACETAMINOPHEN 650MG PO PRIOR TO INFUSION PO ONE; +NS 1,000 ML IV SCH; +diphenhydrAMINE 25MG PO PRIOR TO INFUSION PO ONE; +inFLIXimab INJECTION 500 MG in NS 200 ML IV ONE
[2023-07-31 14:45] VITALS: BP 132/70; O2SAT 97
== END 2023-07-31 14:45 ==
LOC: M INFU 11:30
PROVIDERS: ATTEND Internal Medicine Gastroenterology
DX: K50.00 Crohn's disease of small intestine without complications (principal); Z88.6 Allergy status to analgesic agent; Z88.8 Allergy status to other drugs, medicaments and biological substances; Z88.2 Allergy status to sulfonamides
CPT/HCPCS: 96413; 96415; J1745

== ENCOUNTER → 2023-08-13 | Outpatient (CLI) | payer MEDICARE, OTHER ==
[~2023-08-13] MED LIST changes: -ACETAMINOPHEN 650MG PO PRIOR TO INFUSION PO ONE; -NS 1,000 ML IV SCH; -diphenhydrAMINE 25MG PO PRIOR TO INFUSION PO ONE; -inFLIXimab INJECTION 500 MG in NS 200 ML IV ONE
== END ==
LOC: M WHC 13:05
PROVIDERS: ATTEND Family Medicine
DX: Z12.31 Encounter for screening mammogram for malignant neoplasm of breast (principal); M85.851 Other specified disorders of bone density and structure, right thigh; Z79.52 Long term (current) use of systemic steroids; M85.852 Other specified disorders of bone density and structure, left thigh; M85.88 Other specified disorders of bone density and structure, other site

== ENCOUNTER 2023-09-11 11:20 | Outpatient (CLI) | payer MEDICARE, OTHER ==
[~2023-09-11] VITALS: Ht 139.7 cm; Wt 46.8 kg
[2023-09-11 11:24] VITALS: BP 143/67; TEMP 98.5; O2SAT 98
[2023-09-11] MEDS ORDERED: inFLIXimab INJECTION 500 MG in NS 200 ML IV ONE (11:30)
[2023-09-11] MEDS ORDERED: diphenhydrAMINE 25MG PO PRIOR TO INFUSION PO ONE (11:30)
[2023-09-11] MEDS ORDERED: NS 1,000 ML IV SCH (11:30)
[2023-09-11] MEDS ORDERED: ACETAMINOPHEN 650MG PO PRIOR TO INFUSION PO ONE (11:30)
[2023-09-11 14:05] VITALS: BP 125/62; O2SAT 96
== END 2023-09-11 14:05 | disposition home or self-care (01) ==
LOC: M INFU 11:20
PROVIDERS: ATTEND Internal Medicine Gastroenterology
DX: K50.00 Crohn's disease of small intestine without complications (principal); Z88.6 Allergy status to analgesic agent; Z88.8 Allergy status to other drugs, medicaments and biological substances
CPT/HCPCS: 96413; 96415; J1745

== ENCOUNTER 2023-10-23 11:25 | Outpatient (CLI) | payer MEDICARE, OTHER ==
[~2023-10-23] VITALS: Ht 139.7 cm; Wt 47.2 kg
[2023-10-23 11:30] VITALS: BP 135/65; O2SAT 97
[2023-10-23] MEDS ORDERED: ACETAMINOPHEN 650MG PO PRIOR TO INFUSION PO ONE (11:55)
[2023-10-23] MEDS ORDERED: inFLIXimab INJECTION 500 MG in NS 200 ML IV ONE (11:55)
[2023-10-23] MEDS ORDERED: NS 1,000 ML IV SCH (11:55)
[2023-10-23] MEDS ORDERED: diphenhydrAMINE 25MG PO PRIOR TO INFUSION PO ONE (11:55)
[2023-10-23 13:00] VITALS: BP 132/68; O2SAT 97
[2023-10-23 13:05] VITALS: BP 117/62; O2SAT 98
[2023-10-23 14:10] VITALS: BP 117/62; TEMP 36.7; O2SAT 98
== END 2023-10-23 14:10 | disposition home or self-care (01) ==
LOC: M INFU 11:25
PROVIDERS: ATTEND Internal Medicine Gastroenterology
DX: K50.00 Crohn's disease of small intestine without complications (principal); Z88.6 Allergy status to analgesic agent; Z88.8 Allergy status to other drugs, medicaments and biological substances; Z88.2 Allergy status to sulfonamides
CPT/HCPCS: 96413; J1745

== ENCOUNTER 2023-12-04 09:00 | Outpatient (CLI) | payer MEDICARE, OTHER ==
[~2023-12-04] VITALS: Ht 139.7 cm; Wt 47.2 kg
[2023-12-04 09:00] VITALS: BP 142/67; O2SAT 100
[~2023-12-04 09:00] MED LIST changes: +NS 1,000 ML IV SCH
[2023-12-04] MEDS: ACETAMINOPHEN 650MG PO PRIOR TO INFUSION PO ONE (09:11)
[2023-12-04] MEDS: diphenhydrAMINE 25MG PO PRIOR TO INFUSION PO ONE (09:11)
[2023-12-04] MEDS: inFLIXimab INJECTION 500 MG in NS 200 ML IV ONE (09:52)
[2023-12-04 10:26] VITALS: BP 124/65; O2SAT 98
[2023-12-04 11:00] VITALS: BP 121/54; O2SAT 97
[2023-12-04 12:05] VITALS: BP 129/62; O2SAT 98
[2023-12-13] MEDS ORDERED: FOLI1TAB11 (13:43)
== END 2023-12-04 12:05 | disposition home or self-care (01) ==
LOC: M INFU 09:00
PROVIDERS: ATTEND Internal Medicine Gastroenterology
DX: K50.00 Crohn's disease of small intestine without complications (principal); Z88.6 Allergy status to analgesic agent; Z88.8 Allergy status to other drugs, medicaments and biological substances; Z88.2 Allergy status to sulfonamides
CPT/HCPCS: 96413; 96415; J1745

== ENCOUNTER 2024-01-15 09:00 | Outpatient (CLI) | payer MEDICARE, OTHER ==
[~2024-01-15] VITALS: Ht 165.1 cm; Wt 47.4 kg
[2024-01-15 08:55] VITALS: BP 153/71; O2SAT 100
[~2024-01-15 09:00] MED LIST changes: +FOLI1TAB11
[2024-01-15] MEDS: diphenhydrAMINE 25MG PO PRIOR TO INFUSION PO ONE (09:13)
[2024-01-15] MEDS: ACETAMINOPHEN 650MG PO PRIOR TO INFUSION PO ONE (09:14)
[2024-01-15] MEDS: inFLIXimab INJECTION 500 MG in NS 200 ML IV ONE (09:35)
[2024-01-15 10:40] VITALS: BP 131/64; O2SAT 97
[2024-01-15 11:35] VITALS: BP 122/59; O2SAT 97
== END 2024-01-15 11:50 | disposition home or self-care (01) ==
LOC: M INFU 09:00
PROVIDERS: ATTEND Internal Medicine Gastroenterology
DX: K50.019 Crohn's disease of small intestine with unspecified complications (principal); Z88.6 Allergy status to analgesic agent; Z88.2 Allergy status to sulfonamides; Z88.8 Allergy status to other drugs, medicaments and biological substances
CPT/HCPCS: 96413; 96415; J1745

== ENCOUNTER 2024-02-26 09:45 | Outpatient (CLI) | payer MEDICARE, OTHER ==
[~2024-02-26] VITALS: Ht 139.7 cm; Wt 47.7 kg
[2024-02-26 09:35] VITALS: BP 127/69; O2SAT 100
[~2024-02-26 09:45] MED LIST changes: -NS 1,000 ML IV SCH
[2024-02-26] MEDS ORDERED: NS 1,000 ML IV SCH (10:00)
[2024-02-26] MEDS: ACETAMINOPHEN 650MG PO PRIOR TO INFUSION PO ONE (10:03)
[2024-02-26] MEDS: diphenhydrAMINE 25MG PO PRIOR TO INFUSION PO ONE (10:03)
[2024-02-26] MEDS: inFLIXimab INJECTION 500 MG in NS 200 ML IV ONE (10:52)
[2024-02-26 11:15] VITALS: BP 118/62; O2SAT 98
[2024-02-26 12:30] VITALS: BP 128/62; O2SAT 98
== END 2024-02-26 12:30 | disposition home or self-care (01) ==
LOC: M INFU 09:45
PROVIDERS: ATTEND Internal Medicine Gastroenterology
DX: K50.00 Crohn's disease of small intestine without complications (principal); Z88.6 Allergy status to analgesic agent; Z88.8 Allergy status to other drugs, medicaments and biological substances; Z88.2 Allergy status to sulfonamides
CPT/HCPCS: 96413; 96415; J1745

== ENCOUNTER → 2024-03-03 | Outpatient (CLI) | payer MEDICARE, OTHER ==
[2024-03-03 13:29] LABS: BASO % 0.6 % (0.0-1.0); EOS % 1.2 % (0.0-3.0); HEMATOCRIT 32.6 % (36.0-47.0); HEMOGLOBIN 10.6 g/dl (12.0-15.5); LYMPH # 1.2 10^3/uL (1.5-5.0); LYMPH % 35.7 % (24.0-44.0); MEAN CORPUSCULAR HEMOGLOBIN 34.6 pg (27.0-33.0); MEAN CORPUSCULAR HGB CONC 32.5 g/dl (32.0-36.5); MEAN CORPUSCULAR VOLUME 106.5 fl (80.0-96.0); MONO # 0.3 10^3/uL (0.0-0.8); MONO % 10.2 % (2.0-8.0); NEUTROPHILS # 1.7 10^3/uL (1.5-8.5); PLATELET COUNT, AUTOMATED 346 10^3/uL (150-450); RED BLOOD COUNT 3.06 10^6/uL (4.00-5.40); WHITE BLOOD COUNT 3.3 10^3/uL (4.0-10.0)
== END ==
LOC: M PLALAB 11:20
PROVIDERS: ATTEND Physician Assistant Medical
DX: R79.9 Abnormal finding of blood chemistry, unspecified (principal)

== ENCOUNTER 2024-04-08 09:29 | Outpatient (CLI) | payer MEDICARE, OTHER ==
[~2024-04-08] VITALS: Ht 139.7 cm; Wt 48.2 kg
[2024-04-08] MEDS ORDERED: NS 1,000 ML IV SCH (09:30)
[2024-04-08 09:35] VITALS: BP 123/67; O2SAT 96
[2024-04-08] MEDS: diphenhydrAMINE 25MG PO PRIOR TO INFUSION PO ONE (09:51)
[2024-04-08] MEDS: ACETAMINOPHEN 650MG PO PRIOR TO INFUSION PO ONE (09:52)
[2024-04-08] MEDS: inFLIXimab INJECTION 500 MG in NS 200 ML IV ONE (10:13)
[2024-04-08 11:24] VITALS: BP 145/74; O2SAT 98
== END 2024-04-08 11:27 ==
LOC: M INFU 09:29
PROVIDERS: ATTEND Internal Medicine Gastroenterology
DX: K50.00 Crohn's disease of small intestine without complications (principal); Z88.6 Allergy status to analgesic agent; Z88.8 Allergy status to other drugs, medicaments and biological substances; Z88.2 Allergy status to sulfonamides
CPT/HCPCS: 96413; J1745

== ENCOUNTER 2024-05-20 09:40 | Outpatient (CLI) | payer MEDICARE, OTHER ==
[~2024-05-20] VITALS: Ht 139.7 cm; Wt 47.7 kg
[2024-05-20 09:40] VITALS: BP 147/63; O2SAT 97
[~2024-05-20 09:40] MED LIST changes: +NS 1,000 ML IV SCH
[2024-05-20] MEDS: diphenhydrAMINE 25MG PO PRIOR TO INFUSION PO ONE (10:24)
[2024-05-20] MEDS: ACETAMINOPHEN 650MG PO PRIOR TO INFUSION PO ONE (10:24)
[2024-05-20] MEDS: inFLIXimab INJECTION 500 MG in NS 200 ML IV ONE (11:06)
[2024-05-20 12:15] VITALS: BP 130/65; O2SAT 98
== END 2024-05-20 12:20 ==
LOC: M INFU 09:40
PROVIDERS: ATTEND Internal Medicine Gastroenterology
DX: K50.00 Crohn's disease of small intestine without complications (principal); Z88.6 Allergy status to analgesic agent; Z88.8 Allergy status to other drugs, medicaments and biological substances; Z88.2 Allergy status to sulfonamides
CPT/HCPCS: 96413; J1745

== ENCOUNTER → 2024-06-13 | Outpatient (CLI) | payer MEDICARE, OTHER ==
[~2024-06-13] MED LIST changes: -NS 1,000 ML IV SCH; +VALA-3
[2024-06-13 14:37] LABS: BASO % 0.7 % (0.0-1.0); EOS # 0.1 10^3/uL (0.0-0.5); EOS % 1.8 % (0.0-3.0); HEMATOCRIT 33.8 % (36.0-47.0); HEMOGLOBIN 11.1 g/dl (12.0-15.5); LYMPH # 1.5 10^3/uL (1.5-5.0); LYMPH % 34.7 % (24.0-44.0); MEAN CORPUSCULAR HGB CONC 32.8 g/dl (32.0-36.5); MEAN CORPUSCULAR VOLUME 103.7 fl (80.0-96.0); MONO # 0.5 10^3/uL (0.0-0.8); MONO % 10.4 % (2.0-8.0); NEUTROPHILS # 2.3 10^3/uL (1.5-8.5); NEUTROPHILS % 52.2 % (36.0-66.0); PLATELET COUNT, AUTOMATED 249 10^3/uL (150-450); RED BLOOD COUNT 3.26 10^6/uL (4.00-5.40); WHITE BLOOD COUNT 4.4 10^3/uL (4.0-10.0)
[2024-06-13 15:14] LABS: ALBUMIN 3.6 G/DL (3.2-5.2); ALKALINE PHOSPHATASE 63 U/L (46-116); ALT/SGPT 27 U/L (7.0-40); AST/SGOT 24 U/L (<34); BILIRUBIN,TOTAL 0.4 MG/DL (0.3-1.2); BLOOD UREA NITROGEN 21 MG/DL (9-23); CALCIUM LEVEL 9.5 MG/DL (8.3-10.6); CARBON DIOXIDE LEVEL 29 MMOL/L (20-31); CHLORIDE LEVEL 104 MMOL/L (98-107); CHOLESTEROL LEVEL 185 MG/DL (<200); CHOLESTEROL RISK RATIO 2.68 (<5); CREATININE FOR GFR 0.82 MG/DL (0.55-1.30); FOLATE > 24.0 NG/ML (>5.4); GLOMERULAR FILTRATION RATE > 60.0 (>39); GLUCOSE, FASTING 88 MG/DL (74-106); IRON (FE) 74 UG/DL (50-170); LDL CHOLESTEROL 86.8 MG/DL (<100); PERCENT SATURATION 26.1 % (13.2-45.0); POTASSIUM SERUM 4.9 MMOL/L (3.5-5.1); SODIUM LEVEL 137 MMOL/L (136-145); TOTAL IRON BINDING CAPACITY 283 UG/DL (250-425); TOTAL PROTEIN 7.5 G/DL (5.7-8.2); TRIGLYCERIDES LEVEL 146 MG/DL (<150)
[2024-06-13 15:16] LABS: VITAMIN B12 LEVEL 514 PG/ML (211-911)
== END ==
LOC: M PLALAB 10:58
PROVIDERS: ATTEND Nurse Practitioner Adult Health
DX: I10 Essential (primary) hypertension (principal); E78.2 Mixed hyperlipidemia; K50.00 Crohn's disease of small intestine without complications; D51.9 Vitamin B12 deficiency anemia, unspecified

== ENCOUNTER → 2024-06-19 | Outpatient (CLI) | payer MEDICARE, OTHER ==
[2024-06-19 12:41] LABS: INR 1.09; PROTHROMBIN TIME 13.8 SECONDS (12.5-14.5)
== END ==
LOC: M PLALAB 11:48
PROVIDERS: ATTEND Nurse Practitioner Adult Health
DX: Z01.818 Encounter for other preprocedural examination (principal)

== ENCOUNTER 2024-07-01 09:30 | Outpatient (CLI) | payer MEDICARE, OTHER ==
[~2024-07-01] VITALS: Ht 139.7 cm; Wt 48.6 kg
[~2024-07-01 09:30] MED LIST changes: +NS 1,000 ML IV SCH
[2024-07-01 09:40] VITALS: BP 153/73; TEMP 98.5; O2SAT 100
[2024-07-01] MEDS: ACETAMINOPHEN 650MG PO PRIOR TO INFUSION PO ONE (10:03)
[2024-07-01] MEDS: diphenhydrAMINE 25MG PO PRIOR TO INFUSION PO ONE (10:03)
[2024-07-01] MEDS: inFLIXimab INJECTION 500 MG in NS 200 ML IV ONE (10:27)
[2024-07-01 11:00] VITALS: BP 129/68; O2SAT 100
[2024-07-01 11:30] VITALS: BP 130/71; O2SAT 100
[2024-07-01 12:00] VITALS: BP 124/63; O2SAT 100
[2024-07-01 12:39] VITALS: BP 123/65; O2SAT 96
== END 2024-07-01 12:41 ==
LOC: M INFU 09:30
PROVIDERS: ATTEND Internal Medicine Gastroenterology
DX: K50.00 Crohn's disease of small intestine without complications (principal); Z88.8 Allergy status to other drugs, medicaments and biological substances; Z91.030 Bee allergy status; R79.9 Abnormal finding of blood chemistry, unspecified
CPT/HCPCS: 36415; 85025; 96413; 96415; J1745

== ENCOUNTER → 2024-07-01 | Outpatient (CLI) | payer MEDICARE, OTHER ==
[2024-07-01 13:33] LABS: BASO % 0.3 % (0.0-1.0); EOS # 0.1 10^3/uL (0.0-0.5); EOS % 1.8 % (0.0-3.0); HEMATOCRIT 32.2 % (36.0-47.0); HEMOGLOBIN 10.4 g/dl (12.0-15.5); LYMPH # 1.3 10^3/uL (1.5-5.0); LYMPH % 38.2 % (24.0-44.0); MEAN CORPUSCULAR HEMOGLOBIN 33.2 pg (27.0-33.0); MEAN CORPUSCULAR HGB CONC 32.3 g/dl (32.0-36.5); MEAN CORPUSCULAR VOLUME 102.9 fl (80.0-96.0); MONO # 0.3 10^3/uL (0.0-0.8); MONO % 8.3 % (2.0-8.0); NEUTROPHILS # 1.7 10^3/uL (1.5-8.5); NEUTROPHILS % 51.1 % (36.0-66.0); PLATELET COUNT, AUTOMATED 259 10^3/uL (150-450); RED BLOOD COUNT 3.13 10^6/uL (4.00-5.40); WHITE BLOOD COUNT 3.4 10^3/uL (4.0-10.0)
== END ==
LOC: M LAB 12:49
PROVIDERS: ATTEND Physician Assistant Medical
DX: R79.9 Abnormal finding of blood chemistry, unspecified (principal)

== ENCOUNTER 2024-08-12 09:10 | Outpatient (CLI) | payer MEDICARE, OTHER ==
[~2024-08-12] VITALS: Ht 139.7 cm; Wt 46.0 kg
[2024-08-12 09:10] VITALS: BP 112/66; O2SAT 97
[2024-08-12] MEDS: diphenhydrAMINE 25MG PO PRIOR TO INFUSION PO ONE (09:16)
[2024-08-12] MEDS: ACETAMINOPHEN 650MG PO PRIOR TO INFUSION PO ONE (09:17)
[2024-08-12] MEDS: inFLIXimab INJECTION 500 MG in NS 200 ML IV ONE (09:58)
[2024-08-12 10:40] VITALS: BP 114/55; O2SAT 97
[2024-08-12 12:08] VITALS: BP 116/61; O2SAT 97
== END 2024-08-12 12:15 ==
LOC: M INFU 09:10
PROVIDERS: ATTEND Internal Medicine Gastroenterology
DX: K50.00 Crohn's disease of small intestine without complications (principal); Z88.2 Allergy status to sulfonamides; Z88.6 Allergy status to analgesic agent; Z88.8 Allergy status to other drugs, medicaments and biological substances; Z91.030 Bee allergy status
CPT/HCPCS: 96413; 96415; J1745

== ENCOUNTER → 2024-08-15 | Outpatient (CLI) | payer MEDICARE, OTHER ==
[~2024-08-15] MED LIST changes: -NS 1,000 ML IV SCH
== END ==
LOC: M WHC 10:38
PROVIDERS: ATTEND Family Medicine
DX: Z12.31 Encounter for screening mammogram for malignant neoplasm of breast (principal); R92.333 Mammographic heterogeneous density, bilateral breasts

== ENCOUNTER 2024-09-23 09:33 | Outpatient (CLI) | payer MEDICARE, OTHER ==
[~2024-09-23] VITALS: Ht 139.7 cm; Wt 48.1 kg
[~2024-09-23 09:33] MED LIST changes: +NS (Normal Saline) 0.9% 1,000 ML IV SCH; +diphenhydrAMINE 25MG PO PRIOR TO INFUSION PO ONE
[2024-09-23 09:45] VITALS: BP 158/78; O2SAT 96
[2024-09-23] MEDS: ACETAMINOPHEN 650MG PO PRIOR TO INFUSION PO ONE (10:03)
[2024-09-23] MEDS: inFLIXimab INJECTION 500 MG in NS 200 ML IV ONE (10:16)
[2024-09-23 10:35] VITALS: BP 144/66; O2SAT 97
[2024-09-23 11:30] VITALS: BP 138/69; O2SAT 96
== END 2024-09-23 11:30 | disposition home or self-care (01) ==
LOC: M INFU 09:33
PROVIDERS: ATTEND Internal Medicine Gastroenterology
DX: K50.00 Crohn's disease of small intestine without complications (principal); Z88.6 Allergy status to analgesic agent; Z88.8 Allergy status to other drugs, medicaments and biological substances; Z88.2 Allergy status to sulfonamides; Z91.041 Radiographic dye allergy status
CPT/HCPCS: 96413; J1745

== ENCOUNTER → 2024-10-16 | Outpatient (CLI) | payer MEDICARE, OTHER ==
[~2024-10-16] MED LIST changes: -NS (Normal Saline) 0.9% 1,000 ML IV SCH; -diphenhydrAMINE 25MG PO PRIOR TO INFUSION PO ONE
== END ==
LOC: M LAB 15:20
PROVIDERS: ATTEND Internal Medicine Gastroenterology
DX: K50.10 Crohn's disease of large intestine without complications (principal)

== ENCOUNTER 2024-11-06 13:47 | Outpatient (CLI) | payer MEDICARE, OTHER ==
[~2024-11-06] VITALS: Ht 139.7 cm; Wt 48.6 kg
[~2024-11-06 13:47] MED LIST changes: +ACETAMINOPHEN 650MG PO PRIOR TO INFUSION PO ONE; +ALBUTEROL SULFATE 2.5MG/0.5ML INH NEB SOLN INH PRN; +EPINEPHrine INJ 1 MG/ML 1ML AMP IM PRN; +NS (Normal Saline) 0.9% 1,000 ML IV SCH; +diphenhydrAMINE 25MG PO PRIOR TO INFUSION PO ONE; +diphenhydrAMINE 50MG/ML VIAL IV PRN; +inFLIXimab INJECTION 500 MG in NS 200 ML IV ONE; +methylPREDNISolone 125MG 2ML VIAL IV PRN
[2024-11-06 13:55] VITALS: BP 123/60; O2SAT 99
[2024-11-06] MEDS ORDERED: NS (Normal Saline) 0.9% 1,000 ML IV SCH (14:00)
[2024-11-06] MEDS: ACETAMINOPHEN 650MG PO PRIOR TO INFUSION PO ONE (14:16)
[2024-11-06] MEDS: diphenhydrAMINE 25MG PO PRIOR TO INFUSION PO ONE (14:16)
[2024-11-06] MEDS: inFLIXimab INJECTION 500 MG in NS 200 ML IV ONE (14:52)
[2024-11-06 17:00] VITALS: BP 120/60; O2SAT 99
== END 2024-11-06 17:00 | disposition home or self-care (01) ==
LOC: M INFU 13:47
PROVIDERS: ATTEND Internal Medicine Gastroenterology
DX: K50.019 Crohn's disease of small intestine with unspecified complications (principal); Z88.6 Allergy status to analgesic agent; Z88.2 Allergy status to sulfonamides; Z88.8 Allergy status to other drugs, medicaments and biological substances
CPT/HCPCS: 96413; 96415; J1745

== ENCOUNTER → 2024-11-14 | Outpatient (CLI) | payer MEDICARE, OTHER ==
[~2024-11-14] MED LIST changes: -ACETAMINOPHEN 650MG PO PRIOR TO INFUSION PO ONE; -ALBUTEROL SULFATE 2.5MG/0.5ML INH NEB SOLN INH PRN; -EPINEPHrine INJ 1 MG/ML 1ML AMP IM PRN; -NS (Normal Saline) 0.9% 1,000 ML IV SCH; -diphenhydrAMINE 25MG PO PRIOR TO INFUSION PO ONE; -diphenhydrAMINE 50MG/ML VIAL IV PRN; -inFLIXimab INJECTION 500 MG in NS 200 ML IV ONE; -methylPREDNISolone 125MG 2ML VIAL IV PRN
== END ==
LOC: M PLAIMG 14:28
PROVIDERS: ATTEND Nurse Practitioner Adult Health
DX: M25.561 Pain in right knee (principal); M17.0 Bilateral primary osteoarthritis of knee; S83.241A Other tear of medial meniscus, current injury, right knee, initial encounter; S83.281A Other tear of lateral meniscus, current injury, right knee, initial encounter

== ENCOUNTER → 2024-11-24 | Outpatient (CLI) | payer MEDICARE, OTHER | LOC: M SOG 07:49 | PROVIDERS: ATTEND Physician Assistant | DX: Z53.9 Procedure and treatment not carried out, unspecified reason (principal) ==

== ENCOUNTER → 2024-12-03 | Outpatient (CLI) | payer MEDICARE, OTHER | LOC: M SOG 07:49 | PROVIDERS: ATTEND Physician Assistant | DX: M17.11 Unilateral primary osteoarthritis, right knee (principal) ==

== ENCOUNTER 2024-12-18 10:10 | Outpatient (CLI) | payer MEDICARE, OTHER ==
[~2024-12-18] VITALS: Ht 139.7 cm; Wt 46.8 kg
[2024-12-18 10:05] VITALS: BP 115/56; O2SAT 96
[~2024-12-18 10:10] MED LIST changes: +NS (Normal Saline) 0.9% 1,000 ML IV SCH
[2024-12-18] MEDS: diphenhydrAMINE 25MG PO PRIOR TO INFUSION PO ONE (10:58)
[2024-12-18] MEDS: ACETAMINOPHEN 650MG PO PRIOR TO INFUSION PO ONE (10:58)
[2024-12-18] MEDS: inFLIXimab INJECTION 500 MG in NS 200 ML IV ONE (11:07)
[2024-12-18 11:30] VITALS: BP 116/57; O2SAT 96
== END 2024-12-18 13:15 ==
LOC: M INFU 10:10
PROVIDERS: ATTEND Internal Medicine Gastroenterology
DX: K50.019 Crohn's disease of small intestine with unspecified complications (principal)
CPT/HCPCS: 96413; 96415; J1745

== ENCOUNTER 2025-01-29 10:00 | Outpatient (CLI) | payer MEDICARE, OTHER ==
[~2025-01-29] VITALS: Ht 139.7 cm; Wt 46.3 kg
[2025-01-29 09:55] VITALS: BP 143/65; O2SAT 97
[~2025-01-29 10:00] MED LIST changes: +CHLO125TA PO; +CYAN100017 IM; +CYCL-707 PO; +D-3-50003 PO; -FOLI1TAB11; +FOLI1TAB11 PO; +PRES10CA2 PO; -VALA-3; +VALA-3 PO; +VENL37.598 PO
[2025-01-29] MEDS: diphenhydrAMINE 25MG PO PRIOR TO INFUSION PO ONE (11:06)
[2025-01-29] MEDS: ACETAMINOPHEN 650MG PO PRIOR TO INFUSION PO ONE (11:06)
[2025-01-29] MEDS: inFLIXimab INJECTION 500 MG in NS 200 ML IV ONE (11:14)
[2025-01-29 12:15] VITALS: BP 135/61; O2SAT 98
== END 2025-01-29 12:20 | disposition home or self-care (01) ==
LOC: M INFU 10:00
PROVIDERS: ATTEND Internal Medicine Gastroenterology
DX: K50.019 Crohn's disease of small intestine with unspecified complications (principal); Z88.6 Allergy status to analgesic agent; Z88.2 Allergy status to sulfonamides; Z88.8 Allergy status to other drugs, medicaments and biological substances
CPT/HCPCS: 96413; J1745

== ENCOUNTER 2025-02-09 11:01 | Day surgery (SDC) | payer MEDICARE, OTHER ==
[~2025-02-09] VITALS: Ht 139.7 cm; Wt 45.3 kg
[~2025-02-09 11:01] MED LIST changes: +LIDOCAINE 2% 100MG/5ML SDV (FOR ANES.) As Ordered ONE; -NS (Normal Saline) 0.9% 1,000 ML IV SCH; +fentaNYL 100 MCG/2 ML INJECTION As Ordered ONE; +propofoL 200 MG/20 ML VIAL As Ordered ONE
[2025-02-09 14:31] VITALS: TEMP 97.3
[2025-02-09 14:48] VITALS: BP 126/69; O2SAT 96
== END 2025-02-09 14:58 | disposition home or self-care (01) ==
LOC: M OPP 11:01
PROVIDERS: ATTEND Internal Medicine Gastroenterology
DX: K21.00 Gastro-esophageal reflux disease with esophagitis, without bleeding (principal); K44.9 Diaphragmatic hernia without obstruction or gangrene; K22.2 Esophageal obstruction; K50.00 Crohn's disease of small intestine without complications; R13.10 Dysphagia, unspecified; K22.89 Other specified disease of esophagus; I10 Essential (primary) hypertension; G40.909 Epilepsy, unspecified, not intractable, without status epilepticus; E78.00 Pure hypercholesterolemia, unspecified; M06.9 Rheumatoid arthritis, unspecified; Z79.899 Other long term (current) drug therapy; Z79.52 Long term (current) use of systemic steroids; Z90.710 Acquired absence of both cervix and uterus; Z88.8 Allergy status to other drugs, medicaments and biological substances; Z88.6 Allergy status to analgesic agent; Z91.030 Bee allergy status; Z90.89 Acquired absence of other organs; Z86.79 Personal history of other diseases of the circulatory system; Z87.891 Personal history of nicotine dependence
CPT/HCPCS: 43239; 43249; 88305; J3010

== ENCOUNTER 2025-04-23 09:26 | Outpatient (CLI) | payer MEDICARE, OTHER ==
[~2025-04-23] VITALS: Ht 139.7 cm; Wt 44.5 kg
[~2025-04-23 09:26] MED LIST changes: -LIDOCAINE 2% 100MG/5ML SDV (FOR ANES.) As Ordered ONE; +NS (Normal Saline) 0.9% 1,000 ML IV SCH; -fentaNYL 100 MCG/2 ML INJECTION As Ordered ONE; -propofoL 200 MG/20 ML VIAL As Ordered ONE
[2025-04-23 09:45] VITALS: BP 105/57; O2SAT 97
[2025-04-23] MEDS: ACETAMINOPHEN 650MG PO PRIOR TO INFUSION PO ONE (10:05)
[2025-04-23] MEDS: diphenhydrAMINE 25MG PO PRIOR TO INFUSION PO ONE (10:05)
[2025-04-23] MEDS: inFLIXimab INJECTION 500 MG in NS 200 ML IV ONE (10:29)
[2025-04-23 11:30] VITALS: BP 110/70; O2SAT 97
[2025-04-23 12:35] VITALS: BP 100/54; O2SAT 96
== END 2025-04-23 12:35 ==
LOC: M INFU 09:26
PROVIDERS: ATTEND Internal Medicine Gastroenterology
DX: K50.00 Crohn's disease of small intestine without complications (principal); Z88.6 Allergy status to analgesic agent; Z88.8 Allergy status to other drugs, medicaments and biological substances
CPT/HCPCS: 96413; 96415; J1745

== ENCOUNTER → 2025-05-23 | Outpatient (CLI) | payer MEDICARE, OTHER ==
[~2025-05-23] MED LIST changes: -NS (Normal Saline) 0.9% 1,000 ML IV SCH
== END ==
LOC: M RAD 08:55
PROVIDERS: ATTEND Family Medicine
DX: M47.26 Other spondylosis with radiculopathy, lumbar region (principal)

== ENCOUNTER 2025-06-16 10:12 | Outpatient (CLI) | payer MEDICARE, OTHER ==
[~2025-06-16] VITALS: Ht 139.7 cm; Wt 41.8 kg
[2025-06-16] MEDS ORDERED: NS (Normal Saline) 0.9% 1,000 ML IV SCH (10:30)
[2025-06-16] MEDS: diphenhydrAMINE 25MG PO PRIOR TO INFUSION PO ONE (10:38)
[2025-06-16] MEDS: ACETAMINOPHEN 650MG PO PRIOR TO INFUSION PO ONE (10:38)
[2025-06-16 10:40] VITALS: BP 126/65; O2SAT 96
[2025-06-16] MEDS: inFLIXimab INJECTION 500 MG in NS 200 ML IV ONE (11:30)
[2025-06-16 13:45] VITALS: BP 113/54; O2SAT 100
== END 2025-06-16 13:45 | disposition home or self-care (01) ==
LOC: M INFU 10:12
PROVIDERS: ATTEND Internal Medicine Gastroenterology
DX: K50.019 Crohn's disease of small intestine with unspecified complications (principal); Z88.6 Allergy status to analgesic agent; Z88.8 Allergy status to other drugs, medicaments and biological substances; Z91.030 Bee allergy status
CPT/HCPCS: 96413; 96415; J1745

== ENCOUNTER 2025-07-28 10:17 | Outpatient (CLI) | payer MEDICARE, OTHER ==
[~2025-07-28] VITALS: Ht 139.7 cm; Wt 41.8 kg
[2025-07-28 10:30] VITALS: BP 118/55; O2SAT 96
[2025-07-28] MEDS ORDERED: NS (Normal Saline) 0.9% 1,000 ML IV SCH (10:30)
[2025-07-28] MEDS: diphenhydrAMINE 25MG PO PRIOR TO INFUSION PO ONE (10:34)
[2025-07-28] MEDS: ACETAMINOPHEN 650MG PO PRIOR TO INFUSION PO ONE (10:35)
[2025-07-28] MEDS: inFLIXimab INJECTION 500 MG in NS 200 ML IV ONE (11:11)
[2025-07-28 11:45] VITALS: BP 127/81; O2SAT 100
[2025-07-28 12:15] VITALS: BP 120/60; O2SAT 98
[2025-07-28 12:45] VITALS: BP 126/66; O2SAT 98
[2025-07-28 13:05] VITALS: BP 118/80; O2SAT 97
[2025-07-30] MEDS ORDERED: GABA-1172 (14:09)
== END 2025-07-28 13:20 ==
LOC: M INFU 10:17
PROVIDERS: ATTEND Internal Medicine Gastroenterology
DX: K50.00 Crohn's disease of small intestine without complications (principal); Z88.6 Allergy status to analgesic agent; Z88.8 Allergy status to other drugs, medicaments and biological substances; Z88.2 Allergy status to sulfonamides
CPT/HCPCS: 96413; 96415; J1745

== ENCOUNTER → 2025-08-24 | Outpatient (CLI) | payer MEDICARE, OTHER ==
[~2025-08-24] MED LIST changes: +GABA-1172
[2025-08-24 17:44] LABS: BASO # 0.0 10^3/uL (0.0-0.2); BASO % 0.6 % (0.0-1.0); EOS # 0.0 10^3/uL (0.0-0.5); EOS % 0.0 % (0.0-3.0); LYMPH # 1.5 10^3/uL (1.5-5.0); LYMPH % 23.0 % (24.0-44.0); MONO # 0.5 10^3/uL (0.0-0.8); MONO % 7.9 % (2.0-8.0); NEUTROPHILS # 4.3 10^3/uL (1.5-8.5); NEUTROPHILS % 68.0 % (36.0-66.0); PLATELET COUNT, AUTOMATED 334 10^3/uL (150-450)
[2025-08-24 18:06] LABS: C REACTIVE PROTEIN QUANTITATIV < 0.50 MG/DL (<1.0); IRON (FE) 80 UG/DL (50-170); PERCENT SATURATION 40.0 % (13.2-45.0)
== END ==
LOC: M RAD 15:14
PROVIDERS: ATTEND Family Medicine
DX: R06.02 Shortness of breath (principal); R60.0 Localized edema

== ENCOUNTER → 2025-08-24 | Outpatient (REF) | payer MEDICARE, OTHER | LOC: M LAB REF 17:41 | PROVIDERS: ATTEND Family Medicine | DX: R06.02 Shortness of breath (principal) ==

== ENCOUNTER → 2025-08-25 | Outpatient (CLI) | payer MEDICARE, OTHER ==
[~2025-08-25] MED LIST changes: +ISOVUE-370 76% 100 ML VIAL As Ordered ONE
== END ==
LOC: M RAD 12:26
PROVIDERS: ATTEND Family Medicine
DX: J47.9 Bronchiectasis, uncomplicated (principal); R91.8 Other nonspecific abnormal finding of lung field; R06.02 Shortness of breath; R53.83 Other fatigue
CPT/HCPCS: 71275; Q9967

== ENCOUNTER → 2025-09-09 | Outpatient (CLI) | payer MEDICARE, OTHER ==
[~2025-09-09] MED LIST changes: -ISOVUE-370 76% 100 ML VIAL As Ordered ONE
== END ==
LOC: M WHC 12:31
PROVIDERS: ATTEND Family Medicine
DX: Z12.31 Encounter for screening mammogram for malignant neoplasm of breast (principal)

== ENCOUNTER → 2025-09-28 | Outpatient (CLI) | payer MEDICARE, OTHER | LOC: M LAB 11:41 | PROVIDERS: ATTEND Internal Medicine Gastroenterology | DX: K50.00 Crohn's disease of small intestine without complications (principal); Z11.59 Encounter for screening for other viral diseases ==